=== PATIENT | female | born 1955 | race Caucasian/White ===

== ENCOUNTER → 2016-07-13 | Outpatient (CLI) | payer BC ==
[~2016-07-13] MED LIST: ACET-1256 PO; ACET1TAB84 PO; ASPI-232 PO; ATOR10TA82 PO; BUPR-83 PO; CLR10 PO; FLUO40CA8 PO; MELATAB2 PO; MELO7.5T5 PO; MULT-506 PO; PRLSR20 PO; TRAM-10 PO; TRIATAB3 PO
--- NOTE | 2016-07-13 17:13 | MAMMOGRAPHY REPORT ---
BILATERAL DIGITAL SCREENING MAMMOGRAM TOMOSYNTHESIS WITH CAD: 07/13/2016 CLINICAL HISTORY: Routine screening. Patient has no complaints. TECHNIQUE: Breast tomosynthesis in addition to standard 2D mammography was performed. Current study was also evaluated with a Computer Aided Detection (CAD) system. COMPARISON: Mammograms from [facility] dated 08/23/2007, 09/12/2008, 01/20/2010, 01/18/2012. BREAST COMPOSITION: The tissue of both breasts is almost entirely fatty. FINDINGS: There are minimal vascular calcifications in the breasts. Evidence of prior surgery in the right upper outer quadrant. Stable nodular asymmetry in the lateral right breast. No new suspiciou s mass, architectural distortion or cluster of microcalcifications is seen. IMPRESSION: ACR BI-RADS CATEGORY 1: NEGATIVE There is no mammographic evidence of malignancy. A 1 year screening mammogram is recommended. The pa tient will receive written notification of the results. Approximately 10% of breast cancers are not detected with mammography. A negative mammographic report should not delay biopsy if a clinically suggestive mass is present. Christel Marie M.D. ay/:07/13/2016 14:19:56 Stripe Matcher: Sil KAURR, M, [facility] letter sent: Normal 1/2 BI-RADS Code: ACR BI-RADS Category 1: Negative
== END | disposition home or self-care (01) ==
LOC: C.MAMM 13:29
PROVIDERS: ATTEND Nurse Practitioner Family
DX: Z12.31 Encounter for screening mammogram for malignant neoplasm of breast (principal)

== ENCOUNTER → 2016-08-12 | Outpatient (CLI) | payer BC ==
[~2016-08-12] VITALS: Ht 165.1 cm; Wt 88.6 kg
[~2016-08-12] MED LIST changes: -ATOR10TA82 PO; +ATOR10TA88 PO
[2016-08-12 12:08] VITALS: Ht 165.1 cm; Wt 88.6 kg
--- NOTE | 2016-08-12 12:43 | PAT Medication Instructions ---
Service Date Aug 12, 2016. Current Home Medication List Acetaminophen (Tylenol), 2 TAB PO Q6 PRN for Pain Acetaminophen (Tylenol Arthritis Ext Rel), 650 MG PO QPM Bupropion (Wellbutrin), 100 MG PO QAM Fluoxetine (Prozac), 20 MG PO HS Loratadine (Claritin), 10 MG PO QAM Melatonin (Melatonin Maximum Strengt), 2 TAB PO HS Meloxicam (Mobic), 15 MG PO HS Multivitamin (Multivitamin), 1 TAB PO HS Omeprazole (Prilosec), 20 MG PO BID Tramadol (Ultram), 50 MG PO Q8H PRN for Pain Triamterene/Hctz (Triamterene/Hctz 37.5-25MG), 1 TAB PO QAM Medication Instructions For Your Scheduled Surgery - Hold the following medications 7 days prior to surgery per surgeon's instructions: Meloxicam (Mobic), 15 MG PO HS - Hold the following medications the morning of surgery: Loratadine (Claritin), 10 MG PO QAM Triamterene/Hctz (Triamterene/Hctz 37.5-25MG), 1 TAB PO QAM - Take the following medications the morning of surgery with a sip of water: Acetaminophen (Tylenol), 2 TAB PO Q6 PRN for Pain (may take if needed up to 4 hours prior to surgery) Tramadol (Ultram), 50 MG PO Q8H PRN for Pain (may take if needed up to 4 hours prior to surgery) Bupropion (Wellbutrin), 100 MG PO QAM Fluoxetine (Prozac), 20 MG PO QAM Omeprazole (Prilosec), 20 MG PO BID - Take the following medications as scheduled the night before surgery: Acetaminophen (Tylenol), 2 TAB PO Q6 PRN for Pain Acetaminophen (Tylenol Arthritis Ext Rel), 650 MG PO QPM Melatonin (Melatonin Maximum Strengt), 2 TAB PO HS Multivitamin (Multivitamin), 1 TAB PO HS Tramadol (Ultram), 50 MG PO Q8H PRN for Pain Omeprazole (Prilosec), 20 MG PO BID If you have any questions please call us at [phone] or [phone] or [phone]
--- NOTE | 2016-08-12 13:34 | DIAGNOSTIC IMAGING REPORT ---
CHEST PREADMISSION(PA/LAT) CLINICAL HISTORY: 61 years-old Female presenting with PAT. TECHNIQUE: PA and lateral views of the chest were obtained. COMPARISON: 08/14/2016. FINDINGS: Mild tortuosity of the descending thoracic aorta secondary to scoliotic curvature of the lower thoracic spine.. Cardiac silhouette normal. Lungs and pleural spaces clear. Heterogeneous appearance of the right glenoid may suggest degenerative changes. Otherwise osseous structures and upper abdomen normal. IMPRESSION: 1. No acute cardiopulmonary disease. Electronically signed by: Alcides Solorzano 08/12/2016 1:33 PM Dictated Date/Time: 08/12/2016 1:31 PM
[2016-08-12 13:47] LABS: INR 1.1 (0.9-1.1); PROTHROMBIN TIME (PATIENT) 11.7 SECONDS (9.0-12.0)
[2016-08-12 13:49] LABS: HEMATOCRIT 45.8 % (37-47); MEAN CELL VOLUME 67.3 fL (80-100); MEAN CORPUSCULAR HEMOGLOBIN 18.5 pg (25-34); MEAN CORPUSCULAR HGB CONC 27.5 g/dl (32-36); MEAN PLATELET VOLUME 10.2 fL (7.4-10.4); PLATELET COUNT 689 K/uL (130-400); RED BLOOD COUNT 6.81 M/uL (4.2-5.4); WHITE BLOOD COUNT 12.49 K/uL (4.8-10.8)
[2016-08-12 13:55] LABS: URINE APPEARANCE CLOUDY (CLEAR); URINE BILIRUBIN NEG (NEG); URINE COLOR DK YELLOW; URINE EPITHELIAL CELL AUTO >30 /lpf (0-5); URINE NITRITE NEG (NEG); URINE SPECIFIC GRAVITY 1.022 (1.000-1.030); UROBILINOGEN NEG (NEG); ZZUR CULT IF INDIC CLEAN CATCH NO
[2016-08-12 13:59] LABS: BASO % 0.6 %; BASO ABS # 0.07 K/uL (0-0.2); COMPLETE YES; EOS % 3.7 %; ESTIMATED AVERAGE GLUCOSE 114 mg/dl; HA1C FLAG Normal (Normal); IG% 0.2 %; LYMPH % 15.7 %; LYMPH ABS # 1.96 K/uL (1.2-3.4); MICROCYTOSIS PRESENT; MONO % 5.5 %; NEUT % 74.3 %; OVALOCYTES 1+
[2016-08-12 14:00] LABS: MANUAL MICROSCOPIC REQUIRED? NO; REVIEW REQ? NO
[2016-08-12 14:19] LABS: BUN/CREATININE RATIO 16.4 (10-20); CALCIUM 9.2 mg/dl (8.5-10.1); CREATININE 0.99 mg/dl (0.60-1.20); POTASSIUM 4.1 mmol/L (3.5-5.1)
== END | disposition home or self-care (01) ==
LOC: C.LAB 08:00 → EDSTATUS 08-31 07:00
PROVIDERS: ATTEND Orthopaedic Surgery Sports Medicine
DX: Z01.810 Encounter for preprocedural cardiovascular examination (principal); Z01.811 Encounter for preprocedural respiratory examination; Z01.812 Encounter for preprocedural laboratory examination

== ENCOUNTER → 2017-01-31 | Outpatient (CLI) | payer BC ==
[~2017-01-31] MED LIST changes: -ASPI-232 PO; -ATOR10TA88 PO
[2017-01-31 17:50] LABS: ALT/SGPT 31 U/L (12-78); BLOOD UREA NITROGEN 28 mg/dl (7-18); BUN/CREATININE RATIO 30.4 (10-20); CALCIUM 8.3 mg/dl (8.5-10.1); CARBON DIOXIDE 26 mmol/L (21-32); CHLORIDE 107 mmol/L (98-107); CREATININE 0.92 mg/dl (0.60-1.20); GLUCOSE 93 mg/dl (70-99); POTASSIUM 3.4 mmol/L (3.5-5.1); SODIUM 140 mmol/L (136-145)
[2017-01-31 17:53] LABS: ALB/GLOB RATIO 1.1 (0.9-2); ALKALINE PHOSPHATASE 110 U/L (45-117); AST/SGOT 10 U/L (15-37)
[2017-01-31 19:37] LABS: ANISOCYTOSIS PRESENT; BASO % 0.5 %; BASO ABS # 0.06 K/uL (0-0.2); COMPLETE YES; EOS % 1.8 %; HYPERSEGMENTED POLYS 1+; IG% 0.4 %; LYMPH % 13.2 %; LYMPH ABS # 1.66 K/uL (1.2-3.4); MEAN CELL VOLUME 75.9 fL (80-100); MEAN CORPUSCULAR HEMOGLOBIN 22.3 pg (25-34); MEAN CORPUSCULAR HGB CONC 29.4 g/dl (32-36); MEAN PLATELET VOLUME 10.4 fL (7.4-10.4); MONO % 3.3 %; NEUT % 80.8 %; OVALOCYTES 1+; PLATELET COUNT 290 K/uL (130-400); POLYCHROMASIA 1+; RED BLOOD COUNT 6.72 M/uL (4.2-5.4); SPHEROCYTE OCCASIONAL; WHITE BLOOD COUNT 12.61 K/uL (4.8-10.8)
== END | disposition home or self-care (01) ==
LOC: C.LABMFLN 11:47
PROVIDERS: ATTEND Internal Medicine Hematology & Oncology
DX: D47.3 Essential (hemorrhagic) thrombocythemia (principal); D75.1 Secondary polycythemia

== ENCOUNTER → 2017-02-24 | Outpatient (CLI) | payer BC ==
[2017-02-24 16:36] LABS: BASO % 0.3 %; BASO ABS # 0.03 K/uL (0-0.2); EOS % 0.3 %; EOS ABS # 0.03 K/uL (0-0.5); HEMATOCRIT 56.4 % (37-47); HEMOGLOBIN 16.8 g/dL (12.0-16.0); IG# 0.07 K/uL (0.00-0.02); LYMPH % 5.5 %; LYMPH ABS # 0.66 K/uL (1.2-3.4); MEAN CELL VOLUME 81.2 fL (80-100); MEAN CORPUSCULAR HEMOGLOBIN 24.2 pg (25-34); MEAN CORPUSCULAR HGB CONC 29.8 g/dl (32-36); MEAN PLATELET VOLUME 10.3 fL (7.4-10.4); MONO % 1.8 %; MONO ABS # 0.22 K/uL (0.11-0.59); NEUT % 91.5 %; NEUT ABS # 10.95 K/uL (1.4-6.5); NUCLEATED RED BLOOD CELL ABS 0.02 K/uL (0-0); PLATELET COUNT 789 K/uL (130-400); RED CELL DISTRIBUTION WIDTH CV 26.3 % (11.5-14.5); RED CELL DISTRIBUTION WIDTH SD 74.8 fL (36.4-46.3); WHITE BLOOD COUNT 11.96 K/uL (4.8-10.8)
[2017-02-24 17:11] LABS: ALBUMIN 3.8 gm/dl (3.4-5.0); ALT/SGPT 33 U/L (12-78); AST/SGOT 12 U/L (15-37); CREATININE 0.91 mg/dl (0.60-1.20); URIC ACID 7.8 mg/dl (2.6-7.2)
[2017-02-24 17:13] LABS: ALKALINE PHOSPHATASE 114 U/L (45-117); TOTAL PROTEIN 7.8 gm/dl (6.4-8.2)
--- NOTE | 2017-02-24 18:45 | DIAGNOSTIC IMAGING REPORT ---
R FOOT MIN 3 VIEWS ROUTINE HISTORY: 61 years-old Female D45 Polycythemia veraM10.9 [id number] Pain in joint of right an COMPARISON: None available TECHNIQUE: 3 views of the right foot FINDINGS: The bones appear mildly demineralized. Mild to moderate general changes of the first MTP joint. Mild to moderate general changes also noted throughout multiple interphalangeal joints. Articular and periarticular erosions are seen throughout the midfoot, notably involving the metatarsal phalangeal joints. Marginal sclerosis also noted within these distributions. Ill-defined lucencies are noted within the first metatarsal head which may reflect additional erosions. No classic erosions with overhanging edges identified. Moderate sized enthesophyte about the calcaneus. Mild forefoot soft tissue swelling. IMPRESSION: 1. No acute fracture or subluxation. 2. Articular and periarticular erosions are seen throughout the midfoot, notably involving the metatarsal phalangeal joints and navicular cuneiform articulations with areas of marginal sclerosis. These findings suggest inflammatory arthropathy with crystalline arthropathy such as gout also within the differential. 3. Mild bone demineralization. The above report was generated using voice recognition software. It may contain grammatical, syntax or spelling errors. Electronically signed by: Duc Harris M.D. 02/24/2017 6:44 PM Dictated Date/Time: 02/24/2017 4:13 PM
== END | disposition home or self-care (01) ==
LOC: C.RAD1850 15:42
PROVIDERS: ATTEND Internal Medicine Rheumatology
DX: D45 Polycythemia vera (principal); M10.9 Gout, unspecified; M25.571 Pain in right ankle and joints of right foot

== ENCOUNTER → 2017-03-03 | Outpatient (CLI) | payer BC ==
[2017-03-03 18:37] LABS: BASO % 0.8 %; BASO ABS # 0.06 K/uL (0-0.2); EOS % 1.7 %; EOS ABS # 0.13 K/uL (0-0.5); HEMATOCRIT 55.6 % (37-47); HEMOGLOBIN 16.6 g/dL (12.0-16.0); IG# 0.02 K/uL (0.00-0.02); LYMPH ABS # 2.17 K/uL (1.2-3.4); MEAN CELL VOLUME 85.4 fL (80-100); MEAN CORPUSCULAR HEMOGLOBIN 25.5 pg (25-34); MEAN CORPUSCULAR HGB CONC 29.9 g/dl (32-36); MEAN PLATELET VOLUME 10.7 fL (7.4-10.4); MONO % 3.7 %; MONO ABS # 0.28 K/uL (0.11-0.59); NEUT % 64.5 %; NEUT ABS # 4.83 K/uL (1.4-6.5); PLATELET COUNT 300 K/uL (130-400); RED CELL DISTRIBUTION WIDTH CV 27.7 % (11.5-14.5); RED CELL DISTRIBUTION WIDTH SD 85.9 fL (36.4-46.3); WHITE BLOOD COUNT 7.49 K/uL (4.8-10.8)
== END | disposition home or self-care (01) ==
LOC: C.LABMFLN 11:34
PROVIDERS: ATTEND Internal Medicine Hematology & Oncology
DX: D47.3 Essential (hemorrhagic) thrombocythemia (principal); D75.1 Secondary polycythemia

== ENCOUNTER → 2017-03-16 | Outpatient (CLI) | payer BC | END | disposition home or self-care (01) | LOC: C.LABMFLN 13:49 | PROVIDERS: ATTEND Internal Medicine Rheumatology | DX: M10.9 Gout, unspecified (principal); M25.571 Pain in right ankle and joints of right foot; Z79.52 Long term (current) use of systemic steroids ==

== ENCOUNTER → 2017-09-25 | Outpatient (CLI) | payer BC ==
[2017-09-25 18:27] LABS: BASO % 0.5 %; BASO ABS # 0.03 K/uL (0-0.2); EOS % 1.9 %; EOS ABS # 0.11 K/uL (0-0.5); HEMATOCRIT 38.9 % (37-47); IG# 0.01 K/uL (0.00-0.02); LYMPH % 38.8 %; LYMPH ABS # 2.22 K/uL (1.2-3.4); MEAN CELL VOLUME 100.3 fL (80-100); MEAN CORPUSCULAR HEMOGLOBIN 33.5 pg (25-34); MEAN CORPUSCULAR HGB CONC 33.4 g/dl (32-36); MEAN PLATELET VOLUME 10.7 fL (7.4-10.4); MONO ABS # 0.57 K/uL (0.11-0.59); NEUT % 48.6 %; NEUT ABS # 2.78 K/uL (1.4-6.5); PLATELET COUNT 488 K/uL (130-400); RED CELL DISTRIBUTION WIDTH CV 14.1 % (11.5-14.5); RED CELL DISTRIBUTION WIDTH SD 51.5 fL (36.4-46.3); WHITE BLOOD COUNT 5.72 K/uL (4.8-10.8)
[2017-09-25 19:45] LABS: ALBUMIN 3.8 gm/dl (3.4-5.0); ALKALINE PHOSPHATASE 137 U/L (45-117); ALT/SGPT 42 U/L (12-78); AST/SGOT 22 U/L (15-37); BLOOD UREA NITROGEN 19 mg/dl (7-18); CALCIUM 8.6 mg/dl (8.5-10.1); CARBON DIOXIDE 26 mmol/L (21-32); CREATININE 1.03 mg/dl (0.60-1.20); GLUCOSE 93 mg/dl (70-99); SODIUM 138 mmol/L (136-145); TOTAL PROTEIN 7.5 gm/dl (6.4-8.2)
== END | disposition home or self-care (01) ==
LOC: C.LABMFLN 10:53
PROVIDERS: ATTEND Nurse Practitioner Family
DX: D45 Polycythemia vera (principal)

== ENCOUNTER 2018-04-19 06:53 | Inpatient (IN) ==
--- NOTE | 2018-03-08 16:06 | PAT Medication Instructions ---
Medication Instructions Date of Service March 08, 2018 Home Medications allopurinol 200 mg PO QAM aspirin [Aspirin Low Dose] 81 mg PO QPM bupropion HCl 100 mg PO QAM fluoxetine 20 mg PO QAM meloxicam 7.5 mg PO QPM omeprazole 20 mg PO BID ruxolitinib [Jakafi] 10 mg PO QPM triamterene-hydrochlorothiazid .5 tab PO QAM ASK your surgeon for instructions meloxicam 7.5 mg PO QPM ASK your prescriber and surgeon ruxolitinib [Jakafi] 10 mg PO QPM DO NOT take the morning of surgery triamterene-hydrochlorothiazid .5 tab PO QAM Take morning of surgery With a small sip of water, OTHERWISE NOTHING TO EAT OR DRINK AFTER MIDNIGHT: allopurinol 200 mg PO QAM bupropion HCl 100 mg PO QAM fluoxetine 20 mg PO QAM omeprazole 20 mg PO BID Take evening before surgery aspirin [Aspirin Low Dose] 81 mg PO QPM omeprazole 20 mg PO BID Other Notes If you have any questions please call us at [phone] or [phone] or [phone] or [phone]
--- NOTE | 2018-03-09 11:37 | Anesthesiology Consultation ---
Date of Service March 09, 2018 Assessment & Plan (1) Encounter for pre-operative examination: Chart Review Chart Review: Acceptable Risk for Surgery and Patient seen in Pre Admission Testing Teaching & Discussion Instructed NPO after midnight before surgery, except medications with 15 cc of water. Medication instructions provided according to the PAT guidelines. History Surgery Operation Date: 04/19/18 07:15 Proposed Procedures p Left Total Knee Arthroplasty - Fady Gómez MD Height/Weight Height: 5 ft 5 in Weight: 93.4 kg Allergies Allergy/AdvReac Type Severity Reaction Status Date / Time codeine AdvReac Mild NAUSEA/VOMI Verified 03/07/18 09:49 TING SEASONAL Allergy Unknown sneezing, Uncoded 03/07/18 09:49 eyes irritated, runny nose Medications Home Medications Medication Instructions Recorded Confirmed Last Taken allopurinol 200 mg PO QAM 03/07/18 03/07/18 Unknown aspirin [Aspirin Low Dose] 81 mg PO QPM 03/07/18 03/07/18 Unknown bupropion HCl 100 mg PO QAM 03/07/18 03/07/18 Unknown fluoxetine 20 mg PO QAM 03/07/18 03/07/18 Unknown meloxicam 7.5 mg PO QPM 03/07/18 03/07/18 Unknown omeprazole 20 mg PO BID 03/07/18 03/07/18 Unknown ruxolitinib [Jakafi] 10 mg PO QPM 03/07/18 03/07/18 Unknown triamterene-hydrochlorothiazid 0.5 tab PO QAM 03/07/18 03/07/18 Unknown Past Medical History Medical History Anxiety DJD (degenerative joint disease), lumbar GERD (gastroesophageal reflux disease) Gout Hx of polycythemia vera On Jakafi for this, follows with hematology Hypertension Nausea and vomiting after administration of anesthetic agent Numbness and tingling in both hands r/t polycythemia Osteoarthritis Seasonal allergies Past Surgical History Surgical History History of x3 Hx of arthroscopy of right knee Hx of bariatric surgery x2 - Lap bands insertion and removal Hx of hysterectomy Past Anesthesia History No Family Hx of Anesthesia Complications and Other (PONV with more remote morgan geries, has been OK with more recent surgeries) Motion Sickness Screening History of Motion Sickness: Yes Social History Smoking Status: Never smoker Do You Dip or Chew Tobacco: No Hx Alcohol Use: Yes Alcohol type: wine alcohol intake frequency: holidays/special occasions only Hx Substance Use: No Exercise / Class Metabolic Activity III < 4 Walking/Shop/Light housework (+SOB with stairs, per pt 2/2 polycythemia, denies CP) Review of Systems Pt denies any recent chest pain, shortness of breath, palpitations, cough, fever or URI. Physical Exam Vital Signs BP: 126/84 P: 69bpm SPO2: 94% RA T: 98.3 F R: 16 ENMT Mouth: no dental restorations, no chipped teeth and no loose teeth Thyromental Distance: > or= 3.5 Finger Breadths (3.5) Mallampati Class: III Soft tissue growth on hard palate. Pt reports this has been scraped/cut with previous intubations. Neck + thick neck; neck extension not limited Respiratory normal respiratory effort Auscultation: lungs clear to auscultation bilaterally Cardiovascular Rate/Rhythm: regular rate and regular rhythm Heart Sounds: no murmur Vessels: no carotid bruit Testing Electrocardiogram Date: 03/09/18 Findings: + NSR @ (64) Nonspecific ST and TWA. Chest X-Ray Date: 03/09/18 Findings: + NAD Stress Test Date: 08/14/13 Type: exercise Resting EF: 65% 1. Negative stress echo for ischemia at 91% MPHR. 2. Negative exercise ECG for ischemia at 91% MPHR. 3. No arrhythmia were noted with stress. 4. No chest pain. 5. Mildly hypertensive response to exercise. 6. Good exercise tolerance; 10 METS. Echo: 1. Normal LV size, wall motion, and systolic function. Mild concentric left ventricular hypertrophy. Grade I diastolic dysfunction, (abnormal relaxation pattern). 2. No significant valvular abnormalities. 3. No prior study available for comparison. Laboratory Results 03/09/18 11:22 03/09/18 11:22 Blood Type O Negative 03/09/18 11:22 Antibody Screen NEGATIVE 03/09/18 11:22 PT 11.5 Seconds (9.0-12.0) 03/09/18 11:22 INR 1.1 (0.9-1.1) 03/09/18 11:22 APTT 27.3 Seconds (21.0-31.0) 03/09/18 11:22 Hemoglobin A1c 5.7 % (4.5-5.6) H 03/09/18 11:22 Urine Color Yellow 03/09/18 11:22 Urine Appearance Clear (Clear) 03/09/18 11:22 Urine pH 5.0 (4.5-7.5) 03/09/18 11:22 Ur Specific [place] 1.016 (1.000-1.030) 03/09/18 11:22 Urine Protein Negative (Negative) 03/09/18 11:22 Urine Glucose (UA) Negative (Negative) 03/09/18 11:22 Urine Ketones Negative (Negative) 03/09/18 11:22 Urine Nitrite Negative (Negative) 03/09/18 11:22 Ur Leukocyte Esterase Negative (Negative) 03/09/18 11:22
[2018-03-09 11:51] LABS: Basophils # (auto) 0.03 K/uL (0-0.2); Basophils % (auto) 0.4 %; Hematocrit (blood only) 42.5 % (37-47); Hemoglobin 13.5 g/dL (12.0-16.0); Immature Granulocytes # (auto) 0.03 K/uL (0.00-0.02); Immature Granulocytes % (auto) 0.4 %; Lymphocytes # (auto) 1.65 K/uL (1.2-3.4); Lymphocytes % (auto) 24.7 %; Mean Corpuscular Hgb Conc 31.8 g/dL (32-36); Mean Corpuscular Volume 93.2 fL (80-100); Mean Platelet Volume 11.1 fL (7.4-10.4); Monocytes % (auto) 4.5 %; Neutrophils # (auto) 4.47 K/uL (1.4-6.5); Platelet Count 547 K/uL (130-400); RDW Coefficient of Variation 14.8 % (11.5-14.5); RDW Standard Deviation 49.7 fL (36.4-46.3); Red Blood Count 4.56 M/uL (4.2-5.4); White Blood Count 6.68 K/uL (4.8-10.8)
[2018-03-09 11:56] LABS: Estimated Average Glucose 117 mg/dl; Hemoglobin A1C 5.7 % (4.5-5.6)
[2018-03-09 11:57] LABS: Appearance Urine Clear (Clear); Bilirubin Urine Negative (Negative); Blood Urine Negative (Negative); Color Urine Yellow; Glucose Urine UA Negative (Negative); Ketones Urine Negative (Negative); Leukocyte Esterase Urine Negative (Negative); Nitrite Urine Negative (Negative); Protein Urine Negative (Negative); Specific Gravity Urine 1.016 (1.000-1.030); Urobilinogen Urine Negative (Negative)
[2018-03-09 12:01] LABS: INR 1.1 (0.9-1.1); Partial Thromboplastin Ratio 1.1; Partial Thromboplastin Time 27.3 Seconds (21.0-31.0); Prothrombin Time 11.5 Seconds (9.0-12.0)
--- NOTE | 2018-03-09 12:10 | XRay Report ---
XR chest Pre-admission PA/Lat HISTORY: 62 years-old Female pat preoperative exam. No acute chest complaints COMPARISON: Chest radiograph 08/12/2016 TECHNIQUE: PA and lateral views of the chest FINDINGS: Cardiomediastinal and hilar silhouettes appear unchanged. No pneumothorax, pleural effusion, focal ai rspace consolidation or overt pulmonary edema. Severe degenerative changes about the right shoulder. Convex left curvature about the mid to lower thoracic spine with multilevel spondylitic spurring and intervertebral disc space narrowing. IMPRESSION: No acute process. The above report was generated using voice recognition software. It may contain grammatical, syntax o r spelling errors. Electronically signed by: Duc Harris M.D. 03/09/2018 12:08 PM
[2018-03-09 12:29] LABS: Albumin Level 3.9 gm/dl (3.4-5.0); BUN Creatinine Ratio 20.4 (10-20); Calcium 8.7 mg/dl (8.5-10.1); Creatinine Clr Calc Pharmacy 64.9 ml/min; Est GFR (African American) 69.8; Est GFR (Non-African American) 60.2; Potassium 3.5 mmol/L (3.5-5.1)
--- NOTE | 2018-04-18 21:05 | History and Physical Report ---
DATE OF ADMISSION: 04/19/2018 CHIEF COMPLAINT: Chronic left knee pain. HISTORY OF PRESENT ILLNESS: This is a 63-year-old female patient of Dr. Gómez'la complaining of chronic left knee pain and instability, longstanding, now progressively getting worse. The patient has failed conservative treatment including intra-articular injections, tramadol and the use of a brace. She has increased pain with weightbearing activities and her pain does interfere with her activities of daily living. 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 SOCIAL HISTORY: Nonsmoker, nondrinker. PAST SURGICAL HISTORY: C-sections x3 and hysterectomy. FAMILY HISTORY: Noncontributory. REVIEW OF SYSTEMS: Chronic left knee pain and instability. Otherwise denies any shortness of breath, chest pain, nausea, vomiting or any joint complaints. MEDICATIONS: Triamterene/hydrochlorothiazide 37.5/25 daily, bupropion 100 mg daily, loratadine 10 mg daily, omeprazole 20 mg daily, fluoxetine 20 mg daily, Jakafi 10 mg twice daily, meloxicam 15 mg daily. ALLERGIES: INCLUDE CODEINE. PHYSICAL EXAMINATION: GENERAL: Well-developed, well-nourished 63-year-old female in no acute distress. She is alert and oriented x3 and pleasant. HEENT: Normocephalic, atraumatic. Extraocular motions are intact. Pupils are equal and reactive to light. HEART: Regular rate and rhythm. No murmurs appreciated. LUNGS: Clear. ABDOMEN: Soft, nontender, bowel sounds present. EXTREMITIES: Left knee reveals a varus deformity with mild effusion. She has medial joint line tenderness with crepitation with passive range of motion. Range of motion is 0-135. She has 5/5 strength with pain. NEUROLOGIC: Neurovascularly, she is intact in the left lower extremity. DIAGNOSES: Left knee end-stage osteoarthritis, polycythemia vera, osteoarthritis, acid reflux, obesity. PLAN: The patient was advised of her diagnosis. Indications, risks, benefits, postop course have all been reviewed. The patient wished to proceed with a left total knee arthroplasty. Necessary consent forms, preoperative testing and clearances will be obtained.
[~2018-04-19 06:53] MED LIST changes: -ACET-1256 PO; -ACET1TAB84 PO; +ACETAMINOPHEN 500 MG TAB PO SCH; +BUPIVACAINE 0.5 % 5 MG/1 ML PF 10ML VIAL ONE; +BUPIVACAINE/EPINEPHRINE 0.5% MPF 1:200,000 30 ML VIAL ONE; -BUPR-83 PO; +CEFAZOLIN 2000MG 2,000 MG/15 ML SYR IV SCH; -CLR10 PO; +CeleBREX 200 MG CAP PO SCH; +DEXAMETHASONE SOD INJ 4 MG/ML VIAL ONE; +FAMOTIDINE 20 MG TAB PO SCH; -FLUO40CA8 PO; +GABAPENTIN 300 MG x 2 PO SCH; +LR 500ML BOLUS, THEN 15ML/HR IV SCH; -MELATAB2 PO; -MELO7.5T5 PO; +METOCLOPRAMIDE HCL 10 MG TABLET PO SCH; -MULT-506 PO; -PRLSR20 PO; +ROPIVACAINE 0.5% HCL/PF 150 MG, BUPIVACAINE 0.5% MPF 30 ML, EPINEPHrine 30MG/30ML (OR U... INFIL SCH; -TRAM-10 PO; -TRIATAB3 PO; +dexAMETHasone 4 MG TAB PO SCH
[2018-04-19] MEDS ORDERED: PROPOFOL IV EMULSION 10 MG/ML 20 ML VIAL IV ONE ×3 (07:46→10:53)
[2018-04-19] MEDS ORDERED: LIDOCAINE HCL 2% 2 ML VIAL/AMP(20MG/ML) INFIL ONE (07:46)
[2018-04-19] MEDS ORDERED: fentaNYL citrate 100 MCG/2 ML VIAL ONE (07:46)
[2018-04-19] MEDS ORDERED: MIDAZOLAM HCL 1 MG/ML 2ML VIAL ONE (07:46)
[2018-04-19] MEDS ORDERED: POVIDONE-IODINE OP SOLN 30 ML BTL ONE (09:07)
[2018-04-19] MEDS ORDERED: ORTHO JOINT ANESTHETIC ONE (09:07)
[2018-04-19] MEDS ORDERED: BACITRACIN INJ 50,000 UNIT VIAL ONE (09:07)
--- NOTE | 2018-04-19 09:13 | History & Physical Bridge Note ---
Date of Service April 19, 2018 History & Physical Bridge Note I have examined the patient, reviewed the History & Physical and in the interval since the performance of the History & Physical I have noted the following changes of clinical significance: no changes noted
[2018-04-19] MEDS ORDERED: ONDANSETRON INJ 2 MG/ML 2 ML VIAL ONE (09:44)
[2018-04-19] MEDS ORDERED: fentaNYL citrate 100 MCG/2 ML VIAL IV PRN (09:59)
[2018-04-19] MEDS ORDERED: ePHEDrine sulfate 50 MG/ML AMP IV PRN (09:59)
[2018-04-19] MEDS ORDERED: ATROPINE SULFATE 0.1 MG/ML 10ML SYR IV PRN (09:59)
[2018-04-19] MEDS ORDERED: ONDANSETRON INJ 2 MG/ML 2 ML VIAL IV PRN ×2 (09:59→12:13)
--- NOTE | 2018-04-19 10:01 | Anesthesiology Progress Note ---
Date of Service April 19, 2018 Anesthesia Post Procedure Vital Signs Vital Signs: Temp Pulse Resp BP Pulse Ox 04/19/18 08:17 36.8 C 68 20 151/97 H 94 Pain Intensity Left Knee: Pain Intensity: 7 Notes Mental Status: alert / awake / arousable Patient Amnestic to Procedure: Yes Nausea / Vomiting: adequately controlled Pain: adequately controlled Airway Patency, RR, SpO2: stable & adequate BP & HR: stable & adequate Hydration State: stable & adequate Neuraxial Anesthesia: was administered and sensory block is resolving Anesthetic Complications: no major complications apparent
--- NOTE | 2018-04-19 11:24 | Post Operative Brief Note ---
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
--- NOTE | 2018-04-19 11:47 | XRay Report ---
XR knee LT 2V routine CLINICAL HISTORY: Surgical Post Op COMPARISON: None FINDINGS: Alignment of the total left knee arthroplasty is anatomic. There is no fracture or unexpec shauna radiopaque foreign body. There are drains and skin rui. IMPRESSION: Expected findings following total left knee arthroplasty. Electronically signed by: Jonatan Lofton M.D. 04/19/2018 11:46 AM
--- NOTE | 2018-04-19 11:54 | Anesthesiology Progress Note ---
Date of Service April 19, 2018 Anesthesia Post Procedure Vital Signs Vital Signs: Temp Pulse Pulse Resp BP Pulse Ox 04/19/18 11:45 36.6 C 80 14 109/73 96 04/19/18 11:35 84 14 124/70 98 04/19/18 11:25 37.2 C 87 14 125/73 98 04/19/18 08:17 36.8 C 68 20 151/97 H 94 Pain Intensity Left Knee: Pain Intensity: 7 Notes Mental Status: alert / awake / arousable Patient Amnestic to Procedure: Yes Nausea / Vomiting: adequately controlled Pain: adequately controlled Airway Patency, RR, SpO2: stable & adequate BP & HR: stable & adequate Hydration State: stable & adequate Neuraxial Anesthesia: was administered and sensory block is resolving Anesthetic Complications: no major complications apparent
[2018-04-19] MEDS ORDERED: MAGNESIUM HYDROXIDE SUSP 30 ML UDC PO PRN (12:13)
[2018-04-19] MEDS ORDERED: BISACODYL 10 MG SUPP PR PRN (12:13)
[2018-04-19] MEDS ORDERED: NALOXONE HCL 0.4 MG/1 ML VIAL/CARP IV PRN (12:13)
[2018-04-19] MEDS ORDERED: SODIUM CHLORIDE 0.9% 1000ML 1,000 ML IV SCH (12:13)
[2018-04-19] MEDS ORDERED: HYDROmorphone INJ 0.5 MG/0.5 ML SYR IV PRN (12:13)
[2018-04-19] MEDS: ACETAMINOPHEN 500 MG TAB PO SCH ×2 (13:22→20:58)
[2018-04-19] MEDS: RUXOLITINIB 10 MG PO SCH (14:48)
--- NOTE | 2018-04-19 15:29 | Consultation ---
Date of Consultation April 19, 2018 Assessment & Plan (1) History of total knee arthroplasty: This patient is a 63-year-old female with a history of polycythemia vera and thrombocytosis, GERD, HTN, anxiety disorder, gout, prediabetes, elevated alkaline phosphatase, and osteoarthritis, who is admitted after having a left TKA -Postoperative management as per orthopedic surgery -Pain control with scheduled acetaminophen, received dexamethasone and Celebrex preoperatively as well as gabapentin. Also pain control with IV Dilaudid as needed and tramadol as needed -Continue bowel regimen with bisacodyl MS as needed, and scheduled senna at nighttime -DVT prophylaxis with Xarelto 10 mg daily as recommended by her educational diagnostician given her propensity for clot with polycythemia vera and thrombocytosis -Drain in place-management as per orthopedics -Follow postoperative CBC in the morning (2) Hx of polycythemia vera: Follows with hematology, hemoglobin preoperatively was 13.5 and stable Was on hydroxyurea upon diagnosis in 01/2017, is Indra 2 mutation positive, now on Jakafi 10 mg daily and will continue on that here -Follow CBC in the morning (3) Hypertension: Blood pressures here have been normal -will hold Dyazide in the morning until renal function and blood pressure assessed and restart when needed -Follow BMP in the morning (4) Anxiety: Stable -Continue bupropion SR 100 mg once daily as prescribed at home -Continue Prozac 20 mg once daily (5) GERD (gastroesophageal reflux disease): -Stable -Continue PPI once daily (6) Gout: No acute flares at this time. Seen by rheumatology and thought to be secondary possibly to her polycythemia vera and previously possibly due to hydroxyurea use -Continue allopurinol 200 mg once daily -Takes prednisone as needed flareups (7) Osteoarthritis: Stable -Continue pain control as needed-was on meloxicam at home (8) Thrombocytosis: Platelets stable from previous in the 500s-followed by hematology who is aware of this and is following closely -Follow CBC in the morning -Is on her aspirin 81 mg daily to prevent stroke (9) Prediabetes: Hemoglobin A1c barely elevated into the prediabetic range at 5.7% on preoperative labs -Needs counseling on weight loss and low carbohydrate diet No need for sliding scale insulin here (10) DVT prophylaxis: Xarelto 10 mg daily to start in the morning, SCDs Disposition-remain on surgical postoperative floor Hospitalist service will follow along at this time History of Present Illness Reason for Consultation: Postop medical management Requesting Physician: Dr. Gómez Attending Physician: Fady Gómez MD History of Present Illness This patient is a 63-year-old female with a history of polycythemia vera and thrombocytosis, GERD, HTN, anxiety disorder, gout, prediabetes, elevated alkaline phosphatase, and osteoarthritis, who is admitted after having a left TKA. She is doing very well postoperatively. She denies headache or lightheadedness, denies nausea or vomiting and is tolerating p.o. She denies chest pain or shortness of breath. Denies abdominal pain, constipation, diarrhea, or urinary symptoms. Allergies Allergy/AdvReac Type Severity Reaction Status Date / Time codeine AdvReac Mild NAUSEA/VOMI Verified 04/19/18 08:06 TING SEASONAL Allergy Unknown sneezing, Uncoded 04/19/18 08:06 eyes irritated, runny nose Home Medications Home Medications Medication Instructions Recorded Confirmed Type allopurinol 200 mg PO QAM 03/07/18 04/19/18 History aspirin [Aspirin Low Dose] 81 mg PO QPM 03/07/18 04/19/18 History bupropion HCl 100 mg PO QAM 03/07/18 04/19/18 History fluoxetine 20 mg PO QAM 03/07/18 04/19/18 History meloxicam 7.5 mg PO QPM 03/07/18 04/19/18 History omeprazole 20 mg PO BID 03/07/18 04/19/18 History ruxolitinib [Jakafi] 10 mg PO QPM 03/07/18 04/19/18 History triamterene-hydrochlorothiazid 0.5 tab PO QAM 03/07/18 04/19/18 History Patient History Medical History Elevated alkaline phosphatase level Prediabetes Thrombocytosis Anxiety DJD (degenerative joint disease), lumbar GERD (gastroesophageal reflux disease) Gout Hx of polycythemia vera On Jakafi for this, follows with hematology Hypertension Numbness and tingling in both hands r/t polycythemia Osteoarthritis Seasonal allergies Surgical History History of tonsillectomy History of x3 Hx of arthroscopy of right knee Hx of bariatric surgery x2 - Lap bands insertion and removal Hx of hysterectomy Nausea and vomiting after administration of anesthetic agent Family History Other Family history non-contributory Social History Preferred Language: [place] Communication Ability: Effective Beliefs That Will Affect Care: None marital status: Current Living Situation: Family Other Information That Helps Us Care for You: No Feels Safe at Home: Yes Safety Concerns: Feels Safe At This Time Smoking Status: Never smoker Hx Alcohol Use: Yes Hx Substance Use: No Review of Systems 14 point review of systems otherwise reviewed and negative except as per HPI. Physical Exam Vital Signs (Past 24 Hours): Last Vital Signs Temp 37.1 C 04/19/18 11:50 Pulse 81 04/19/18 13:50 Resp 18 04/19/18 13:50 BP 129/76 04/19/18 13:50 Pulse Ox 93 04/19/18 13:50 Constitutional: WD/WN, vitals as above Eyes: PERRL, conjunctivae normal, anicteric sclerae ENMT: external ear and nose normal, oropharynx normal Neck: trachea midline, no thyromegaly Respiratory: normal respiratory effort, lungs clear to auscultation Cardiovascular: RRR, no murmur, no edema Gastrointestinal (Abdomen): normal bowel sounds, soft, nontender, no hepatosplenomegaly Musculoskeletal: Extremities: + extremities abnormal to inspection (Left lower extremity with large Oscar wrap in place not removed), no cyanosis and no clubbing Skin: no rashes, warm and dry Neurologic: moves all extremities and awake; no focal motor deficits Psychiatric: A+Ox3, euthymic affect Results & Data Laboratory Results Preoperative laboratory values reviewed and notable for: Hemoglobin 13.5, platelets 547 CMP within normal limits Hemoglobin A1c mildly elevated at 5.7% (1) Hypertension Hypertension type: essential hypertension Qualified Code(s): I10 - Essential (primary) hypertension (2) GERD (gastroesophageal reflux disease) Esophagitis presence: esophagitis presence not specified Qualified Code(s): K21.9 - Gastro-esophageal reflux disease without esophagitis (3) Gout Gout site: unspecified site Gout etiology: other secondary cause Chronicity: unspecified Qualified Code(s): M10.40 - Other secondary gout, unspecified site (4) History of total knee arthroplasty Laterality: left Qualified Code(s): Z96.652 - Presence of left artificial knee joint
[2018-04-19] MEDS: CEFAZOLIN 2000MG 2,000 MG/15 ML SYR IV SCH (18:36)
[2018-04-19] MEDS: TRAMADOL HCL 50 MG TABLET PO PRN ×2 (18:37→19:31)
[2018-04-19] MEDS: ASPIRIN 81 MG ECTAB PO SCH (20:59)
[2018-04-19] MEDS: SENNA 8.6 MG TAB PO SCH (20:59)
[2018-04-19] MEDS: DOCUSATE SODIUM 100 MG CAP PO SCH (21:30)
[2018-04-20] MEDS: CEFAZOLIN 2000MG 2,000 MG/15 ML SYR IV SCH (02:06)
[2018-04-20] MEDS: ACETAMINOPHEN 500 MG TAB PO SCH ×3 (05:30→21:42)
[2018-04-20 06:16] LABS: Hematocrit (blood only) 36.6 % (37-47); Hemoglobin 11.7 g/dL (12.0-16.0); Mean Platelet Volume 10.8 fL (7.4-10.4); Platelet Count 560 K/uL (130-400); RDW Coefficient of Variation 14.6 % (11.5-14.5); RDW Standard Deviation 49.5 fL (36.4-46.3); Red Blood Count 3.98 M/uL (4.2-5.4); White Blood Count 15.71 K/uL (4.8-10.8)
[2018-04-20 06:49] LABS: BUN Creatinine Ratio 25.9 (10-20); Calcium 8.5 mg/dl (8.5-10.1); Creatinine Clr Calc Pharmacy 56.6 ml/min; Est GFR (African American) 59.7; Est GFR (Non-African American) 51.5; Potassium 4.5 mmol/L (3.5-5.1)
--- NOTE | 2018-04-20 08:06 | Orthopedic Progress Note ---
Date of Service April 20, 2018 Assessment & Plan (1) History of total knee arthroplasty: POD #1, Left TKA DVT proph- Xarelto/ ASA PT/ OT D/C planning- Home w OPPT As per medicine. Subjective POD #1, Feeling well, denies sob, cp, n/v. Pain controlled well. Platelets at normal range for her at 560, h/o polycythemia vera. Physical Exam Vital Signs (Past 24 Hours): Last Vital Signs Temp 37.0 C 04/20/18 07:02 Pulse 64 04/20/18 07:02 Resp 18 04/20/18 07:02 BP 104/68 04/20/18 07:02 Pulse Ox 95 04/20/18 07:02 Physical Exam: Left knee dressings c/d/i, no drainage, toes and ankle mobile. A&Ox3, no calf tenderness. (1) History of total knee arthroplasty Laterality: left Qualified Code(s): Z96.652 - Presence of left artificial knee joint
[2018-04-20] MEDS: MULTIVITAMIN TAB PO SCH (08:34)
[2018-04-20] MEDS: BuPROPion SR 100 MG TABCR PO SCH (08:35)
[2018-04-20] MEDS: ALLOPURINOL 100 MG TAB PO SCH (08:35)
[2018-04-20] MEDS: RIVAROXABAN 10 MG TABLET PO SCH (08:35)
[2018-04-20] MEDS: FLUOXETINE HCL 20 MG CAP PO SCH (08:35)
[2018-04-20] MEDS: RUXOLITINIB 10 MG PO SCH (08:35)
[2018-04-20] MEDS: DOCUSATE SODIUM 100 MG CAP PO SCH ×2 (08:40→17:39)
[2018-04-20] MEDS: TRAMADOL HCL 50 MG TABLET PO PRN ×4 (08:40→21:43)
[2018-04-20] MEDS ORDERED: RUXOLITINIB SCH (09:00)
[2018-04-20] MEDS ORDERED: TRIAMTERENE/HCTZ 37.5/25MG TAB PO SCH (09:00)
[2018-04-20] MEDS ORDERED: PANTOprazole 40 MG TAB PO SCH (09:00)
[2018-04-20] MEDS: PANTOprazole 40 MG TAB PO SCH ×2 (09:05→21:42)
--- NOTE | 2018-04-20 15:01 | Hospitalist Progress Note ---
Date of Service April 20, 2018 Assessment & Plan (1) History of total knee arthroplasty: This patient is a 63-year-old female with a history of polycythemia vera and thrombocytosis, GERD, HTN, anxiety disorder, gout, prediabetes, elevated alkaline phosphatase, and osteoarthritis, who is admitted after having a left TKA -Postoperative management as per orthopedic surgery -Pain control with scheduled acetaminophen, received dexamethasone and Celebrex preoperatively as well as gabapentin. Also pain control with IV Dilaudid as needed and tramadol as needed -Continue bowel regimen with bisacodyl MT as needed, and scheduled senna at nighttime -DVT prophylaxis with Xarelto 10 mg daily as recommended by her director of digital platforms given her propensity for clot with polycythemia vera and thrombocytosis -Drain in place-management as per orthopedics -Postoperative CBC with mild acute blood loss anemia with hemoglobin down to 11.7 from 13.5 (2) Hx of polycythemia vera: Follows with hematology, hemoglobin preoperatively was 13.5 and stable preoperatively and now some mild blood loss as above Was on hydroxyurea upon diagnosis in 01/2017, is Indra 2 mutation positive, now on Jakafi 10 mg daily and will continue on that here (3) Hypertension: Blood pressures here have been normal to low normal this morning -will continue to hold Dyazide but advised patient she can restart it upon discharged home (4) Anxiety: Stable -Continue bupropion SR 100 mg once daily as prescribed at home -Continue Prozac 20 mg once daily (5) GERD (gastroesophageal reflux disease): -Stable -Continue PPI once daily (6) Gout: No acute flares at this time. Seen by rheumatology and thought to be secondary possibly to her polycythemia vera and previously possibly due to hydroxyurea use -Continue allopurinol 200 mg once daily -Takes prednisone as needed for flareups (7) Osteoarthritis: Stable -Continue pain control as needed-was on meloxicam at home (8) Thrombocytosis: Platelets stable from previous in the 500s-followed by hematology who is aware of this and is following closely -Is on her aspirin 81 mg daily to prevent stroke (9) Prediabetes: Hemoglobin A1c barely elevated into the prediabetic range at 5.7% on preoperative labs -Needs counseling on weight loss and low carbohydrate diet No need for sliding scale insulin here as a.m. fasting blood sugar only mildly elevated at 129 -Should follow-up with PCP (10) DVT prophylaxis: Xarelto 10 mg daily, SCDs Disposition-remain on surgical postoperative floor with likely discharged home tomorrow as per orthopedic service Hospitalist service will sign off at this time. Please feel free to reconsult or call with acute or new issues. Subjective Patient feeling well. Pain in the knee is controlled with pain medicine. She denies headache or lightheadedness, denies nausea or vomiting, denies abdominal pain. She moved her bowels last evening. She is eating well. She denies chest pain or shortness of breath. Denies weakness, numbness, or tingling. Review of Systems All systems reviewed & are unremarkable except as noted in HPI & below Physical Exam Vital Signs (Past 24 Hours): Last Vital Signs Temp 36.6 C 04/20/18 10:52 Pulse 65 04/20/18 10:52 Resp 14 04/20/18 10:52 BP 146/85 H 04/20/18 10:52 Pulse Ox 93 04/20/18 10:52 Constitutional: WD/WN, vitals as above Eyes: PERRL, conjunctivae normal, anicteric sclerae ENMT: external ear and nose normal, oropharynx normal Neck: trachea midline, no thyromegaly Respiratory: normal respiratory effort, lungs clear to auscultation Cardiovascular: RRR, no murmur, no edema Gastrointestinal (Abdomen): normal bowel sounds, soft, nontender, no hepatosplenomegaly Musculoskeletal: Extremities: + extremities abnormal to inspection (Left lower extremity with large Oscar wrap in place not removed), no cyanosis and no clubbing Skin: no rashes, warm and dry Neurologic: moves all extremities and awake; no focal motor deficits Psychiatric: A+Ox3, euthymic affect Results & Data Laboratory Results 04/20/18 04/20/18 04/20/18 Range/Units 05:51 05:51 05:51 WBC 15.71 H (4.8-10.8) K/uL RBC 3.98 L (4.2-5.4) M/uL Hgb 11.7 L (12.0-16.0) g/dL Hct 36.6 L (37-47) % MCV 92.0 (80-100) fL MCH 29.4 (25-34) pg MCHC 32.0 (32-36) g/dL RDW Std Deviation 49.5 H (36.4-46.3) fL RDW Coeff of Jeniffer 14.6 H (11.5-14.5) % Plt Count 560 H (130-400) K/uL MPV 10.8 H (7.4-10.4) fL Sodium 140 (136-145) mmol/L Potassium 4.5 (3.5-5.1) mmol/L Chloride 106 (98-107) mmol/L Carbon Dioxide 28 (21-32) mmol/L Anion Gap 6.0 (3-11) BUN 29 H (7-18) mg/dl Creatinine 1.12 (0.6-1.2) mg/dl Est Cr Clr Drug Dosing 56.6 ml/min Est GFR ( Amer) 59.7 Est GFR (Non-Af Amer) 51.5 BUN/Creatinine Ratio 25.9 H (10-20) Glucose 129 H (70-99) mg/dl Calcium 8.5 (8.5-10.1) mg/dl Hepatitis C Ab Screen Neg (Neg) (1) History of total knee arthroplasty Laterality: left Qualified Code(s): Z96.652 - Presence of left artificial knee joint (2) Hypertension Hypertension type: essential hypertension Qualified Code(s): I10 - Essential (primary) hypertension (3) GERD (gastroesophageal reflux disease) Esophagitis presence: esophagitis presence not specified Qualified Code(s): K21.9 - Gastro-esophageal reflux disease without esophagitis (4) Gout Gout site: unspecified site Gout etiology: other secondary cause Chronicity: unspecified Qualified Code(s): M10.40 - Other secondary gout, unspecified site
[2018-04-20] MEDS: SENNA 8.6 MG TAB PO SCH (17:37)
[2018-04-20] MEDS: ASPIRIN 81 MG ECTAB PO SCH (21:42)
[2018-04-20] MEDS: OXYCODONE HCL IR 5 MG TAB (IMMEDIATE RELEASE) PO PRN (23:43)
[2018-04-21] MEDS: TRAMADOL HCL 50 MG TABLET PO PRN ×3 (02:25→11:02)
[2018-04-21] MEDS: OXYCODONE HCL IR 5 MG TAB (IMMEDIATE RELEASE) PO PRN ×2 (04:21→09:44)
[2018-04-21] MEDS: ACETAMINOPHEN 500 MG TAB PO SCH (05:39)
[2018-04-21 06:21] LABS: Hematocrit (blood only) 36.2 % (37-47); Hemoglobin 11.4 g/dL (12.0-16.0); Mean Corpuscular Hgb Conc 31.5 g/dL (32-36); Mean Corpuscular Volume 93.3 fL (80-100); Mean Platelet Volume 10.9 fL (7.4-10.4); Platelet Count 516 K/uL (130-400); RDW Coefficient of Variation 14.9 % (11.5-14.5); RDW Standard Deviation 49.8 fL (36.4-46.3); Red Blood Count 3.88 M/uL (4.2-5.4); White Blood Count 10.62 K/uL (4.8-10.8)
[2018-04-21 06:57] LABS: BUN Creatinine Ratio 23.8 (10-20); Creatinine Clr Calc Pharmacy 57.6 ml/min; Est GFR (Non-African American) 52.6
[2018-04-21] MEDS: RIVAROXABAN 10 MG TABLET PO SCH (07:54)
[2018-04-21] MEDS: RUXOLITINIB 10 MG PO SCH (07:55)
[2018-04-21] MEDS: BuPROPion SR 100 MG TABCR PO SCH (07:55)
[2018-04-21] MEDS: PANTOprazole 40 MG TAB PO SCH (07:55)
[2018-04-21] MEDS: DOCUSATE SODIUM 100 MG CAP PO SCH (07:55)
[2018-04-21] MEDS: MULTIVITAMIN TAB PO SCH (07:55)
[2018-04-21] MEDS: ALLOPURINOL 100 MG TAB PO SCH (07:55)
[2018-04-21] MEDS: FLUOXETINE HCL 20 MG CAP PO SCH (07:55)
--- NOTE | 2018-04-21 09:26 | Orthopedic Progress Note ---
Date of Service April 21, 2018 Assessment & Plan (1) History of total knee arthroplasty: POD #2, Left TKA DVT proph- Xarelto/ ASA PT/ OT D/C planning- Home w OPPT today As per medicine. Subjective POD #2, Feeling well, denies sob, cp, n/v. Pain controlled well.resting comfortably in bed Physical Exam Vital Signs (Past 24 Hours): Last Vital Signs Temp 37.0 C 04/21/18 05:34 Pulse 65 04/21/18 05:34 Resp 16 04/21/18 05:34 BP 147/82 H 04/21/18 05:34 Pulse Ox 95 04/21/18 05:34 Toes mobile, NVI. Calves soft, non tender. Dressing in place. (1) History of total knee arthroplasty Laterality: left Qualified Code(s): Z96.652 - Presence of left artificial knee joint
--- NOTE | 2018-04-23 08:45 | Operative Report ---
Post Operative Report Pre & Post Diagnosis Operation Date: 04/19/18 09:25 Pre-Op Diagnosis: Right Knee Osteoarthritis Post-Op Diagnosis: Right Knee Osteoarthritis Procedure Operation Date: 04/19/18 09:25 Actual Procedures p Left Total Knee Arthroplasty(Left) - Fady Gómez MD Surgeon Fady Gómez MD Binder Caser Anand GOINS Estimated Blood Loss 5 I attest to the content of the Intraoperative Record and any orders documented therein. Any exceptions are noted below.
--- NOTE | 2018-04-23 08:45 | Discharge Summary ---
Date of Service May 08, 2018 Discharge Data Consultations 04/16/18 11:07 Consult Hospitalist Routine 04/19/18 12:13 Consult Case Management - Discharge Planning Routine Consult Hospitalist Routine Procedures Performed Operation Date: 04/19/18 09:25 Actual Procedures p Left Total Knee Arthroplasty(Left) - Fady Gómez MD
--- NOTE | 2018-04-29 09:06 | Operative Report ---
Post Operative Report Pre & Post Diagnosis Operation Date: 04/19/18 09:25 Pre-Op Diagnosis: Right Knee Osteoarthritis Post-Op Diagnosis: Right Knee Osteoarthritis Procedure Operation Date: 04/19/18 09:25 Actual Procedures p Left Total Knee Arthroplasty(Left) - Fady Gómez MD Surgeon Fady Gómez MD Machine Stacker Anand GOINS Estimated Blood Loss 5 Findings Consistent with Post-Op Diagnosis Specimens bone cuts Drains hemovac x2 Anesthesia Type Spinal MAC Complications none Disposition Accompanied Patient To Recovery: No Disposition: Recovery Room Indications 63 yo female with chronic oa of left knee ,bilateral oa grade 4 medial compartment ,varus knees and grade 4 patellofemoral djd oa on left. Description of Procedure see dictated addendum I attest to the content of the Intraoperative Record and any orders documented therein. Any exceptions are noted below.
--- NOTE | 2018-04-29 21:32 | Operative Report ---
DATE OF OPERATION: 04/19/2018 ADDENDUM DESCRIPTION OF PROCEDURE: The patient was taken to the operating room, anesthetized under spinal regional block anesthesia. A pneumatic tourniquet was placed on the left upper thigh and her left lower extremity was prepped and draped in sterile fashion using ChloraPrep. Knee exam demonstrated that she had a varus knee, she had patellofemoral crepitation and good range of motion. She had no particular instability. The left lower extremity was elevated and exsanguinated with an Esmarch bandage and the pneumatic tourniquet was raised. An anterior incision was made across the left knee. The skin was incised sharply. Subcutaneous flaps were elevated. An incision was made through the medial retinaculum, extended up into the mid third of the quadriceps tendon and extended down to the medial tibial tubercle. Intraarticular findings demonstrated grade 4 patellofemoral DJD, large patellofemoral osteophytes, grade 4 medial compartment osteoarthritis, bone on bone. She has tricompartmental DJD. I used the [employer] Persona total knee arthroplasty system using PSI preoperative templating. The exposure was performed by excising the meniscal remnants, cruciate ligament remnants. The infrapatellar fat pad was resected from the fat pad over the anterior femur for placement of the component that was resected. The lateral synovial bands were released. We did some medial releases to balance the ligaments. The femur was exposed. The custom femoral cutting block was placed in position. The guide pins were placed and then the distal femoral cutting guide was placed and our distal femoral cut was made. The 4-in-1 cutting block for the size 7 femoral component was placed. The anterior posterior and chamfer cuts were made. The knee was then extended, some large patellar osteophytes were resected. The patellar width was measured and the width was reproduced using a freehand cut technique and 35 x 9 symmetrical patella was the appropriate fit. Three drill holes were made for that and the excess lateral facet of patella was bevelled off to prevent any impingement. Then attention was taken back to the tibia. The tibia was subluxed and the custom tibial cutting block guide was placed. The guide pins were positioned and then the cutting guide was placed, alignment was verified, and the proximal tibial cut was made with the oscillating saw. Then we used lamina fountain worker to make sure all posterior osteophytes were resected. All meniscal remnants and cruciate ligament remnants were resected at this time, and we balanced the knee in extension and flexion using the sizing blocks and the 10 block fit well with balanced ligaments in extension and flexion. At this time then we re-exposed the tibia and the tibia was sized for an E tibial component. This component was externally rotated in line with the tibial tubercle, pinned in position and then the drill and punch were used for the stem. Then we went ahead and placed on the 7 trial CR left femur. The drill holes were made for the pegs and the femoral component and then we did a trial reduction with the medial congruent size 10 trial, which gave full range of motion, stability through full range of motion, and the patella tracked centrally. The trials were removed. The Orthomix was injected per protocol. Then the knee was copiously irrigated with pulsatile lavage antibiotic solution with bacitracin. Then the final components were cemented. Final components were the [employer] Persona standard size 7 CR left femur, the E tibia, the 10 mm medial congruent poly insert, and the 35 x 9 symmetrical patella. While the cement cured, the Betadine soak was used per protocol. When the cement cured, the knee was copiously irrigated again with pulsatile lavage antibiotic solution with bacitracin. The closure was performed with [id number] #1 Vicryl sutures in the medial retinaculum and the quadriceps tendon. The knee was taken through full range of motion and repair was secure. Subcutaneous tissues were closed with interrupted 2-0 Vicryl and skin was closed with rui and a Silverlon dressing applied. We did perform the closure over 2 Hemovac drains. The patient had minimal blood loss, less than 5 mL and had no complications and tolerated the procedure well. BUSTER Ramirez was my airplane first officer. He functioned as airplane first officer for the entire procedure. He assisted in patient positioning, prepping, draping, leg positioning, soft tissue retraction, instrument management, assisted in the closure and postoperative care of the patient. I attest to the content of the Intraoperative Record and any orders documented therein. Any exception s are noted below.
--- NOTE | 2018-05-06 21:42 | Discharge Summary ---
CHIEF COMPLAINT: Chronic left knee pain. HISTORY OF PRESENT ILLNESS: This is a 63-year-old female patient of Dr. Gómez's complaining of chronic left knee pain and instability. She was diagnosed with end-stage osteoarthritis per clinical and radiographic exams. She wished to proceed with a left total knee arthroplasty. PAST MEDICAL HISTORY: Polycythemia vera, osteoarthritis, acid reflux, obesity. POSTOPERATIVE COURSE: The patient underwent a left total knee arthroplasty on 04/19/2018. She was followed closely with medical consultation, physical therapy, pain control and DVT prophylaxis in the form of Xarelto. The patient did very well postoperatively and was discharged home on postoperative day #2. PHYSICAL EXAMINATION: Left knee Silverlon dressing was clean, dry and intact. There was no redness or drainage. She had no calf tenderness. Negative Homans sign. Neurologically and neurovascularly she is intact in her left lower extremity. DIAGNOSES: Status post left total knee arthroplasty with a history of polycythemia vera, osteoarthritis, osteoarthritis, acid reflux, obesity. PLAN: The patient was discharged home with outpatient physical therapy. She will continue her preadmission medications with the addition of DVT prophylaxis of Xarelto and the addition of pain medications. She will follow up with outpatient physical therapy and Dr. Gómez as scheduled as an outpatient.
== END 2018-04-21 11:47 | disposition home or self-care (01) | DRG 470 ==
LOC: ASU 06:53 → 3E 11:32

== ENCOUNTER 2019-02-27 11:08 | Inpatient (IN) ==
--- NOTE | 2019-01-24 13:59 | PAT Medication Instructions ---
Medication Instructions Date of Service January 24, 2019 Home Medications Medication Instructions Recorded prednisone 10 mg tablet 20 mg PO DAILY PRN #120 tab 10/10/18 ruxolitinib 10 mg tablet 10 mg PO QPM #90 tab 10/10/18 allopurinol 100 mg tablet 200 mg PO QAM #180 tab 10/19/18 fluoxetine 20 mg tablet 20 mg PO QAM #90 tab 12/19/18 aspirin [Aspirin Low Dose] 81 mg PO QPM acetaminophen 500 mg tablet 1,000 mg PO TID PRN prednisone 10 mg tablet 20 mg PO DAILY PRN ruxolitinib 10 mg tablet 10 mg PO QPM allopurinol 100 mg tablet 200 mg PO QAM fluoxetine 20 mg tablet 20 mg PO QAM amlodipine [Norvasc] 2.5 mg PO HS meloxicam 15 mg PO QPM omeprazole 20 mg PO QAM triamterene-hydrochlorothiazid 0.5 tab PO QAM ASK your surgeon for instructions meloxicam 15 mg PO QPM ASK your prescriber and surgeon ruxolitinib 10 mg tablet 10 mg PO QPM DO NOT take the morning of surgery triamterene-hydrochlorothiazid 0.5 tab PO QAM Take morning of surgery With a small sip of water, OTHERWISE NOTHING TO EAT OR DRINK AFTER MIDNIGHT: acetaminophen 500 mg tablet 1,000 mg PO TID PRN (if needed, may be taken up to four hours before surgery) prednisone 10 mg tablet 20 mg PO DAILY PRN (if needed) allopurinol 100 mg tablet 200 mg PO QAM fluoxetine 20 mg tablet 20 mg PO QAM omeprazole 20 mg PO QAM Take evening before surgery aspirin [Aspirin Low Dose] 81 mg PO QPM acetaminophen 500 mg tablet 1,000 mg PO TID PRN (if needed) prednisone 10 mg tablet 20 mg PO DAILY PRN (if needed) amlodipine [Norvasc] 2.5 mg PO HS Other Notes If you have any questions please call us at [phone] or [phone] or [phone] or [phone]
--- NOTE | 2019-01-25 11:33 | Anesthesiology Consultation ---
Date of Service January 25, 2019 Assessment & Plan (1) Encounter for pre-operative examination: FYI: Pt reports she has had the roof of her mouth scraped severely with previous intubations and is concerned about this happening again. H/O PONV. Scopolamine patch AM DOS. Chart Review Chart Review: Acceptable Risk for Surgery (pending surgeon ordered pcp clearance 02/11) and Patient seen in Pre Admission Testing Teaching & Discussion Instructed NPO after midnight before surgery, except medications with 15 cc of water. Medication instructions provided according to the PAT guidelines. History Surgery Operation Date: 02/27/19 07:00 Proposed Procedures p Right Shoulder Total Arthroplasty versus Reverse Shoulder Arthroplasty - Fady Gómez MD Height/Weight Height: 5 ft 5 in Weight: 92.9 kg Allergies Allergy/AdvReac Type Severity Reaction Status Date / Time codeine AdvReac Mild NAUSEA/VOMI Verified 01/21/19 09:10 TING SEASONAL Allergy Unknown sneezing, Uncoded 01/21/19 09:10 eyes irritated, runny nose Medications Home Medications Medication Instructions Recorded Confirmed Last Taken aspirin [Aspirin Low Dose] 81 mg PO QPM 03/07/18 01/21/19 04/18/18 21:00 acetaminophen 500 mg tablet 1,000 mg PO TID PRN tab 10/10/18 01/21/19 Unknown prednisone 10 mg tablet 20 mg PO DAILY PRN #120 tab 10/10/18 01/21/19 Unknown ruxolitinib 10 mg tablet 10 mg PO QPM #90 tab 10/10/18 01/21/19 Unknown allopurinol 100 mg tablet 200 mg PO QAM #180 tab 10/19/18 01/21/19 Unknown fluoxetine 20 mg tablet 20 mg PO QAM #90 tab 12/19/18 01/21/19 Unknown amlodipine [Norvasc] 2.5 mg PO HS 01/21/19 01/21/19 Unknown meloxicam 15 mg PO QPM 01/21/19 01/21/19 Unknown omeprazole 20 mg PO QAM 01/21/19 01/21/19 Unknown triamterene-hydrochlorothiazid 0.5 tab PO QAM 01/21/19 01/21/19 Unknown Past Medical History Medical History Anxiety Elevated alkaline phosphatase level Fibromyalgia GERD (gastroesophageal reflux disease) Gout Hypertension Numbness and tingling in both hands r/t polycythemia Osteoarthritis Polycythemia vera (Chronic) On Jakafi, follows with [facility] hematology (Dr Fox) Prediabetes pt denies Seasonal allergies Exercise / Class Metabolic Activity III < 4 Walking/Shop/Light housework (+mild SOB with 1 FOS 2/2 polycythemia, no CP) Past Family History Family History Father FHx: lung cancer exposure to asbestos and hx of a smoker Other Family history non-contributory Past Surgical History Surgical History History of x3 History of colonoscopy History of dilatation and curettage History of esophagogastroduodenoscopy (EGD) History of tonsillectomy History of total knee replacement Left Hx of arthroscopy of right knee Hx of bariatric surgery x2 - Lap bands insertion and removal Nausea and vomiting after administration of anesthetic agent S/P RADHA (total abdominal hysterectomy) Past Anesthesia History No Hx of Anesthesia Complications (except for PONV) and No Family Hx of Anesthesia Complications History of PONV History of PONV and Hx of Motion Sickness Social History Smoking Status: Never smoker Do You Dip or Chew Tobacco: No Hx Alcohol Use: Yes Alcohol type: wine alcohol intake frequency: a few times a month Hx Substance Use: No substance use type: does not use Review of Systems Pt denies any recent chest pain, shortness of breath above baseline, palpitations, cough, fever or URI. Physical Exam Vital Signs BP: 134/86 P: 66bpm SPO2: 96% RA T: 98.3 F R: 16 ENMT Mouth: no chipped teeth and no loose teeth Thyromental Distance: > or= 3.5 Finger Breadths (3.5) Mallampati Class: IV painful bottom L tooth, on ABX currently, may be removed prior to surgery. Pt advised to make surgeon aware. Small rounded smooth protruberance on roof of mouth. Neck + short neck; neck extension not limited Respiratory normal respiratory effort Auscultation: lungs clear to auscultation bilaterally Cardiovascular Rate/Rhythm: regular rate and regular rhythm Heart Sounds: no murmur Testing Laboratory Results 01/25/19 10:58 01/25/19 10:58 PT 11.6 Seconds (9.0-12.0) 01/25/19 10:58 INR 1.1 (0.9-1.1) 01/25/19 10:58 APTT 24.2 Seconds (21.0-31.0) 01/25/19 10:58 Hemoglobin A1c 5.9 % (4.5-5.6) H 01/25/19 10:58 Urine Color Dark Yellow 01/25/19 Unknown Urine Appearance Clear (Clear) 01/25/19 Unknown Urine pH 5.0 (4.5-7.5) 01/25/19 Unknown Ur Specific [place] 1.030 (1.000-1.030) 01/25/19 Unknown Urine Protein Negative (Negative) 01/25/19 Unknown Urine Glucose (UA) Negative (Negative) 01/25/19 Unknown Urine Ketones Negative (Negative) 01/25/19 Unknown Urine Nitrite Negative (Negative) 01/25/19 Unknown Ur Leukocyte Esterase Negative (Negative) 01/25/19 Unknown Blood Type O Negative 01/25/19 10:58 Antibody Screen NEGATIVE 01/25/19 10:58 *CBC consistent with known polycythemia vera Electrocardiogram Date: 03/09/18 Findings: + NSR @ (64) Nonspecific ST and T wave abnormality. Compared with EKG of 08/12/2016, T wave inversion is now evident in anterior leads. *see stress echo below Chest X-Ray Date: 03/09/18 Findings: + NAD Stress Test Date: 12/04/18 Negative stress echo for ischemia at 84% MPHR. Appropriate blood pressure response to exercise. No arrhythmia. Study terminated due to dyspnea. No chest pain reported. Below average exercise tolerance. Rest echo: Normal LV size and systolic function with EF 55 to 60%. No regional wall motion abnormalities. Mild concentric LVH. Mild left atrial dilation. No significant valvular abnormalities.
[2019-01-25 13:31] LABS: Basophils # (auto) 0.05 K/uL (0-0.2); Basophils % (auto) 0.4 %; Eosinophils # (auto) 0.34 K/uL (0-0.5); Eosinophils % (auto) 2.5 %; Hematocrit (blood only) 44.3 % (37-47); Hemoglobin 13.4 g/dL (12.0-16.0); Immature Granulocytes # (auto) 0.04 K/uL (0.00-0.02); Immature Granulocytes % (auto) 0.3 %; Lymphocytes # (auto) 2.65 K/uL (1.2-3.4); Lymphocytes % (auto) 19.5 %; Mean Corpuscular Hemoglobin 24.7 pg (25-34); Mean Corpuscular Hgb Conc 30.2 g/dL (32-36); Mean Corpuscular Volume 81.6 fL (80-100); Mean Platelet Volume 11.1 fL (7.4-10.4); Monocytes # (auto) 0.98 K/uL (0.11-0.59); Monocytes % (auto) 7.2 %; Neutrophils # (auto) 9.55 K/uL (1.4-6.5); Neutrophils % (auto) 70.1 %; Platelet Count 777 K/uL (130-400); RDW Coefficient of Variation 16.6 % (11.5-14.5); RDW Standard Deviation 49.1 fL (36.4-46.3); Red Blood Count 5.43 M/uL (4.2-5.4); White Blood Count 13.61 K/uL (4.8-10.8)
[2019-01-25 13:32] LABS: Appearance Urine Clear (Clear); Bilirubin Urine Negative (Negative); Blood Urine Negative (Negative); Color Urine Dark Yellow; Glucose Urine UA Negative (Negative); Ketones Urine Negative (Negative); Leukocyte Esterase Urine Negative (Negative); Nitrite Urine Negative (Negative); Protein Urine Negative (Negative); Urobilinogen Urine Negative (Negative)
[2019-01-25 13:45] LABS: INR 1.1 (0.9-1.1); Partial Thromboplastin Ratio 0.9; Partial Thromboplastin Time 24.2 Seconds (21.0-31.0); Prothrombin Time 11.6 Seconds (9.0-12.0)
[2019-01-25 13:53] LABS: Albumin Level 3.8 gm/dl (3.4-5.0); BUN Creatinine Ratio 26.5 (10-20); Calcium 8.6 mg/dl (8.5-10.1); Creatinine Clr Calc Pharmacy 57.4 ml/min; Est GFR (Non-African American) 52.6; Potassium 3.7 mmol/L (3.5-5.1)
[2019-01-25 14:01] LABS: Estimated Average Glucose 123 mg/dl; Hemoglobin A1C 5.9 % (4.5-5.6)
--- NOTE | 2019-02-26 18:56 | History and Physical Report ---
DATE OF ADMISSION: 02/27/2019 CHIEF COMPLAINT: Chronic right shoulder pain. HISTORY OF PRESENT ILLNESS: This is a 63-year-old female patient of Dr. Gómez'la complaining of chronic right shoulder pain, longstanding, now progressively getting worse. The patient has been diagnosed with end-stage osteoarthritis per clinical and radiographic exams. The patient has failed conservative treatment and has elected to proceed with a right total shoulder arthroplasty reversed. PAST MEDICAL HISTORY: Hypertension, irregular heartbeat, anxiety, polycythemia vera, osteoarthritis, acid reflux, obesity. SOCIAL HISTORY: Nonsmoker, nondrinker. She has a history of cancer, polycythemia vera. PAST SURGICAL HISTORY: 1. Multiple C-sections. 2. Hysterectomy. 3. Knee replacement. FAMILY HISTORY: Noncontributory. REVIEW OF SYSTEMS: Chronic right shoulder pain and weakness. Otherwise, denies any shortness of breath, chest pain, nausea, vomiting or any other joint complaints. MEDICATIONS: 1. Triamterene 37.5 mg 1/2 tablet daily. 2. Loratadine 10 mg daily. 3. Omeprazole 20 mg daily. 4. Fluoxetine 20 mg daily. 5. Jakafi 10 mg 1 tablet twice daily. 6. Amlodipine daily. 7. Allopurinol 2 tablets daily. ALLERGIES: CODEINE. PHYSICAL EXAMINATION: GENERAL: Well-developed, well-nourished 63-year-old female in no acute distress. She is alert and oriented x3 and pleasant. HEENT: Normocephalic, atraumatic. Extraocular motions are intact. Pupils equal, reactive to light. HEART: Regular irregular heartbeat consistent with A fib. LUNGS: Clear. ABDOMEN: Soft and nontender. Bowel sounds present. EXTREMITIES: Right shoulder reveals a limited range of motion of 0-90 actively, passively 0-140. Positive crepitation. Neurologically and neurovascularly she is intact in her right upper extremity. DIAGNOSES: Right shoulder end-stage osteoarthritis, hypertension, irregular heartbeat, anxiety, polycythemia vera, osteoarthritis, acid reflux, obesity. PLAN: The patient was advised of her diagnosis. Indications, risks, benefits, postop course have all been reviewed. The patient wished to proceed with a right total shoulder reversed arthroplasty. Necessary consent forms, preoperative testing and clearances will be obtained.
[~2019-02-27 11:08] MED LIST changes: -BUPIVACAINE 0.5 % 5 MG/1 ML PF 10ML VIAL ONE; -BUPIVACAINE/EPINEPHRINE 0.5% MPF 1:200,000 30 ML VIAL ONE; -DEXAMETHASONE SOD INJ 4 MG/ML VIAL ONE; +EPINEPHrine INJ 1 MG/ML AMP ONE; -GABAPENTIN 300 MG x 2 PO SCH; +LR 15ML/HR IV SCH; -LR 500ML BOLUS, THEN 15ML/HR IV SCH; +ROPIVACAINE 0.5% 5 MG/ML 30 ML VIAL ONE; -ROPIVACAINE 0.5% HCL/PF 150 MG, BUPIVACAINE 0.5% MPF 30 ML, EPINEPHrine 30MG/30ML (OR U... INFIL SCH; +SCOPOLAMINE 1.5 MG TDSY TD SCH; +cloNIDine HCL 100 MCG/ML SYR ONE
[2019-02-27] MEDS ORDERED: HYDROmorphone INJ 1 MG/ML SYRINGE IV PRN (13:25)
[2019-02-27] MEDS ORDERED: LABETALOL HCL IV 5 MG/ML 20ML IV PRN (13:25)
[2019-02-27] MEDS ORDERED: ATROPINE SULFATE 0.1 MG/ML 10ML SYR IV PRN (13:25)
[2019-02-27] MEDS ORDERED: PHENYLEPHRINE 100MCG/ML 5ML SYR IV PRN (13:25)
[2019-02-27] MEDS ORDERED: fentaNYL citrate 100 MCG/2 ML VIAL IV PRN (13:25)
[2019-02-27] MEDS ORDERED: ONDANSETRON INJ 2 MG/ML 2 ML VIAL IV PRN (13:25)
[2019-02-27] MEDS ORDERED: ePHEDrine sulfate 50 MG/ML AMP IV PRN (13:25)
[2019-02-27] MEDS ORDERED: MEPERIDINE HCL 25 MG/ML CARP IV PRN (13:25)
[2019-02-27] MEDS ORDERED: BACITRACIN INJ 50,000 UNIT VIAL ONE (15:04)
[2019-02-27] MEDS ORDERED: EpINEphrine HCL INJ 1 MG/ML 1ML SYRINGE ONE (15:06)
[2019-02-27] MEDS ORDERED: ONDANSETRON INJ 2 MG/ML 2 ML VIAL ONE ×2 (16:01→20:02)
[2019-02-27] MEDS ORDERED: MIDAZOLAM HCL 1 MG/ML 2ML VIAL ONE (16:01)
[2019-02-27] MEDS ORDERED: LIDOCAINE HCL 2% 2 ML VIAL/AMP(20MG/ML) INFIL ONE (16:01)
[2019-02-27] MEDS ORDERED: PROPOFOL IV EMULSION 10 MG/ML 20 ML VIAL IV ONE (16:01)
[2019-02-27] MEDS ORDERED: fentaNYL citrate 100 MCG/2 ML VIAL ONE ×2 (16:01→17:43)
[2019-02-27] MEDS ORDERED: ROCURONIUM BROMIDE 10 MG/ML 5 ML VIAL ONE ×3 (16:01→19:32)
--- NOTE | 2019-02-27 16:44 | History & Physical Bridge Note ---
Date of Service February 27, 2019 History & Physical Bridge Note I have examined the patient, reviewed the History & Physical and in the interval since the performance of the History & Physical I have noted the following changes of clinical significance: no changes noted
[2019-02-27] MEDS ORDERED: PHENYLEPHRINE 100MCG/ML 5ML SYR ONE (17:48)
[2019-02-27] MEDS ORDERED: DEXAMETHASONE SOD INJ 4 MG/ML VIAL ONE (19:24)
[2019-02-27] MEDS ORDERED: GLYCOPYRROLATE 0.2 MG/ML VIAL ONE (19:32)
[2019-02-27] MEDS ORDERED: NEOSTIGMINE METHYLSULFATE 5 MG/5 ML SYR ONE (19:32)
--- NOTE | 2019-02-27 20:13 | Post Operative Brief Note ---
Immediate Post Op Note v1 Date of Surgery February 27, 2019 Pre & Post Diagnosis Operation Date: 02/27/19 13:40 Pre-Op Diagnosis: Advanced Right Shoulder Glenohumeral Osteoarthritis with Bone Loss Glenoid Post-Op Diagnosis: Advanced Right Shoulder Glenohumeral Osteoarthritis with Bone Loss Glenoid, Biceps Tendonopathy I identified the patient and participated in the time-out.: Yes Procedure Operation Date: 02/27/19 13:40 Actual Procedures p Right Reverse Total Shoulder Arthroplasty Using Bio RSA Humeral Head Autograft of Glenoid, Biceps Tenodesis(Right) - Fady Gómez MD Surgeon Fady Gómez MD Global Manager BUSTER Ramirez Estimated Blood Loss 30 Findings Consistent with Post-Op Diagnosis Specimens Humeral head fragments Drains Hemovac Drain Anesthesia Type General Regional Complications none Disposition Accompanied Patient To Recovery: No Disposition: Recovery Room Overlapping Procedure I was immediately available: during the entire case.
--- NOTE | 2019-02-27 20:36 | Operative Report ---
Post Operative Report Pre & Post Diagnosis Operation Date: 02/27/19 13:40 Pre-Op Diagnosis: Advanced Right Shoulder Glenohumeral Osteoarthritis with Bone Loss Glenoid Post-Op Diagnosis: Advanced Right Shoulder Glenohumeral Osteoarthritis with Bone Loss Glenoid, Biceps Tendonopathy I identified the patient and participated in the time-out.: Yes Procedure Operation Date: 02/27/19 13:40 Actual Procedures p Right Reverse Total Shoulder Arthroplasty Using Bio RSA Humeral Head Autograft of Glenoid, Biceps Tenodesis(Right) - Fady Gómez MD Surgeon Fady Gómez MD Emt P BUSTER Ramirez Estimated Blood Loss 30 Findings Consistent with Post-Op Diagnosis Specimens Humeral head fragment Drains 2 Hemovac Anesthesia Type General Regional Complications none Disposition Accompanied Patient To Recovery: No Disposition: Recovery Room Indications 63-year-old female with severe osteoarthritis of the right shoulder. She has had progressive bone loss over the years and has a type C glenoid with marked retroversion and glenoid bone loss. Patient has very limited range of motion and function at this time with chronic pain. Description of Procedure The patient was taken to the operating room and anesthetized under regional block and general anesthetic. The patient was positioned on the operating table in a 30 beachchair position with a towel roll under the medial border of the right scapula. The arm was draped free to be able to manipulate the shoulder as needed. The right upper extremity was prepped and draped in usual sterile fashion. Exam demonstrated 0 degrees external rotation 70 degrees abduction 80 degrees forward elevation [id number] crepitation. An anterior deltopectoral approach was performed. A longitudinal incision was made in the deltopectoral interval. The skin was incised sharply. Subcutaneous flaps were elevated off the fascia. The cephalic vein was dissected out and retracted lateral with the deltoid. The clavipectoral fascia was divided at the lateral margin of the conjoined tendon and extended up to the CA ligament. The following findings were noted the rotator cuff was intact the patient did not have a well-defined circumflex vessel vascular bundle. There was chronic tenosynovitis of the biceps there was chronic bursitis of the rotator cuff.. The upper centimeter of the pectoralis was released for inferior exposure. The biceps tendon findings demonstrated intact fairly thin tendon with some chronic tenosynovitis about the tendon. the biceps tendon was tenodesed to the pectoralis tendon with #2 FiberWire. The proximal biceps was resected. The subscapularis tendon was taken down off the lesser tuberosity using a subperiosteal dissection. A #1 Vicryl traction suture was placed into the free end of the subscapularis tendon and capsule. The subscapular muscle fibers were split longitudinal at the usual level of the circumflex vessels leaving a cuff of muscle inferiorly to protect the axillary nerve. Some smaller circumflex vessels were tied off laterally and cauterized. A Kitner elevator was used to free up the inferior fibers of the subscapularis off of the capsule. The axillary nerve was identified with a tug test and protected with a blunt Souleymane retractor between the nerve and the capsule. The subscapularis tendon was then taken down off of the lesser tuberosity subperiosteally and subperiosteal dissection was performed along the neck of the humerus as the arm is gradually actually rotated exposing the humeral head. Retractors were readjusted and the large inferior osteophytes were all resected using an artist chisel. A Witt elevator was used to assist in releasing the capsule of the neck of the humerus. The capsule was divided with Finney scissors down to the glenoid released off the anterior glenoid and the rotator interval was released to meet the capsular release and a 360 release of the subscapularis was accomplished. A Fukuda retractor was placed into the joint retracting the humeral head posterior. Glenoid findings demonstrated a markedly posterior slope glenoid with a type C glenoid with significant bone loss and medialization of the joint. The labrum and biceps tendon was resected. an anterior-inferior and posterior inferior capsular release were performed with electrocautery and a Witt elevator on bone with the axillary nerve protected inferiorly by the retractor. Attention was then taken to the humeral preparation. The cutting guide was placed into the humeral head. It was positioned at 20 of retroversion. The guidepin for the bio RSA bone grafting device was pinned in position at 20 degrees of retroversion. The humeral head was first reamed flat with a 29 mm reamer followed by positioning the cutting guide in position and making a 15 degree wedge cut harvesting about a centimeter wide bone graft at the thickest part of the wedge. Oscillating saw was used. The resect resection of the the humeral head was such that the cut was above the level of the posterior rotator cuff insertion site. The humerus was then prepared for the stem. I used the ascend flex stem from [employer]. The sizing broaches were used followed by trial broaches up to a size 3B long which had appropriate fit and fill.. The angle of the cut had to be revised with the oscillating saw off the top of the broach due to the sloped cut for the bone graft. The appropriate sized cut protector was placed. The humerus was then retracted posterior to the glenoid. The glenoid was sized for a 25 baseplate. The custom guide which was made with [employer] preoperative PSI CT scanning was positioned and it fit well and the guidepin was placed. bicortical fixation was obtained. The reamer for the 25 baseplate was used. This was used to make a flat reaming in line with the guidepin to ream down some of the anterior glenoid to change the version to the appropriate version based on the CT-guided templating. After medializing the reaming it was noted that there was such a large posterior slope that a dilia-wedge would not work and that the best configuration would be a 15 degree full wedge with a secondary wedge of bone graft medial to that to accommodate the large bone deficit posteriorly. I fashioned a wedged shaped graft. I curetted the surface that was unreamed posteriorly to the 15 degree full wedge reaming. This was pinned in provisionally with threaded K wires and then the reamer was taken down on top of the graft to we had a flush surface at [address] the wedge onto. The bio RSA wedge with a central hole was then passed over the central pin held in position compressed against the graft that was medial to it and then the guidepin was removed and the central drill was used the depth gauge was used to measure for the central screw. The 39 mm standard baseplate was screwed into position with the 6.5 x 45 mm central screw with excellent purchase and compression. This locked in both bone grafts well.. The base plate was transfixed with superior and inferior locking screws and anterior and posterior compression screws with stable fixation. A 46 mm 38 mm and 34 mm peripheral screw were used all getting excellent purchase. The fan reamer was not necessary due to the lateralization. Some osteophytes were resected around the remaining glenoid superiorly. After irrigation the 39 standard glenoid sphere was impacted onto the baseplate and the screw was tightened. Attention was taken back to the humerus. The cut protector was removed and the plus or high offset humeral tray trial was assembled to the trial stem rotated appropriately to get bony coverage and then screwed in position. A trial reduction was performed. 39+6 trial insert demonstrated good stability and no shuck. The trials were removed. 3 drill holes are made into the harder bone in the bicipital groove area and 3 #5 FiberWire sutures were placed transosseously. The canal was irrigated with antibiotic solution with bacitracin. The final component was assembled. The final component was 3B long ascend flex stem assembled to +0 high offset reversed tray with eccentric offset set at superior position with 39 mm +6 reversed insert polyethylene. This was then impacted into the humerus with a tight press-fit. It was reduced to the glenoid sphere. Stability was verified. Subscapularis was repaired with the #5 FiberWire sutures using Jimi-Eugene suture technique. Due to the contracture we just brought the tendon to the edge of the neck of the humeral bone. No lateral row fixation was performed. The pectoralis was repaired with #2 FiberWire [id number] sutures reinforcing the biceps tendon tenodesis. The arm was taken through a range of motion which demonstrated 15 degrees of external rotation with the arm at 45 degrees abduction abduction to 110 degrees and forward elevation to 150 degrees with stable range of motion and no shuck. The implant was stable through the range of motion tested. The wound was copiously irrigated. 2 Hemovac drains were placed. The deltopectoral interval was closed with [id number] #1 Vicryl sutures. The subcutaneous tissues were closed with 2-0 Vicryl sutures. The skin was closed with rui. Sterile dressings were applied and a shoulder immobilizer. BUSTER Ramirez my physician personal care assistant assisted in the procedure to the entire procedure including patient positioning arm positioning prepping and draping soft tissue retraction instrument management suture management and performed the subcutaneous and skin closure and will participate in the postoperative care of the patient. I attest to the content of the Intraoperative Record and any orders documented therein. Any exceptions are noted below.
[2019-02-27] MEDS ORDERED: NALOXONE HCL 0.4 MG/1 ML VIAL/CARP IV PRN (21:16)
[2019-02-27] MEDS ORDERED: SODIUM CHLORIDE 0.9% 1000ML 1,000 ML IV SCH (21:16)
[2019-02-27] MEDS ORDERED: bisacodyL 10 MG SUPP PR PRN (21:16)
[2019-02-27] MEDS ORDERED: predniSONE 20 MG TAB PO PRN (21:16)
[2019-02-27] MEDS ORDERED: MAGNESIUM HYDROXIDE SUSP 30 ML UDC PO PRN (21:16)
[2019-02-27] MEDS: CHECK SCOPOLAMINE PATCH PLACEMENT SCH (21:18)
[2019-02-27] MEDS ORDERED: PHARMACY GLYCEMIC MGMT CONSULT PRN (21:51)
[2019-02-27] MEDS: INSULIN ASPART 100 UNITS/ML 3 ML PEN SC SCH (21:57)
[2019-02-27] MEDS ORDERED: CARBOHYDRATES FOR HYPOGLYCEMIA PO PRN (22:00)
[2019-02-27] MEDS ORDERED: GLUCOSE 10 TABS/TUBE PO PRN (22:00)
[2019-02-27] MEDS ORDERED: GLUCOSE 40% GEL 15 GM TUBE PO PRN (22:00)
[2019-02-27] MEDS ORDERED: DEXTROSE 50% 50 ML SYRINGE IV PRN (22:00)
[2019-02-27] MEDS: SENNA 8.6 MG TAB PO SCH (22:00)
[2019-02-27] MEDS ORDERED: GLUCAGON FOR INJ 1 MG VIAL SQ PRN (22:00)
[2019-02-27] MEDS: AMLODIPINE BESYLATE 5 MG TAB PO SCH (22:01)
[2019-02-27] MEDS: DOCUSATE SODIUM 100 MG CAP PO SCH (22:01)
[2019-02-27] MEDS: ASPIRIN 81 MG ECTAB PO SCH (22:01)
--- NOTE | 2019-02-27 22:25 | XRay Report ---
XR shoulder RT min 2V routine CLINICAL HISTORY: 63 years-old Female presenting with Post shoulder surgery. TECHNIQUE: Internal rotation and transscapular Y views of the right shoulder were obtained. COMPARISON: None. FINDINGS: Postsurgical changes of reverse total right shoulder arthroplasty. No periprosthetic fracture or luce ncy. No malalignment. Acromioclavicular joint congruent. Soft tissue emphysema noted. Surgical drain in place. Overlying skin rui. Bandlike opacities at the right lung base in the setting of low stephanie g volume. IMPRESSION: 1. Expected postsurgical appearance status post reversed total right shoulder arthroplasty. 2. Right basilar atelectasis. ACT 112: Negative or not required by law. Electronically signed by: Alcides Solorzano M.D. 02/27/2019 10:24 PM
--- NOTE | 2019-02-27 22:44 | Anesthesiology Progress Note ---
Date of Service February 27, 2019 Anesthesia Post Procedure Vital Signs Vital Signs: Temp Pulse Pulse Pulse Resp BP BP 02/27/19 22:06 36.5 C 83 14 131/86 02/27/19 21:41 36.4 C L 71 15 137/86 02/27/19 21:16 36.8 C 78 16 146/88 H 02/27/19 20:55 36.6 C 71 14 143/79 H 02/27/19 20:45 82 15 124/85 02/27/19 20:35 73 16 128/78 02/27/19 20:25 85 16 154/88 H 02/27/19 20:18 36.7 C 89 18 150/81 H 02/27/19 11:42 36.9 C 72 20 139/86 Pulse Ox 02/27/19 22:06 93 02/27/19 21:41 93 02/27/19 21:16 94 02/27/19 20:55 93 02/27/19 20:45 93 02/27/19 20:35 94 02/27/19 20:25 96 02/27/19 20:18 95 02/27/19 11:42 93 Transfer of Care Handoff Completed per policy Notes Mental Status: alert / awake / arousable Patient Amnestic to Procedure: Yes Nausea / Vomiting: adequately controlled Pain: adequately controlled Airway Patency, RR, SpO2: stable & adequate BP & HR: stable & adequate Hydration State: stable & adequate Anesthetic Complications: no major complications apparent and Pt Satisfied with anesthetic care
[2019-02-27] MEDS: CEFAZOLIN 2000MG 2,000 MG/15 ML SYR IV SCH (23:59)
[2019-02-28] MEDS: CHECK SCOPOLAMINE PATCH PLACEMENT SCH
[2019-02-28] MEDS ORDERED: INSULIN ASPART 100 UNITS/ML 3 ML PEN SC SCH (04:00)
[2019-02-28] MEDS: OXYCODONE HCL IR 5 MG TAB (IMMEDIATE RELEASE) PO PRN ×6 (04:02→23:47)
[2019-02-28 05:55] LABS: Basophils # (auto) 0.01 K/uL (0-0.2); Hematocrit (blood only) 40.2 % (37-47); Hemoglobin 12.2 g/dL (12.0-16.0); Immature Granulocytes # (auto) 0.06 K/uL (0.00-0.02); Immature Granulocytes % (auto) 0.3 %; Lymphocytes % (auto) 3.4 %; Mean Corpuscular Hemoglobin 25.5 pg (25-34); Mean Corpuscular Hgb Conc 30.3 g/dL (32-36); Mean Corpuscular Volume 84.1 fL (80-100); Mean Platelet Volume 11.3 fL (7.4-10.4); Monocytes # (auto) 0.72 K/uL (0.11-0.59); Monocytes % (auto) 3.5 %; Neutrophils # (auto) 18.99 K/uL (1.4-6.5); Neutrophils % (auto) 92.8 %; Platelet Count 604 K/uL (130-400); RDW Coefficient of Variation 18.3 % (11.5-14.5); RDW Standard Deviation 55.4 fL (36.4-46.3); Red Blood Count 4.78 M/uL (4.2-5.4); White Blood Count 20.48 K/uL (4.8-10.8)
[2019-02-28 06:30] LABS: BUN Creatinine Ratio 23.6 (10-20); Calcium 8.3 mg/dl (8.5-10.1); Creatinine Clr Calc Pharmacy 64.2 ml/min; Est GFR (African American) 71.9; Est GFR (Non-African American) 62.1; Potassium 3.9 mmol/L (3.5-5.1)
--- NOTE | 2019-02-28 08:26 | Orthopedic Progress Note ---
Date of Service February 28, 2019 Assessment & Plan (1) Rotator cuff arthropathy: POD #1, Right Reversed TSA with humeral head bone graft Limited PT/ OT, No formal PT needed at D/C. DVT proph- ASA, will start Eliquis tonight due to polycythemia vera D/C plans- Home w HEP As per medicine. Subjective POD #1 Feeling well. Denies SOB, CP, N/V. Pain controlled well. Physical Exam Physical Exam: Right shoulder dressings c/d/i, drainin tact. Fingers mobile. Sling in tact. A&Ox3. Results & Data Vital Signs (Past 12 Hours) Vital Signs Temp Pulse Pulse Resp BP Pulse Ox 02/28/19 07:00 36.8 C 88 16 115/77 91 02/28/19 03:48 36.6 C 94 H 15 114/75 92 02/27/19 23:52 36.6 C 90 20 139/87 95 02/27/19 23:09 36.5 C 91 H 15 133/84 95 02/27/19 22:06 36.5 C 83 14 131/86 93 02/27/19 21:41 36.4 C L 71 15 137/86 93 02/27/19 21:16 36.8 C 78 16 146/88 H 94 02/27/19 20:55 36.6 C 71 14 143/79 H 93 02/27/19 20:45 82 15 124/85 93 02/27/19 20:35 73 16 128/78 94
--- NOTE | 2019-02-28 08:26 | Anesthesiology Progress Note ---
Date of Service February 28, 2019 Anesthesia Post Procedure Vital Signs Vital Signs: Temp Pulse Pulse Pulse Resp BP BP 02/28/19 07:00 36.8 C 88 16 115/77 02/28/19 03:48 36.6 C 94 H 15 114/75 02/27/19 23:52 36.6 C 90 20 139/87 02/27/19 23:09 36.5 C 91 H 15 133/84 02/27/19 22:06 36.5 C 83 14 131/86 02/27/19 21:41 36.4 C L 71 15 137/86 02/27/19 21:16 36.8 C 78 16 146/88 H 02/27/19 20:55 36.6 C 71 14 143/79 H 02/27/19 20:45 82 15 124/85 02/27/19 20:35 73 16 128/78 02/27/19 20:25 85 16 154/88 H 02/27/19 20:18 36.7 C 89 18 150/81 H 02/27/19 11:42 36.9 C 72 20 139/86 Pulse Ox 02/28/19 07:00 91 02/28/19 03:48 92 02/27/19 23:52 95 02/27/19 23:09 95 02/27/19 22:06 93 02/27/19 21:41 93 02/27/19 21:16 94 02/27/19 20:55 93 02/27/19 20:45 93 02/27/19 20:35 94 02/27/19 20:25 96 02/27/19 20:18 95 02/27/19 11:42 93 Pain Intensity Right Hand: Pain Intensity: 4 Notes Mental Status: alert / awake / arousable Patient Amnestic to Procedure: Yes Nausea / Vomiting: adequately controlled Pain: adequately controlled Airway Patency, RR, SpO2: stable & adequate BP & HR: stable & adequate Hydration State: stable & adequate Neuraxial Anesthesia: sensory block resolved Anesthetic Complications: no major complications apparent
[2019-02-28] MEDS: ACETAMINOPHEN 500 MG TAB PO SCH ×4 (09:08→23:48)
[2019-02-28] MEDS: CEFAZOLIN 2000MG 2,000 MG/15 ML SYR IV SCH (09:08)
[2019-02-28] MEDS: MULTIVITAMIN TAB PO SCH (09:09)
[2019-02-28] MEDS: TRIAMTERENE/HCTZ 37.5/25MG TAB PO SCH (09:09)
[2019-02-28] MEDS: DOCUSATE SODIUM 100 MG CAP PO SCH ×2 (09:09→20:42)
[2019-02-28] MEDS: PANTOprazole 40 MG TAB PO SCH (09:10)
[2019-02-28] MEDS: allopurinoL 100 MG TAB PO SCH (09:10)
[2019-02-28] MEDS: FLUOXETINE HCL 20 MG CAP PO SCH (09:10)
[2019-02-28] MEDS: INSULIN ASPART 100 UNITS/ML 3 ML PEN SC SCH ×4 (09:11→22:17)
[2019-02-28] MEDS: HYDROmorphone INJ 0.5 MG/0.5 ML SYR IV PRN ×3 (11:41→20:40)
--- NOTE | 2019-02-28 16:06 | Pharmacy Report ---
Glycemic Control Consultation - Date of Service February 28, 2019 - Scope Scope: Glycemic Pharmacist consulted by Anand Katz PA-C on 02/27 for glycemic control and to write orders per [facility] inpatient glycemic control protocol - Objective Weight: 91.898 kg Accuchecks BSG (last 24hrs): 02/27/19 02/28/19 02/28/19 21:55 03:49 05:29 Glucose 132 H POC Glucose 173 H 144 H 02/28/19 02/28/19 08:22 12:28 Glucose POC Glucose 121 H 102 H Laboratory Data (last 24hrs): 02/28/19 05:29 Potassium 3.9 Carbon Dioxide 25 Anion Gap 8.0 Creatinine 0.96 Est Cr Clr Drug Dosing 64.2 HbA1c: Hemoglobin A1c 5.9 % (4.5-5.6) H 01/25/19 10:58 - Recent Pertinent Medications Outpatient Anti-diabetic Regimen: * N/A * A1c = 5.9 % 01/25/19 Risk Factors for Insulin Resistance: * Steroids: Dex 8 mg PO preop on 02/27, prednisone 20 mg ordered prn * Infection: * Pressors: * IVF: * Recent Surgery: POD#1 * Diet: T2DM * Mechanical Ventilation: - Assessment & Plan Assessment & Plan: ASSESSMENT: * Ms. Pablo is admitted following right shoulder arthroplasty, this is post op day #1, she received 8 mg of dexamethasone po preoperatively * Currently ordered novolog correction and carb coverage, BSGs 102-144 today, will continue with sliding scale + prandial for now, will consider adding basal if BSGs trend upward PLAN FOR INPATIENT GLYCEMIC CONTROL: * Basal insulin * held * Bolus insulin * NovoLog per scale ACHS or Q6hrs while NPO * Goal Range: Low 110 mg/dL - High 140 mg/dL * Correction Factor: 25 mg/dL/unit * Nutritional / Prandial insulin per carb ratio of 1 unit per 10 grams CHO consumed * Please note that the plan above was derived based on current level of insulin resistance and hospital stress. These recommendations are appropriate for inpatient admission only. Plan of care upon discharge will need to be reassessed to avoid potential outpatient hypo/hyperglycemia. Thank you.
--- NOTE | 2019-02-28 18:09 | Consultation ---
Date of Consultation February 28, 2019 Assessment & Plan (1) Rotator cuff arthropathy: s/p Right Reversed TSA with humeral head bone graft 02/27 Pain medication, dvt proph per primary monitor for acute blood loss leukocytosis secondary to surgery (2) Polycythemia vera: Continue home ruxolitinib (3) Hypertension: Continue home triamteren - hctz, asa, amlodipine (4) Gout: continue allopurinol (5) Prediabetes: A1c 5.9 Bsgs ac & hs - sugars slightly elevated but stable Supervising Physician Co-Signing Physician Notes I supervised Antonia Ramsay NP on this patient's care. I examined the patient today independently of her. I discussed the plan of care with her with the plan being as written in her note except for any following changes/exceptions: None. Having some right shoulder discomfort this afternoon. Otherwise in good health and in good spirits. History of Present Illness Ms. Pablo is status post right reversed TSA with humeral head bone graft yesterday. Pain in shoulder is tolerable. Denies sob, cough, cp, nausea, vomiting, diarrhea, dysuria. 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, never smoker, drinks one glass of wine per month, Family: mother is still living, father of COPD Attending Physician: Fady Gómez MD Allergies Allergy/AdvReac Type Severity Reaction Status Date / Time codeine AdvReac Mild NAUSEA/VOMI Verified 02/27/19 11:51 TING SEASONAL Allergy Unknown sneezing, Uncoded 01/21/19 09:10 eyes irritated, runny nose Home Medications Home Medications Medication Instructions Recorded Confirmed Type aspirin [Aspirin Low Dose] 81 mg PO QPM 03/07/18 02/27/19 History acetaminophen 500 mg tablet 1,000 mg PO TID PRN tab 10/10/18 02/27/19 History prednisone 10 mg tablet 20 mg PO DAILY PRN #120 tab 10/10/18 02/27/19 Rx ruxolitinib 10 mg tablet 10 mg PO QPM #90 tab 10/10/18 02/27/19 Rx allopurinol 100 mg tablet 200 mg PO QAM #180 tab 09/13/19 01/22/20 Rx fluoxetine 20 mg tablet 20 mg PO QAM #90 tab 12/19/18 02/27/19 Rx amlodipine [Norvasc] 2.5 mg PO HS 01/21/19 02/27/19 History meloxicam 15 mg PO QPM 01/21/19 02/27/19 History omeprazole 20 mg PO QAM 01/21/19 02/27/19 History triamterene-hydrochlorothiazid 0.5 tab PO QAM 01/21/19 02/27/19 History Patient History Family History Father FHx: lung cancer exposure to asbestos and hx of a smoker Other Family history non-contributory Social History Preferred Language: Gabonese Communication Ability: Effective Wood Hacker Required: No Beliefs That Will Affect Care: None marital status: Current Living Situation: Family Other Information That Helps Us Care for You: No Feels Safe at Home: Yes Safety Concerns: Feels Safe At This Time Smoking Status: Never smoker Do You Dip or Chew Tobacco: No ; Second Hand Exposure: No ; Tobacco Cessation Education Requested by Patient: No Hx Alcohol Use: Yes Alcohol type: wine Hx Substance Use: No Review of Systems Review of Systems: All systems reviewed & are unremarkable except as noted in HPI & below Physical Exam Physical Exam: General: no distress Eyes: normal inspection, PERLL Respiratory: chest non tender, crackles right base otherwise clear to auscultation, no respiratory distress, no accessory muscle use Cardiac: regular rate and rhythm, no rub or gallop, no murmur, no edema, no jvd GI/: active bowel sounds, no abd pain or tenderness, soft, non distended Extremities: normal range of motion, normal strength, non tender Neuro/Psych: alert and oriented x 3, normal mood and affect Skin: normal color, dry Results & Data Vital Signs (Past 12 Hours) Vital Signs Temp Pulse Resp BP Pulse Ox 02/28/19 15:02 36.7 C 83 16 147/80 H 92 02/28/19 11:43 36.8 C 66 16 136/81 92 02/28/19 07:00 36.8 C 88 16 115/77 91 PG Care Time/CCT Total # of Minutes Spent Total Time Spent with Patient: Total time spent is greater than 50% in coordination of care (as documented) at patient's floor/unit and/or counseling patient: Coding Level of Care Code 60565 Inpt Consult Level 4 Diagnoses Rotator cuff arthropathy M12.819 Polycythemia vera D45 Hypertension I10 Gout M10.9 Prediabetes R73.03
[2019-02-28] MEDS: AMLODIPINE BESYLATE 5 MG TAB PO SCH (20:39)
[2019-02-28] MEDS: SENNA 8.6 MG TAB PO SCH (20:40)
[2019-02-28] MEDS: RIVAROXABAN 10 MG TABLET PO SCH (20:42)
[2019-02-28] MEDS: ASPIRIN 81 MG ECTAB PO SCH (20:42)
[2019-02-28] MEDS: JAKAFI PO SCH (20:43)
[2019-03-01] MEDS: HYDROmorphone INJ 0.5 MG/0.5 ML SYR IV PRN ×2 (03:14→20:47)
[2019-03-01] MEDS: OXYCODONE HCL IR 5 MG TAB (IMMEDIATE RELEASE) PO PRN ×3 (05:20→19:33)
[2019-03-01 05:27] LABS: Basophils # (auto) 0.04 K/uL (0-0.2); Basophils % (auto) 0.3 %; Eosinophils # (auto) 0.43 K/uL (0-0.5); Eosinophils % (auto) 2.7 %; Hematocrit (blood only) 40.5 % (37-47); Hemoglobin 12.5 g/dL (12.0-16.0); Immature Granulocytes # (auto) 0.06 K/uL (0.00-0.02); Immature Granulocytes % (auto) 0.4 %; Lymphocytes # (auto) 2.47 K/uL (1.2-3.4); Lymphocytes % (auto) 15.5 %; Mean Corpuscular Hgb Conc 30.9 g/dL (32-36); Mean Corpuscular Volume 84.4 fL (80-100); Mean Platelet Volume 11.5 fL (7.4-10.4); Monocytes # (auto) 1.21 K/uL (0.11-0.59); Monocytes % (auto) 7.6 %; Neutrophils # (auto) 11.68 K/uL (1.4-6.5); Neutrophils % (auto) 73.5 %; Platelet Count 734 K/uL (130-400); RDW Standard Deviation 57.9 fL (36.4-46.3); White Blood Count 15.89 K/uL (4.8-10.8)
[2019-03-01 05:50] LABS: BUN Creatinine Ratio 23.5 (10-20); Calcium 8.3 mg/dl (8.5-10.1); Creatinine Clr Calc Pharmacy 63.5 ml/min; Est GFR (Non-African American) 61.3; Potassium 3.6 mmol/L (3.5-5.1)
[2019-03-01] MEDS: INSULIN ASPART 100 UNITS/ML 3 ML PEN SC SCH ×4 (08:06→21:50)
[2019-03-01] MEDS: TRIAMTERENE/HCTZ 37.5/25MG TAB PO SCH (08:10)
[2019-03-01] MEDS: DOCUSATE SODIUM 100 MG CAP PO SCH ×2 (08:10→21:57)
[2019-03-01] MEDS: PANTOprazole 40 MG TAB PO SCH (08:10)
[2019-03-01] MEDS: MULTIVITAMIN TAB PO SCH (08:10)
[2019-03-01] MEDS: FLUOXETINE HCL 20 MG CAP PO SCH (08:11)
[2019-03-01] MEDS: allopurinoL 100 MG TAB PO SCH (08:11)
--- NOTE | 2019-03-01 08:43 | Orthopedic Progress Note ---
Date of Service March 01, 2019 Assessment & Plan (1) Rotator cuff arthropathy: POD #2, Right Reversed TSA with humeral head bone graft Hypoxia during the night which required 2 L of O2 per nc. Medicine service following and will defer to their recommendations. Limited PT/ OT, No formal PT needed at D/C. DVT proph- ASA, will start Eliquis tonight due to polycythemia vera D/C plans- Home w HEP As per medicine. Subjective POD 2 s/p R TSA Patient currently sitting up in bed. She is awake and alert. She is currently on 2 L of O2 per nasal cannula which she states she does not use at home. Nursing relates O2 sats dropping in the mid 80s during the night. Latest attempted to be off oxygen showed her O2 saturation to be at 88%. Patient currently denies shortness of breath or chest pain. Denies fever or chills. Pain is controlled and she states she feels well. Physical Exam Physical Exam: Dressing is clean, dry, intact. Drain has been removed. Sling is in place. CMS is intact. She has good motor function of her wrist, and fingers. Capillary refill is less than 2 seconds. Results & Data Vital Signs (Past 12 Hours) Vital Signs Temp Pulse Pulse Resp BP Pulse Ox 03/01/19 08:04 96 03/01/19 07:10 93 03/01/19 07:08 82 L 03/01/19 06:57 36.6 C 76 16 127/74 90 02/28/19 23:00 91 02/28/19 22:59 36.8 C 74 14 131/82 81 L Laboratory Results Laboratory Results WBC 15.89 K/uL (4.8-10.8) H 03/01/19 04:33 RBC 4.80 M/uL (4.2-5.4) 03/01/19 04:33 Hgb 12.5 g/dL (12.0-16.0) 03/01/19 04:33 Hct 40.5 % (37-47) 03/01/19 04:33 MCV 84.4 fL (80-100) 03/01/19 04:33 MCH 26.0 pg (25-34) 03/01/19 04:33 MCHC 30.9 g/dL (32-36) L 03/01/19 04:33 RDW Std Deviation 57.9 fL (36.4-46.3) H 03/01/19 04:33 RDW Coeff of Jeniffer 19.0 % (11.5-14.5) H 03/01/19 04:33 Plt Count 734 K/uL (130-400) H 03/01/19 04:33 MPV 11.5 fL (7.4-10.4) H 03/01/19 04:33 Immature Gran % (Auto) 0.4 % 03/01/19 04:33 Neut % (Auto) 73.5 % 03/01/19 04:33 Lymph % (Auto) 15.5 % 03/01/19 04:33 Hooker % (Auto) 7.6 % 03/01/19 04:33 Eos % (Auto) 2.7 % 03/01/19 04:33 Baso % (Auto) 0.3 % 03/01/19 04:33 Immature Gran # (Auto) 0.06 K/uL (0.00-0.02) H 03/01/19 04:33 Neut # (Auto) 11.68 K/uL (1.4-6.5) H 03/01/19 04:33 Lymph # (Auto) 2.47 K/uL (1.2-3.4) 03/01/19 04:33 Hooker # (Auto) 1.21 K/uL (0.11-0.59) H 03/01/19 04:33 Eos # (Auto) 0.43 K/uL (0-0.5) 03/01/19 04:33 Baso # (Auto) 0.04 K/uL (0-0.2) 03/01/19 04:33 PT 11.6 Seconds (9.0-12.0) 01/25/19 10:58 INR 1.1 (0.9-1.1) 01/25/19 10:58 APTT 24.2 Seconds (21.0-31.0) 01/25/19 10:58 PTT Ratio 0.9 01/25/19 10:58 Sodium 135 mmol/L (136-145) L 03/01/19 04:33 Potassium 3.6 mmol/L (3.5-5.1) 03/01/19 04:33 Chloride 102 mmol/L (98-107) 03/01/19 04:33 Carbon Dioxide 28 mmol/L (21-32) 03/01/19 04:33 Anion Gap 5.0 (3-11) 03/01/19 04:33 BUN 23 mg/dl (7-18) H 03/01/19 04:33 Creatinine 0.97 mg/dl (0.6-1.2) 03/01/19 04:33 Est Cr Clr Drug Dosing 63.5 ml/min 03/01/19 04:33 Est GFR ( Amer) 71.0 03/01/19 04:33 Est GFR (Non-Af Amer) 61.3 03/01/19 04:33 BUN/Creatinine Ratio 23.5 (10-20) H 03/01/19 04:33 Glucose 124 mg/dl (70-99) H 03/01/19 04:33 POC Glucose 153 mg/dl (70-99) H 03/01/19 08:23 Estimat Average Glucose 123 mg/dl 01/25/19 10:58 Hemoglobin A1c 5.9 % (4.5-5.6) H 01/25/19 10:58 Calcium 8.3 mg/dl (8.5-10.1) L 03/01/19 04:33 Albumin 3.8 gm/dl (3.4-5.0) 01/25/19 10:58 Urine Color Dark Yellow 01/25/19 Unknown Urine Appearance Clear (Clear) 01/25/19 Unknown Urine pH 5.0 (4.5-7.5) 01/25/19 Unknown Ur Specific [place] 1.030 (1.000-1.030) 01/25/19 Unknown Urine Protein Negative (Negative) 01/25/19 Unknown Urine Glucose (UA) Negative (Negative) 01/25/19 Unknown Urine Ketones Negative (Negative) 01/25/19 Unknown Urine Blood Negative (Negative) 01/25/19 Unknown Urine Nitrite Negative (Negative) 01/25/19 Unknown Urine Bilirubin Negative (Negative) 01/25/19 Unknown Urine Urobilinogen Negative (Negative) 01/25/19 Unknown Ur Leukocyte Esterase Negative (Negative) 01/25/19 Unknown Hepatitis C Ab Screen Neg (Neg) 02/28/19 05:29 Blood Type O Negative 01/25/19 10:58 Antibody Screen NEGATIVE 01/25/19 10:58
[2019-03-01] MEDS: ACETAMINOPHEN 500 MG TAB PO SCH ×2 (09:11→16:23)
--- NOTE | 2019-03-01 09:46 | XRay Report ---
XR chest 2V PA/lateral CLINICAL HISTORY: 63 years-old Female presenting with hypoxia, shortness of breath. TECHNIQUE: PA and lateral views of the chest were obtained. COMPARISON: 03/09/2018. FINDINGS: Lateral radiograph of the chest is limited by overlapping right upper extremity. Atherosclerosis of the aortic arch. Cardiac silhouette enlarged. Lower lung volumes with of the right hemidiaphragm. Minimal bibasilar opacities, right greater than left. Mild interstitial prominence. S mall right pleural effusion. No pneumothorax. Degenerative changes of the thoracic spine. Reverse tot al right shoulder arthroplasty. Upper abdomen normal. IMPRESSION: 1. Low lung volumes with hypoventilatory changes, namely bibasilar atelectasis greatest on the right . 2. Megaly with mild congestive change. No bryant pulmonary edema. 3. Small right pleural effusion. ACT 112: Negative or not required by law. Electronically signed by: Alcides Solorzano M.D. 03/01/2019 9:45 AM
[2019-03-01] MEDS ORDERED: FUROSEMIDE 20 MG in SYRINGE 0 ML IV ONE (11:40)
[2019-03-01] MEDS: ONDANSETRON INJ 2 MG/ML 2 ML VIAL IV PRN (13:24)
--- NOTE | 2019-03-01 16:26 | Hospitalist Progress Note ---
Date of Service March 01, 2019 Assessment & Plan (1) Rotator cuff arthropathy: s/p Right Reversed TSA with humeral head bone graft 02/27 Pain medication, dvt proph per primary monitor for acute blood loss leukocytosis secondary to surgery - trending down (2) Polycythemia vera: Continue home ruxolitinib, Eliquis resumed per primary (3) Hypertension: Continue home triamteren - hctz, asa, amlodipine (4) Gout: continue allopurinol (5) Prediabetes: A1c 5.9 Bsgs ac & hs - sugars slightly elevated but stable (6) Hypoxia: CXR showing atelectasis and hypoxia. Will give 20mg IV lasix. Encourage IS use. Patient does not have any heart failure history that she is aware of. She does not thing she has ever had an echocardiogram. She should follow up on this with her pcp. Subjective Ms. Pablo is hypoxic today, requiring 2L NC. She has no cough or fever, leukocytosis is improving. ROS Constitutional: no chills, aches, sweats or fever Respiratory: no sob,cough, sputum, or wheezing Cardiac: no chest pain, palpitations, edema, orthopnea or lightheadedness GI: no abdominal pain, nausea, vomiting, diarrhea or constipation : no dysuria or hesitancy Extremities: no joint pain or weakness Skin: no rash All other systems reviewed and negative Physical Exam Physical Exam: General: no distress Eyes: normal inspection, PERLL Respiratory: chest non tender, crackles right base, no respiratory distress, no accessory muscle use Cardiac: regular rate and rhythm, no rub or gallop, no murmur, no edema, no jvd GI/: active bowel sounds, no abd pain or tenderness, soft, non distended Extremities: normal range of motion, normal strength, non tender Neuro/Psych: alert and oriented x 3, normal mood and affect Skin: normal color, dry Results & Data Vital Signs (Past 12 Hours) Vital Signs Temp Pulse Pulse Resp BP Pulse Ox 03/01/19 15:14 36.8 C 67 18 146/80 H 95 03/01/19 08:04 96 03/01/19 07:10 93 03/01/19 07:08 82 L 03/01/19 06:57 36.6 C 76 16 127/74 90 PG Care Time/CCT Total # of Minutes Spent Total Time Spent with Patient: Total time spent is greater than 50% in coordination of care (as documented) at patient's floor/unit and/or counseling patient: Coding Level of Care Code 89417 Subseq Hosp Care Lvl 2 Diagnoses Rotator cuff arthropathy M12.819 Polycythemia vera D45 Hypertension I10 Gout M10.9 Prediabetes R73.03 Hypoxia R09.02
[2019-03-01] MEDS: RIVAROXABAN 10 MG TABLET PO SCH (20:53)
[2019-03-01] MEDS: ASPIRIN 81 MG ECTAB PO SCH (21:57)
[2019-03-01] MEDS: JAKAFI PO SCH (21:57)
[2019-03-01] MEDS: SENNA 8.6 MG TAB PO SCH (21:57)
[2019-03-01] MEDS: AMLODIPINE BESYLATE 5 MG TAB PO SCH (21:58)
[2019-03-02] MEDS: ACETAMINOPHEN 500 MG TAB PO SCH ×2 (00:28→09:11)
[2019-03-02] MEDS: OXYCODONE HCL IR 5 MG TAB (IMMEDIATE RELEASE) PO PRN (03:12)
--- NOTE | 2019-03-02 07:48 | Orthopedic Progress Note ---
Date of Service March 02, 2019 Assessment & Plan (1) Rotator cuff arthropathy: POD #3, Right Reversed TSA with humeral head bone graft Hypoxia during the night which required 2 L of O2 per nc yesterday. Has been 94 this mornign on RA. Limited PT/ OT, No formal PT needed at D/C. DVT proph- ASA, will start Eliquis tonight due to polycythemia vera D/C plans- Home w HEP, possibly today if cleared by medicine for discharge As per medicine. Subjective POD#3 reverse TSA. She is improved this morning. States oxygen levels have been better, does have nasal canula on now. No chest pain, sob, dizziness. Pain controlled. Review of Systems Review of Systems: All systems reviewed & are unremarkable except as noted in HPI & below Physical Exam Physical Exam: Right shoulder-sling in place. Dressing c/d/i. 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 Distally n/v status and sensation intact. Results & Data Vital Signs (Past 12 Hours) Vital Signs Temp Pulse Pulse Resp BP Pulse Ox 03/02/19 07:40 36.6 C 72 16 150/69 H 94 03/02/19 04:08 62 108/59 L 94 03/02/19 00:28 93 03/02/19 00:27 37.1 C 95 H 14 144/85 H 84 L 03/01/19 21:49 74 131/82
[2019-03-02] MEDS: MULTIVITAMIN TAB PO SCH (09:12)
[2019-03-02] MEDS: TRIAMTERENE/HCTZ 37.5/25MG TAB PO SCH (09:12)
[2019-03-02] MEDS: PANTOprazole 40 MG TAB PO SCH (09:12)
[2019-03-02] MEDS: FLUOXETINE HCL 20 MG CAP PO SCH (09:12)
[2019-03-02] MEDS: allopurinoL 100 MG TAB PO SCH (09:12)
[2019-03-02] MEDS: DOCUSATE SODIUM 100 MG CAP PO SCH (09:12)
[2019-03-02] MEDS: INSULIN ASPART 100 UNITS/ML 3 ML PEN SC SCH (09:13)
[2019-03-02] MEDS: ONDANSETRON INJ 2 MG/ML 2 ML VIAL IV PRN (09:15)
[2019-03-02 09:17] LABS: Basophils # (auto) 0.03 K/uL (0-0.2); Basophils % (auto) 0.3 %; Eosinophils # (auto) 0.37 K/uL (0-0.5); Eosinophils % (auto) 3.2 %; Hemoglobin 12.3 g/dL (12.0-16.0); Immature Granulocytes # (auto) 0.04 K/uL (0.00-0.02); Immature Granulocytes % (auto) 0.4 %; Lymphocytes % (auto) 11.4 %; Mean Corpuscular Hemoglobin 26.7 pg (25-34); Mean Corpuscular Hgb Conc 31.5 g/dL (32-36); Mean Corpuscular Volume 84.8 fL (80-100); Mean Platelet Volume 10.9 fL (7.4-10.4); Monocytes # (auto) 0.86 K/uL (0.11-0.59); Monocytes % (auto) 7.6 %; Neutrophils # (auto) 8.79 K/uL (1.4-6.5); Neutrophils % (auto) 77.1 %; Platelet Count 534 K/uL (130-400); RDW Coefficient of Variation 18.6 % (11.5-14.5); RDW Standard Deviation 56.5 fL (36.4-46.3); White Blood Count 11.39 K/uL (4.8-10.8)
[2019-03-02 09:53] LABS: BUN Creatinine Ratio 19.9 (10-20); Calcium 8.6 mg/dl (8.5-10.1); Creatinine Clr Calc Pharmacy 84.4 ml/min; Est GFR (African American) 100.2; Est GFR (Non-African American) 86.4; Potassium 3.2 mmol/L (3.5-5.1)
[2019-03-02] MEDS ORDERED: POTASSIUM CHLORIDE 20 MEQ TABCR PO STA (10:14)
[2019-03-02] MEDS ORDERED: FUROSEMIDE 20 MG in SYRINGE 0 ML IV ONE (10:45)
--- NOTE | 2019-03-02 10:48 | Hospitalist Progress Note ---
Date of Service March 02, 2019 Assessment & Plan (1) Rotator cuff arthropathy: s/p Right Reversed TSA with humeral head bone graft 02/27 Pain medication, dvt proph per primary monitor for acute blood loss leukocytosis secondary to surgery - trending down (2) Polycythemia vera: Continue home ruxolitinib (3) Hypertension: Continue home triamteren - hctz, asa, amlodipine (4) Gout: continue allopurinol (5) Prediabetes: A1c 5.9 Bsgs ac & hs - sugars slightly elevated but stable (6) Hypoxia: CXR showing atelectasis and some congestion. Will give another 20mg IV lasix. Encourage IS use. No cough, sob, or fevers Patient does not have any heart failure history that she is aware of. She does not thing she has ever had an echocardiogram. Consider outpatient echocardiogram in follow up 2 step showed showed need for 2L with ambulation which patient will go home with. We discussed s/s of developing pneumonia and that this would require that she call her doctor right away. She will follow up with her doctor within about a week. (7) Hypokalemia: Potassium 3.2 today. Will give 80 mEq po in two doses today and then another 20 mEq tomorrow to cover second administration of lasix Patient is medically stable for discharge. Subjective Ms. Pablo is feeling well. She is not sob, at baseline she gets short of breath with stairs and exertion which she attributes to her polycythemia vera. She has had a stress test within the past year. She denies cough, aches or chills or feeling unwell. ROS Constitutional: no chills, aches, sweats or fever Respiratory: no sob,cough, sputum, or wheezing Cardiac: no chest pain, palpitations, edema, orthopnea or lightheadedness GI: no abdominal pain, nausea, vomiting, diarrhea or constipation : no dysuria or hesitancy Extremities: no joint pain or weakness Skin: no rash All other systems reviewed and negative Physical Exam Physical Exam: General: no distress Eyes: normal inspection, PERLL Respiratory: chest non tender, clear to auscultation, normal breath sounds, no respiratory distress, no accessory muscle use Cardiac: regular rate and rhythm, no rub or gallop, no murmur, no edema, no jvd GI/: active bowel sounds, no abd pain or tenderness, soft, non distended Extremities: normal range of motion, normal strength, non tender Neuro/Psych: alert and oriented x 3, normal mood and affect Skin: normal color, dry Results & Data Vital Signs (Past 12 Hours) Vital Signs Temp Pulse Pulse Pulse Pulse Pulse Pulse 03/02/19 09:21 102 H 107 H 88 87 03/02/19 07:40 36.6 C 72 03/02/19 04:08 62 03/02/19 00:28 03/02/19 00:27 37.1 C 95 H Resp Resp Resp Resp Resp BP Pulse Ox 03/02/19 09:21 20 20 16 16 03/02/19 07:40 16 150/69 H 94 03/02/19 04:08 108/59 L 94 03/02/19 00:28 93 03/02/19 00:27 14 144/85 H 84 L Pulse Ox Pulse Ox Pulse Ox Pulse Ox 03/02/19 09:21 95 85 L 95 95 03/02/19 07:40 03/02/19 04:08 03/02/19 00:28 03/02/19 00:27 PG Care Time/CCT Total # of Minutes Spent Total Time Spent with Patient: Total time spent is greater than 50% in coordination of care (as documented) at patient's floor/unit and/or counseling patient: Coding Level of Care Code 25165 Subseq Hosp Care Lvl 3 Diagnoses Rotator cuff arthropathy M12.819 Polycythemia vera D45 Hypertension I10 Gout M10.9 Prediabetes R73.03 Hypoxia R09.02 Hypokalemia E87.6
[2019-03-02] MEDS ORDERED: POTASSIUM CHLORIDE 20 MEQ TABCR PO ONE (13:00)
--- NOTE | 2019-03-11 00:14 | Discharge Summary ---
HISTORY OF PRESENT ILLNESS: This is a 63-year-old female patient of Dr. Gómez'la complaining of chronic right shoulder pain, longstanding, now progressively getting worse. The patient was diagnosed with end-stage osteoarthritis and rotator cuff arthropathy. She failed conservative treatment and wished to proceed with a right shoulder reversed total shoulder arthroplasty. PAST MEDICAL HISTORY: Hypertension, irregular heartbeat, anxiety, polycythemia vera, osteoarthritis, acid reflux, obesity. POSTOPERATIVE COURSE: The patient underwent a right reverse total shoulder arthroplasty with BIO-RSA humeral head autograft and biceps tenodesis on 02/27/2019. She was followed closely with medical consultation, DVT prophylaxis, physical therapy, and pain control. Postoperative day #1, overnight, she developed hypoxia. She was given 2 liters of nasal cannula. Chest x-ray ordered by medicine showed atelectasis and congestion. She was subsequently given 20 mg of Lasix and continued her oxygen. On postoperative day #3, she was still using 2 liters of oxygen. Again she was given another 20 mg of Lasix too. She was also having some hypokalemia. She was given 80 mEq of potassium on postoperative day #3. The patient did perform a step down program which required her to go home with 2 liters of oxygen. She will continue incentive spirometry and follow up with her PCP within 1 week. PHYSICAL EXAMINATION: Right shoulder incision was clean, dry and intact. There was no redness or drainage. Skin edges were approximated well. Anabell are intact. Good elbow, wrist and hand motion. Neurologically and neurovascularly intact in her right upper extremity. Alert and oriented x3. DIAGNOSES: Status post right reversed total shoulder arthroplasty with BIO-RSA humeral head autograft and biceps tenodesis. She had postoperative hypoxia which required home oxygen being at 2 liters. She will continue Eliquis as a DVT prophylaxis secondary to her polycythemia vera. She will continue her preadmission medications with the addition of pain medications. The patient will follow up as scheduled as an outpatient.
== END 2019-03-02 13:20 | disposition home or self-care (01) | DRG 483 ==
LOC: ASU 11:08 → 3E 20:24
DX: I49.9 Cardiac arrhythmia, unspecified; Z68.34 Body mass index [BMI] 34.0-34.9, adult; R09.02 Hypoxemia; Z79.82 Long term (current) use of aspirin; Z88.5 Allergy status to narcotic agent; M10.9 Gout, unspecified; D45 Polycythemia vera; Z79.899 Other long term (current) drug therapy; E66.9 Obesity, unspecified; M19.011 Primary osteoarthritis, right shoulder; E87.6 Hypokalemia; Z79.1 Long term (current) use of non-steroidal anti-inflammatories (NSAID); R73.03 Prediabetes; K21.9 Gastro-esophageal reflux disease without esophagitis; M75.21 Bicipital tendinitis, right shoulder; F41.9 Anxiety disorder, unspecified; I10 Essential (primary) hypertension

== ENCOUNTER 2020-10-07 10:34 | Inpatient (IN) ==
--- NOTE | 2020-09-07 15:53 | PAT Medication Instructions ---
Medication Instructions Date of Service September 07, 2020 Home Medications Medication Instructions Recorded ruxolitinib 10 mg tablet (Jakafi) 10 mg PO QPM #90 tab 10/10/18 tramadol 50 mg tablet 50 mg PO Q8H PRN #30 tab 10/21/19 allopurinol 100 mg tablet 200 mg PO QAM #180 tab 12/20/19 amoxicillin 500 mg capsule 500 mg PO ONCE #4 cap 12/31/19 fluoxetine 20 mg tablet 20 mg PO QAM #90 tab 01/09/20 triamterene 37.5 1 tab PO QAM #90 tab 03/13/20 mg-hydrochlorothiazide 25 mg tablet omeprazole 20 mg capsule,delayed 20 mg PO QAM #90 cap 05/25/20 release aspirin 81 mg tablet,delayed release (Aspirin Low Dose) 81 mg PO QPM ruxolitinib 10 mg tablet (Jakafi) 10 mg PO QPM tramadol 50 mg tablet 50 mg PO Q8H PRN allopurinol 100 mg tablet 200 mg PO QAM amoxicillin 500 mg capsule 500 mg PO ONCE fluoxetine 20 mg tablet 20 mg PO QAM triamterene 37.5 mg-hydrochlorothiazide 25 mg tablet 1 tab PO QAM omeprazole 20 mg capsule,delayed release 20 mg PO QAM hydroxyurea 500 mg capsule 500 mg PO HS acetaminophen 500 mg tablet 1,000 mg PO Q8H PRN amlodipine 10 mg tablet (Norvasc) 10 mg PO QAM famotidine 20 mg tablet (Pepcid AC) 20 mg PO HS meloxicam 15 mg tablet 15 mg PO QAM pravastatin 10 mg tablet 10 mg PO HS Continue as directed amoxicillin 500 mg capsule 500 mg PO ONCE (if needed) ASK your surgeon for instructions meloxicam 15 mg tablet 15 mg PO QAM ASK your prescriber and surgeon ruxolitinib 10 mg tablet (Jakafi) 10 mg PO QPM hydroxyurea 500 mg capsule 500 mg PO HS DO NOT take the morning of surgery triamterene 37.5 mg-hydrochlorothiazide 25 mg tablet 1 tab PO QAM Take morning of surgery With a small sip of water, OTHERWISE NOTHING TO EAT OR DRINK AFTER MIDNIGHT: tramadol 50 mg tablet 50 mg PO Q8H PRN (okay to take up to 4 hours prior to surgery if needed) allopurinol 100 mg tablet 200 mg PO QAM fluoxetine 20 mg tablet 20 mg PO QAM omeprazole 20 mg capsule,delayed release 20 mg PO QAM acetaminophen 500 mg tablet 1,000 mg PO Q8H PRN (okay to take up to 4 hours prior to surgery if needed) amlodipine 10 mg tablet (Norvasc) 10 mg PO QAM Take evening before surgery aspirin 81 mg tablet,delayed release (Aspirin Low Dose) 81 mg PO QPM tramadol 50 mg tablet 50 mg PO Q8H PRN (if needed) acetaminophen 500 mg tablet 1,000 mg PO Q8H PRN (if needed) famotidine 20 mg tablet (Pepcid AC) 20 mg PO HS pravastatin 10 mg tablet 10 mg PO HS Other Notes If you have any questions please call us at [phone] or [phone] or [phone] or [phone]
--- NOTE | 2020-09-10 13:02 | Anesthesiology Consultation ---
Date of Service September 10, 2020 Assessment & Plan (1) Encounter for pre-operative examination: Chart Review Chart Review: Acceptable Risk for Surgery (pending surgeon ordered PCP clearance and preop Covid testing results ) and Patient seen in Pre Admission Testing Does have bump on roof of mouth- chronic- uses caution if intubation were needed Awaiting surgeon ordered PCP clearance 09/30/20; will attempt to get information from [facility] regarding med instructions/recommendations prior to surgery (for Jakafi)- patient calling [facility] Per PAT appointment 09/10/2020, patient plans to travel to [facility] 09/28/2020. Patient will be staying in cabin with 6 other family members. Patient is vaccinated for Covid. No known Covid infection in the past 90 days. No known Covid positive contacts or Covid related symptoms. Preop Covid testing scheduled 10/05/20= will await results. Educated on importance of self quarantining, social distancing and wearing mask in public both for the patient after Covid testing done. Due to high travel risk and patient being admitted (possibility of roommate)- will order Cepheid test for DOS pending preop Covid testing negative Teaching & Discussion Pre-Anesthesia Teaching/Discussion Notes: Instructed NPO after midnight before surgery,except medications with 15 cc of water. Medication instructions provided according to the PAT guidelines. History Surgery Operation Date: 10/07/20 07:15 Proposed Procedures p Right Total Knee Arthroplasty - Fady Gómez MD Height/Weight Height: 5 ft 5 in Weight: 94 kg Allergies Allergy/AdvReac Type Severity Reaction Status Date / Time codeine AdvReac Mild NAUSEA/VOMI Verified 09/04/20 10:38 TING SEASONAL Allergy Unknown sneezing, Uncoded 09/04/20 10:38 eyes irritated, runny nose Medications Home Medications Medication Instructions Recorded Confirmed Last Taken aspirin 81 mg tablet,delayed 81 mg PO QPM 03/07/18 09/04/20 02/26/19 20:30 release (Aspirin Low Dose) ruxolitinib 10 mg tablet (Jakafi) 10 mg PO QPM #90 tab 10/10/18 09/04/20 02/26/19 22:00 tramadol 50 mg tablet 50 mg PO Q8H PRN #30 tab 10/21/19 09/04/20 Unknown allopurinol 100 mg tablet 200 mg PO QAM #180 tab 12/20/19 09/04/20 Unknown amoxicillin 500 mg capsule 500 mg PO ONCE #4 cap 12/31/19 09/04/20 Unknown triamterene 37.5 1 tab PO QAM #90 tab 03/13/20 09/04/20 Unknown mg-hydrochlorothiazide 25 mg tablet omeprazole 20 mg capsule,delayed 20 mg PO QAM #90 cap 05/25/20 09/04/20 Unknown release hydroxyurea 500 mg capsule 500 mg PO HS 07/07/20 09/04/20 Unknown acetaminophen 500 mg tablet 1,000 mg PO Q8H PRN 09/04/20 09/04/20 Unknown amlodipine 10 mg tablet (Norvasc) 10 mg PO QAM 09/04/20 09/04/20 Unknown famotidine 20 mg tablet (Pepcid AC) 20 mg PO HS 09/04/20 09/04/20 Unknown meloxicam 15 mg tablet 15 mg PO QAM 09/04/20 09/04/20 Unknown fluoxetine 20 mg tablet 20 mg PO QAM #90 tab 09/11/20 Unknown pravastatin 10 mg tablet 10 mg PO HS #90 tab 09/11/20 Unknown Past Medical History Medical History (Updated 09/10/20 @ 13:27 by Merle Mayes PA-C) Anxiety Fibromyalgia GERD (gastroesophageal reflux disease) Well controlled and stable Gout No recent issues Hyperlipidemia Hypertension Numbness and tingling in both hands r/t polycythemia SANDRA (obstructive sleep apnea) Hx of sleep study prior to gastric sleeve surgery- mild SANDRA- no device- has lost weight since that time Osteoarthritis Polycythemia vera On Jakafi, follows with [facility] hematology (Dr Fox) Prediabetes Seasonal allergies Sensorineural hearing loss of both ears Tinnitus, bilateral Exercise / Class Metabolic Activity III < 4 Walking/Shop/Light housework (one flight of stairs - no chest pain, mild SOB secondary to polycythemia vera ) Past Family History Family History Father FHx: lung cancer exposure to asbestos and hx of a smoker Other Family history non-contributory Past Surgical History Surgical History History of x3 History of colonoscopy History of dilatation and curettage History of esophagogastroduodenoscopy (EGD) History of tonsillectomy History of total knee replacement Left Hx of arthroscopy of right knee Hx of bariatric surgery x2 - Lap bands insertion and removal Nausea and vomiting after administration of anesthetic agent S/P shoulder replacement 02/27/19 right S/P RADHA (total abdominal hysterectomy) Past Anesthesia History No Hx of Anesthesia Complications and No Family Hx of Anesthesia Complications History of PONV History of PONV and Hx of Motion Sickness Social History Smoking Status: Never smoker Do You Dip or Chew Tobacco: No Hx Alcohol Use: Yes Alcohol type: wine alcohol intake frequency: holidays/special occasions only Hx Substance Use: No substance use type: does not use Review of Systems Hx of snoring- did have sleep apnea- sleep study done prior to gastric sleeve- did have weight loss- has since has sleeved removed Patient denies chest pain, shortness of breath at rest, cough, wheezing, palpitations. No hx of seizures, stroke, MT. No hx of blood clots or blood transfusions Physical Exam Vital Signs VITALS BP 140/75 P 78 TEMP 98.4 SP02 95% RESP 16 Constitutional no acute distress ENMT Mouth: no TMJ clicking Thyromental Distance: > or= 3.5 Finger Breadths (3.5) Mallampati Class: III Missing molars Neck + short neck and + thick neck; neck extension not limited Respiratory normal respiratory effort; no respiratory distress Auscultation: lungs clear to auscultation bilaterally; no wheezes Cardiovascular Rate/Rhythm: regular rate and regular rhythm Heart Sounds: no murmur Vessels: no carotid bruit Musculoskeletal Spine: no pain with cervical ROM Extremities: extremities normal to inspection Psychiatric Orientation: alert Lab Results Anesthesia Preop Results Results Anesthesia Widget: WBC 6.35 K/uL (4.8-10.8) 09/10/20 Hgb 12.8 g/dL (12.0-16.0) 09/10/20 Hct 41.8 % (37-47) 09/10/20 Plt 501 K/uL (130-400) H 09/10/20 Na 139 mmol/L (136-145) 09/10/20 K 3.9 mmol/L (3.5-5.1) 09/10/20 Cl 105 mmol/L (98-107) 09/10/20 CO2 27 mmol/L (21-32) 09/10/20 BUN 16 mg/dl (7-18) 09/10/20 Creat 1.01 mg/dl (0.6-1.2) 09/10/20 Glucose Level 115 mg/dl (70-99) H 09/10/20 PT 11.0 Seconds (9.0-12.0) 09/10/20 PTT 25.8 Seconds (21.0-31.0) 09/10/20 INR 1.1 (0.9-1.1) 09/10/20 HA1c 5.4 % (4.5-5.6) 09/10/20 Urine Color Yellow 09/10/20 Urine Appearance Clear (Clear) 09/10/20 Urine pH 6.5 (4.5-7.5) 09/10/20 Urine Specific Banks 1.012 (1.000-1.030) 09/10/20 Urine Protein Negative (Negative) 09/10/20 Urine Glucose (UA) Negative (Negative) 09/10/20 Urine Ketones Negative (Negative) 09/10/20 Urine Blood Negative (Negative) 09/10/20 Urine Nitrite Negative (Negative) 09/10/20 Urine Bilirubin Negative (Negative) 09/10/20 Urine Urobilinogen Negative (Negative) 09/10/20 Urine Leukocyte Esterase Negative (Negative) 09/10/20 Blood Type O Negative 09/10/20 Antibody Screen NEGATIVE 09/10/20 Lab Comments: Chronic thrombocytosis (stable) Testing Electrocardiogram Date: 09/10/20 Sinus rhythm with occasional PVCs at [address] and T wave abnormality, consider anterior lateral ischemia When compared to EKG from Mar 09, 2018- PVCs are now present per cardio Chest X-Ray Date: 09/10/20 Findings: + NAD and + cardiomegaly (Mild) Stress Test Date: 12/04/18 Negative stress echo for ischemia at 84% MPHR. Appropriate blood pressure response to exercise. No arrhythmia. Study terminated due to dyspnea. No chest pain reported. Below average exercise tolerance. Rest echo: Normal LV size and systolic function with EF 55 to 60%. No regional wall motion abnormalities. Mild concentric LVH. Mild left atrial dilation. No significant valvular abnormalities.
--- NOTE | 2020-10-06 15:55 | History & Physical Report ---
Date of Service October 06, 2020 Assessment & Plan (1) Primary osteoarthritis of right knee: Plan: Treatment options discussed with patient. She has failed conservative measures and would like to proceed with knee replacement. Risks, benefits and alternatives to surgery including but not limited to infection, DVT, pain, stiffness, need for revision surgery, damage to blood vessels, damage to nerves, PE, , were discussed with the patient and they wish to proceed. Plan on right total knee arthroplasty at [facility] on 10/06/20. Will plan on outpatient PT post discharge. Will plan on Xarelto 10mg daily post op for DVT prophylaxis. All questions answered. She will follow up post operatively. History of Present Illness Chief Complaint: Right knee pain Primary Care Provider: [place] DO 65 year old female with PMHx significant for HTN, Polycythemia vera, high cholesterol, SANDRA, anxiety presents with ongoing right knee pain. Pain interferes with her ability to carry out normal daily activities. She has failed conservative measures including injections. She has previous left knee replacement and has done well. She would like to proceed with right knee replacement. Patient denies headaches, sweats, fevers, chills, double vision, blurred vision, cough, sore throat, dysphagia, chest pain, sob, wheezing, n/v/d /c, numbness, tingling, fatigue, urinary symptoms, mood disorders. ROS positive for right knee pain and stiffness. Allergies Allergy/AdvReac Type Severity Reaction Status Date / Time codeine AdvReac Mild NAUSEA/VOMI Verified 09/04/20 10:38 TING SEASONAL Allergy Unknown sneezing, Uncoded 09/04/20 10:38 eyes irritated, runny nose Home Medications Medication Instructions Recorded Confirmed Type aspirin 81 mg tablet,delayed 81 mg PO QPM 03/07/18 09/30/20 History release (Aspirin Low Dose) ruxolitinib 10 mg tablet (Jakafi) 10 mg PO QPM #90 tab 10/10/18 09/30/20 Rx tramadol 50 mg tablet 50 mg PO Q8H PRN #30 tab 10/21/19 09/30/20 Rx allopurinol 100 mg tablet 200 mg PO QAM #180 tab 12/20/19 09/30/20 Rx amoxicillin 500 mg capsule 500 mg PO ONCE #4 cap 12/31/19 09/30/20 Rx triamterene 37.5 1 tab PO QAM #90 tab 03/13/20 09/30/20 Rx mg-hydrochlorothiazide 25 mg tablet omeprazole 20 mg capsule,delayed 20 mg PO QAM #90 cap 05/25/20 09/30/20 Rx release hydroxyurea 500 mg capsule 500 mg PO HS 07/07/20 09/30/20 History acetaminophen 500 mg tablet 1,000 mg PO Q8H PRN 09/04/20 09/30/20 History famotidine 20 mg tablet (Pepcid AC) 20 mg PO HS 09/04/20 09/30/20 History meloxicam 15 mg tablet 15 mg PO QAM 09/04/20 09/30/20 History fluoxetine 20 mg tablet 20 mg PO QAM #90 tab 09/11/20 09/30/20 Rx pravastatin 10 mg tablet 10 mg PO HS #90 tab 09/11/20 09/30/20 Rx amlodipine 10 mg tablet (Norvasc) 10 mg PO QAM #90 tab 09/24/20 09/30/20 Rx Past Med/Surg History Medical History (Updated 10/06/20 @ 15:53 by Blair Berman) Anxiety Fibromyalgia GERD (gastroesophageal reflux disease) Well controlled and stable Gout No recent issues Hyperlipidemia Hypertension Numbness and tingling in both hands r/t polycythemia SANDRA (obstructive sleep apnea) Hx of sleep study prior to gastric sleeve surgery- mild SANDRA- no device- has lost weight since that time Osteoarthritis Polycythemia vera On Jakafi, follows with [facility] hematology (Dr Fox) Prediabetes Seasonal allergies Sensorineural hearing loss of both ears Tinnitus, bilateral Surgical History History of x3 History of colonoscopy History of dilatation and curettage History of esophagogastroduodenoscopy (EGD) History of tonsillectomy History of total knee replacement Left Hx of arthroscopy of right knee Hx of bariatric surgery x2 - Lap bands insertion and removal Nausea and vomiting after administration of anesthetic agent S/P shoulder replacement 02/27/19 right S/P RADHA (total abdominal hysterectomy) Family History Father FHx: lung cancer exposure to asbestos and hx of a smoker Other Family history non-contributory Social History Smoking Status: Never smoker Second Hand Exposure: No; Hx Alcohol Use: Yes Alcohol type: wine Hx Substance Use: No Preferred Language: Syrian Communication Ability: Effective 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 Beliefs That Will Affect Care: None marital status: Current Living Situation: Spouse Feels Safe at Home: Yes Assistive Devices: Glasses Review of Systems All systems reviewed & are unremarkable except as noted in HPI & below Physical Exam Constitutional: well developed and well nourished; no acute distress Eyes: PERRL, conjunctivae normal, anicteric sclerae ENMT: external ear and nose normal, oropharynx normal Neck: trachea midline, no thyromegaly Respiratory: normal respiratory effort, lungs clear to auscultation Cardiovascular: RRR, no murmur, no edema Musculoskeletal: Right knee : Tenderness medial joint line. Stable to valgus and varus stress, positive Marga's. Mild effusion. ROM 0-130 degrees. Varus alignment Skin: no rashes, warm and dry Neurologic: patellar DTR's 2+ bilat, sensation intact Psychiatric: A+Ox3, euthymic affect Results & Data ([facility]) Diagnostic Findings Right knee: X-rays of her right knee demonstrate that she has a varus knee. She is bone on bone in the medial compartment with some mild bone loss. She is also bone on bone in the patellofemoral joint. She has a varus knee. Opposite knee she has a well-aligned [employer] Persona total knee replacement. No lucencies or loosening.
[~2020-10-07 10:34] MED LIST changes: +BUPIVACAINE 0.5 % 5 MG/1 ML MPF 30ML VIAL ONE; +BUPIVACAINE 0.5 % 5 MG/1 ML PF 10ML VIAL ONE; -CEFAZOLIN 2000MG 2,000 MG/15 ML SYR IV SCH; -EPINEPHrine INJ 1 MG/ML AMP ONE; +GABAPENTIN 300 MG CAP PO SCH; +LACTATED RINGER'S 1,000 ML IV SCH; -LR 15ML/HR IV SCH; +LR 500ML BOLUS IV SCH; -ROPIVACAINE 0.5% 5 MG/ML 30 ML VIAL ONE; +ROPIVACAINE 0.5% HCL/PF 150 MG, BUPIVACAINE 0.75% MPF 20 ML, EPINEPHrine 30MG/30ML (OR ... INFIL SCH; -SCOPOLAMINE 1.5 MG TDSY TD SCH; +TRANEXAMIC ACID 1,000 MG **IV Intra-op IV SCH; +TRANEXAMIC ACID 1,000 MG **IV Pre-op IV SCH; +ceFAZolin 2000MG 2,000 MG/15 ML SYR IV SCH; -cloNIDine HCL 100 MCG/ML SYR ONE
[2020-10-07] MEDS ORDERED: MIDAZOLAM HCL 1 MG/ML 2ML VIAL ONE (12:32)
[2020-10-07] MEDS ORDERED: fentaNYL citrate 100 MCG/2 ML VIAL ONE (12:32)
[2020-10-07] MEDS ORDERED: ORTHO JOINT ANESTHETIC ONE (12:53)
--- NOTE | 2020-10-07 12:57 | History & Physical Bridge Note ---
Date of Service October 07, 2020 History & Physical Bridge Note I have examined the patient, reviewed the History & Physical and in the interval since the performance of the History & Physical I have noted the following changes of clinical significance: no changes noted
[2020-10-07] MEDS ORDERED: PROPOFOL IV EMULSION 10 MG/ML 20 ML VIAL IV ONE ×3 (13:24→14:18)
[2020-10-07] MEDS ORDERED: DEXAMETHASONE SOD INJ 4 MG/ML VIAL ONE (13:24)
[2020-10-07] MEDS ORDERED: LIDOCAINE 2% 2 ML VIAL/AMP(20MG/ML) INFIL ONE (13:24)
[2020-10-07] MEDS ORDERED: ONDANSETRON INJ 2 MG/ML 2 ML VIAL ONE (13:24)
--- NOTE | 2020-10-07 15:08 | Operative Report ---
Post Operative Report Pre & Post Diagnosis Operation Date: 10/07/20 12:55 Pre-Op Diagnosis: Osteoarthritis Right Knee Post-Op Diagnosis: Osteoarthritis Right Knee I identified the patient and participated in the time-out.: Yes Procedure Operation Date: 10/07/20 12:55 Actual Procedures p Right Total Knee Arthroplasty - Fady Gómez MD Surgeon Fady Gómez MD Ground Control Approach Technician Mark GOINS Estimated Blood Loss 5 Findings Consistent with Post-Op Diagnosis Specimens Bone cuts Drains 2 Hemovac Anesthesia Type MAC Spinal Regional Complications none Disposition Disposition: Recovery Room Indications 65-year-old female with end-stage osteoarthritis right knee. History of arthroscopic surgery knee in the past. Patient has progressive osteoarthritis [id number] medial compartment advanced patellofemoral osteoarthritis as well. Patient has successful left knee replacement and wants proceed with right knee replacement. Description of Procedure Patient was taken to the operating room placed supine on the operating table and anesthetized under spinal MAC regional anesthesia. Exam under anesthesia demonstrated 0 through 120 degrees range of motion no instability varus knee moderate effusion. A pneumatic tourniquet was placed about the thigh of the right lower extremity. The right lower extremity was prepped and draped in usual fashion. The leg was elevated exsanguinated with an Esmarch bandage and the pneumatic was raised to 325 mm mercury. An anterior incision was made across the right knee. The skin was incised longitudinally subcutaneous flaps were elevated and an incision was made through the medial retinaculum extending up into the mid third of the quadriceps tendon and extended down to the medial tibial tubercle. Intra-articular findings demonstrated tricompartmental osteoarthritis mainly in the medial compartment and patellofemoral joint with [id number] medial compartment and large patellar osteophytes. There is moderate synovitis.. The knee was exposed by excising the infrapatellar fat pad, excising the meniscal remnants and anterior cruciate ligament. Any inflamed synovial tissue was resected. The fat pad over the anterior femur was resected for placement of the component in that area. The lateral synovial bands were release. The femur was exposed. The custom femoral cutting block was pinned in position. The distal femoral cutting block was applied. The distal femoral cut was made with the oscillating saw. The size 6, 4-in-1 cutting block was placed. The anterior and posterior chamfer cuts were made. The knee was extended and a subperiosteal peel lateral release was performed around the patella. The patella width was measured and width was reproduced using freehand cut technique. The 35 millimeter symmetrical patella was used. 3 drill holes are made for the pegs. The tibia was exposed. A custom tibial cutting block was positioned and drill holes were made for the cutting guide. Cutting guide was placed and the proximal cut was made with the oscillating saw. All osteophytes were resected. The lamina stone spreader operator was used to assess ligamentous balance and the ligaments were balanced in extension and flexion. The tibia was reexposed and measured for a size D tibial component. This was externally rotated in line with the tibial tubercle and the fixation pins were drilled. The proximal tibia was fashioned with the drill and punch. The size 6 CR femoral trial was inserted. The trial MC inserts were used. The 10 mm insert gave balanced ligaments through full range of motion. The patella tracked centrally. the trials were removed. The orthomix anesthetic cocktail was injected per protocol. The knee was then copiously irrigated with pulsatile lavage saline solution. The final components were cemented with Refobocin cement. The final components were [employer] persona size right 6 standard CR femoral component, D right tibial component, 10 mm MC polyethylene, 35 symmetrical patella. After the cement cured with the knee in full extension the Betadine soak was used per protocol. The knee joint was copiously irrigated with pulsatile lavage saline solution. 2 drains were brought out laterally and connected to a Hemovac. The quadriceps tendon and medial retinaculum were closed with interrupted [id number] #1 Vicryl sutures. The knee was taken through a full range of motion and repair was secure. The subcutaneous tissues were closed with 2-0 Vicryl sutures and skin was closed with rui. Silverlon sterile dressing was applied and the patient tolerated the procedure well. Mark GOINS my physician or assistant, assisted in soft tissue retraction instrument management leg positioning the closure and will participate in the postoperative care of the patient. I attest to the content of the Intraoperative Record and any orders documented therein. Any exceptions are noted below.
--- NOTE | 2020-10-07 16:05 | XRay Report ---
XR knee RT 1 or 2V routine CLINICAL HISTORY: Postoperative evaluation. COMPARISON: None FINDINGS: Alignment of the total right knee arthroplasty is anatomic. There is no periprosthetic fra cture or unexpected radiopaque foreign body. There are drains and skin rui. IMPRESSION: Expected findings following total right knee arthroplasty. ACT 112: Negative or not required by law. Electronically signed by: Jonatan Lofton M.D. 10/07/2020 4:04 PM
[2020-10-07] MEDS ORDERED: ATROPINE SULFATE 0.1 MG/ML 10ML SYR IV PRN (16:09)
[2020-10-07] MEDS ORDERED: ePHEDrine sulfate 50 MG/ML AMP IV PRN (16:09)
--- NOTE | 2020-10-07 16:09 | Anesthesiology Progress Note ---
Date of Service October 07, 2020 Anesthesia Post Procedure Vital Signs Vital Signs: Temp Pulse Pulse Resp BP Pulse Ox 10/07/20 16:00 73 14 125/72 94 10/07/20 15:50 68 12 102/68 99 10/07/20 15:40 69 12 119/68 99 10/07/20 15:32 37.2 C 74 18 106/63 99 10/07/20 11:45 36.5 C 70 18 130/75 95 10/07/20 10:58 37 C 80 18 148/81 H 95 Transfer of Care Handoff Completed per policy Notes Mental Status: alert / awake / arousable and participated in evaluation Patient Amnestic to Procedure: Yes Nausea / Vomiting: adequately controlled Pain: adequately controlled Airway Patency, RR, SpO2: stable & adequate BP & HR: stable & adequate Hydration State: stable & adequate Anesthetic Complications: no major complications apparent and Pt Satisfied with anesthetic care
--- NOTE | 2020-10-07 16:53 | Anesthesiology Progress Note ---
Date of Service October 07, 2020 Anesthesia Post Procedure Vital Signs Vital Signs: Temp Pulse Pulse Resp BP Pulse Ox 10/07/20 16:40 67 12 112/66 97 10/07/20 16:30 66 12 118/67 96 10/07/20 16:20 36.5 C 67 14 114/65 96 10/07/20 16:10 72 14 126/67 93 10/07/20 16:00 73 14 125/72 94 10/07/20 15:50 68 12 102/68 99 10/07/20 15:40 69 12 119/68 99 10/07/20 15:32 37.2 C 74 18 106/63 99 10/07/20 11:45 36.5 C 70 18 130/75 95 10/07/20 10:58 37 C 80 18 148/81 H 95 Transfer of Care Handoff Completed per policy Notes Mental Status: alert / awake / arousable and participated in evaluation Patient Amnestic to Procedure: Yes Nausea / Vomiting: adequately controlled Pain: adequately controlled Airway Patency, RR, SpO2: stable & adequate BP & HR: stable & adequate Hydration State: stable & adequate Anesthetic Complications: no major complications apparent and Pt Satisfied with anesthetic care
[2020-10-07] MEDS ORDERED: MAGNESIUM HYDROXIDE SUSP 30 ML UDC PO PRN (16:54)
[2020-10-07] MEDS ORDERED: HYDROmorphone INJ 0.5 MG/0.5 ML SYR IV PRN (16:54)
[2020-10-07] MEDS ORDERED: traMADol HCL 50 MG TABLET PO PRN (16:54)
[2020-10-07] MEDS ORDERED: ONDANSETRON INJ 2 MG/ML 2 ML VIAL IV PRN (16:54)
[2020-10-07] MEDS ORDERED: bisacodyL 10 MG SUPP PR PRN (16:54)
[2020-10-07] MEDS ORDERED: METOCLOPRAMIDE HCL INJ 5 MG/ML 2 ML VIAL IV PRN (16:54)
[2020-10-07] MEDS ORDERED: NALOXONE HCL 0.4 MG/1 ML VIAL/CARP IV PRN (16:54)
[2020-10-07] MEDS: SODIUM CHLORIDE 0.9% 1000ML 1,000 ML IV SCH (17:04)
[2020-10-07] MEDS: DOCUSATE SODIUM 100 MG CAP PO SCH (19:35)
[2020-10-07] MEDS: HYDROXYUREA 500 MG CAP PO SCH (19:35)
[2020-10-07] MEDS: SENNA 8.6 MG TAB PO SCH (19:36)
[2020-10-07] MEDS: FAMOTIDINE 20 MG TAB PO SCH (19:36)
[2020-10-07] MEDS: PRAVASTATIN SOD 10 MG TAB PO SCH (19:36)
[2020-10-07] MEDS: ACETAMINOPHEN 500 MG TAB PO SCH (22:18)
[2020-10-07] MEDS: ceFAZolin 2000MG 2,000 MG/15 ML SYR IV SCH (22:18)
[2020-10-08] MEDS: ACETAMINOPHEN 500 MG TAB PO SCH ×3 (05:57→19:36)
[2020-10-08] MEDS: ceFAZolin 2000MG 2,000 MG/15 ML SYR IV SCH (05:57)
[2020-10-08] MEDS: SODIUM CHLORIDE 0.9% 1000ML 1,000 ML IV SCH (06:06)
[2020-10-08 06:09] LABS: Hematocrit (blood only) 36.4 % (37-47); Hemoglobin 11.3 g/dL (12.0-16.0); Mean Corpuscular Volume 96.6 fL (80-100); Mean Platelet Volume 10.9 fL (7.4-10.4); Platelet Count 444 K/uL (130-400); RDW Standard Deviation 52.7 fL (36.4-46.3); Red Blood Count 3.77 M/uL (4.2-5.4)
[2020-10-08 06:33] LABS: BUN Creatinine Ratio 23.2 (10-20); Calcium 8.2 mg/dl (8.5-10.1); Est GFR (African American) 62.2 ml/min; Est GFR (Non-African American) 53.7 ml/min
--- NOTE | 2020-10-08 07:17 | Orthopedic Progress Note ---
Date of Service October 08, 2020 Assessment & Plan (1) S/P total knee arthroplasty: Plan: POD#1 Right TKA -Pain management as written -DVT prophylaxis-SCDs, TEDs, ASA, Xarelto -PT/OT -AM labs-mild leukocytosis likely reactive due to surgical stress/perioperative steroids. Hgb 11.3 this am from 12.5 preop due to surgical loss vs dilutional. -D/C planning-plan on outpatient PT post discharge. Plan on discharge likely tomorrow. Admission and Anticipated Discharge Date Admission Date: October 07, 2020 Supervising Physician Co-Signing Physician Notes Patient seen and examined. Agree with BUSTER Berman's note as above. She is doing extremely well. Pain is well controlled. She is ambulating and even doing steps with therapy. Plan for discharge home tomorrow. Subjective Patient is POD#1 right TKA. Doing well this morning. Not having much pain currently. No other complaints. Denies chest pain, sob, dizziness, headache, fever/chills. Review of Systems Review of Systems: All systems reviewed & are unremarkable except as noted in Subjective Physical Exam Constitutional: well developed and well nourished; no acute distress Musculoskeletal: Right knee dressing is c/d/i. Hemovac on suction. Toes mobile with good dorsiflexion. Able to do a SLR. No calf tenderness. Distally n/v status and sensation intact. Results & Data ([facility]) Vital Signs (Past 12 Hours) Vital Signs Temp Pulse Resp BP Pulse Ox 10/08/20 04:16 36.6 C 72 16 115/68 96 10/07/20 22:04 37.3 C 89 16 126/72 95 10/07/20 20:13 37.1 C 87 17 120/70 95 Laboratory Results H & H 10/08/20 Range/Units 05:29 Hgb 11.3 L (12.0-16.0) g/dL Hct 36.4 L (37-47) % (1) S/P total knee arthroplasty Laterality: right Qualified Code(s): Z96.651 - Presence of right artificial knee joint
[2020-10-08] MEDS: DOCUSATE SODIUM 100 MG CAP PO SCH ×2 (08:05→19:37)
[2020-10-08] MEDS: TRIAMTERENE/HCTZ 37.5/25MG TAB PO SCH (08:05)
[2020-10-08] MEDS: PANTOprazole 40 MG TAB PO SCH (08:05)
[2020-10-08] MEDS: allopurinoL 100 MG TAB PO SCH (08:05)
[2020-10-08] MEDS: amLODIPine BESYLATE 5 MG TAB PO SCH (08:05)
[2020-10-08] MEDS: FLUoxetine HCL 20 MG CAP PO SCH (08:05)
[2020-10-08] MEDS: RIVAROXABAN 10 MG TABLET PO SCH (08:06)
[2020-10-08] MEDS: MULTIVITAMIN TAB PO SCH (08:06)
--- NOTE | 2020-10-08 10:45 | Hospitalist Consultation ---
Date of Consultation October 08, 2020 Assessment & Plan (1) S/P total knee arthroplasty: - Doing well post-operatively; hemodynamically stable - Surgical management per primary team (2) Polycythemia vera: - Appears baseline Plts 400-600 - Was given instructions by her treating provider in regards to her Hydroxyurea and Ruxolitinib - She will be on Xarelto for DVT prophylaxis per her treating providers recommendations and can continue her PV medications (3) Hypertension: - STABLE - Continue Amlodipine 10 mg daily and Triamterene/HCTZ daily (4) Hyperlipidemia: - Continue Pravastatin 10 mg HS - Pt is stable in her chronic medical conditions; Pt was given instructions in regards to polycythemia vera and her chronic medications/anti- coagulation; No medical contraindication for discharge per primary service - Hospitalists will monitor peripherally Supervising Physician Co-Signing Physician Notes Patient seen and examined with Susana Ruvalcaba PA-C. I agree with her exam findings, review of systems, assessment and plan. I personally reviewed the lab work and imaging as well. patient doing well, right knee pain is about a 5/10 eating/drinking well, no dyspnea, no fever, no chest pain - Polycythemia vera: Xarelto for prophylaxis, continue home regimen, follows with test engineering intern - s/p R TKA: labs in AM, encourage activity, d/c planning per ortho History of Present Illness Reason for Consultation: Medical Management Attending Physician: Fady Gómez MD History of Present Illness Ms. Pablo is a 65 y/o female with PMHx of Polycythemia Vera, HTN, HLD, SANDRA, and Anxiety who is S/P R TKA on 07 October. She is doing well post-operatively. Having some pain in the knee but reports improvement with pain regimen. She has not had any cardiac history of NH, CAD, or CHF. She has never had a blood clot or any issues with bleeding. She was given directions by her test engineering intern in regards to her Hydroxyurea and Ruxolitinib. Her platelets are 444 today. Recommendations given for Xarelto post-operatively. Allergies Allergy/AdvReac Type Severity Reaction Status Date / Time codeine AdvReac Mild NAUSEA/VOMI Verified 09/04/20 10:38 TING SEASONAL Allergy Unknown sneezing, Uncoded 09/04/20 10:38 eyes irritated, runny nose Home Medications Medication Instructions Recorded Confirmed Type aspirin 81 mg tablet,delayed 81 mg PO QPM 03/07/18 10/07/20 History release (Aspirin Low Dose) ruxolitinib 10 mg tablet (Jakafi) 10 mg PO QPM #90 tab 10/10/18 10/07/20 Rx tramadol 50 mg tablet 50 mg PO Q8H PRN #30 tab 10/21/19 10/07/20 Rx allopurinol 100 mg tablet 200 mg PO QAM #180 tab 12/20/19 10/07/20 Rx triamterene 37.5 1 tab PO QAM #90 tab 03/13/20 10/07/20 Rx mg-hydrochlorothiazide 25 mg tablet omeprazole 20 mg capsule,delayed 20 mg PO QAM #90 cap 05/25/20 10/07/20 Rx release hydroxyurea 500 mg capsule 500 mg PO HS 07/07/20 10/07/20 History acetaminophen 500 mg tablet 1,000 mg PO Q8H PRN 09/04/20 10/07/20 History famotidine 20 mg tablet (Pepcid AC) 20 mg PO HS 09/04/20 10/07/20 History fluoxetine 20 mg tablet 20 mg PO QAM #90 tab 09/11/20 10/07/20 Rx pravastatin 10 mg tablet 10 mg PO HS #90 tab 09/11/20 10/07/20 Rx amlodipine 10 mg tablet (Norvasc) 10 mg PO QAM #90 tab 09/24/20 10/07/20 Rx Patient History Medical History Anxiety Fibromyalgia GERD (gastroesophageal reflux disease) Well controlled and stable Gout No recent issues Hyperlipidemia Hypertension Numbness and tingling in both hands r/t polycythemia SANDRA (obstructive sleep apnea) Hx of sleep study prior to gastric sleeve surgery- mild SANDRA- no device- has lost weight since that time Osteoarthritis Polycythemia vera On Jakafi, follows with [facility] hematology (Dr Fox) Prediabetes Seasonal allergies Sensorineural hearing loss of both ears Tinnitus, bilateral Surgical History History of x3 History of colonoscopy History of dilatation and curettage History of esophagogastroduodenoscopy (EGD) History of tonsillectomy History of total knee replacement Left Hx of arthroscopy of right knee Hx of bariatric surgery x2 - Lap bands insertion and removal Nausea and vomiting after administration of anesthetic agent S/P shoulder replacement 02/27/19 right S/P RADHA (total abdominal hysterectomy) Family History Father FHx: lung cancer exposure to asbestos and hx of a smoker Other Family history non-contributory Social History Smoking Status: Never smoker Second Hand Exposure: No; Do You Dip or Chew Tobacco: No; Tobacco Cessation Education Requested by Patient: No Hx Alcohol Use: Yes Alcohol type: wine Hx Substance Use: No Preferred Language: Cook Islander Communication Ability: Effective Demographic Analyst Required: No Beliefs That Will Affect Care: None marital status: Current Living Situation: Spouse Other Information That Helps Us Care for You: No Feels Safe at Home: Yes Safety Concerns: Feels Safe At This Time Assistive Devices: Glasses and Walker Review of Systems Review of Systems: REVIEW OF SYSTEMS General/Constitutional: Denies fever/chills ENT: Denies visual changes, nasal drainage, hearing loss, sore throat, trouble swallowing Cardiovascular: Denies chest pain, palpitations, edema Respiratory: Denies cough, sputum, SOB, wheezing, orthopnea GI: Denies nausea, vomiting, abdominal pain, constipation, diarrhea, melena/hematochezia : Denies dysuria Musculoskeletal: + R Knee (improves with pain regimen); Denies other joint/muscle aches, weakness, swelling Neurologic: Denies dizziness/lightheadedness, numbness/tingling Hematologic/Lymphatic: Denies bleeding/clotting abnormalities Skin: Denies rash, itch, new skin changes, easy bruising Physical Exam Physical Exam: PHYSICAL EXAM General Appearance: WDWN in NAD who is A&O x 3 HEENT: Head is normocephalic/atraumatic; Hearing grossly intact; Mucous membranes moist; Pharynx negative for exudate/lesions Neck: Supple; Trachea midline; Neg JVD Heart: RRR with no M/G/R Lungs: CTA in all lung wasserman bilaterally; Respirations unlabored; Neg accessory muscle use Abdomen: Soft, non-tender, non-distended; Positive BS x 4 quadrants; Neg organomegaly Extremities: Capillary refill < 2 seconds; Neg cyanosis or edema; R knee with ANA and drain present Neurological: Speech clear; Gross motor/sensory function intact; Neg focal neurologic deficits Psychiatric: Appropriate mood/affect Skin: Normal Color; Warm/Dry; Neg rashes, ecchymosis, lacerations/ulcerations Results & Data Results & Data ([facility]) Vital Signs (Past 12 Hours) Vital Signs Temp Pulse Resp BP Pulse Ox 10/08/20 07:00 36.9 C 76 20 120/64 94 10/08/20 04:16 36.6 C 72 16 115/68 96 PG Care Time/CCT Total # of Minutes Spent Total Time Spent with Patient: Total time spent is greater than 50% in coordination of care (as documented) at patient's floor/unit and/or counseling patient: Coding Level of Care Code 15002 Inpt Consult Level 2 Diagnoses S/P total knee arthroplasty Z96.651 Laterality: right Hyperlipidemia E78.5 Hypertension I10 Polycythemia vera D45 (1) S/P total knee arthroplasty Laterality: right Qualified Code(s): Z96.651 - Presence of right artificial knee joint
[2020-10-08] MEDS: oxyCODONE HCL IR 5 MG TAB (IMMEDIATE RELEASE) PO PRN ×2 (13:32→19:36)
[2020-10-08] MEDS: HYDROXYUREA 500 MG CAP PO SCH (19:35)
[2020-10-08] MEDS: SENNA 8.6 MG TAB PO SCH (19:37)
[2020-10-08] MEDS: PRAVASTATIN SOD 10 MG TAB PO SCH (19:37)
[2020-10-08] MEDS: FAMOTIDINE 20 MG TAB PO SCH (19:38)
[2020-10-08] MEDS ORDERED: ASPIRIN 81 MG ECTAB PO SCH (21:00)
[2020-10-09] MEDS: oxyCODONE HCL IR 5 MG TAB (IMMEDIATE RELEASE) PO PRN ×3 (00:33→09:24)
[2020-10-09] MEDS: ACETAMINOPHEN 500 MG TAB PO SCH (04:42)
--- NOTE | 2020-10-09 07:06 | Orthopedic Progress Note ---
Date of Service October 09, 2020 Assessment & Plan (1) S/P total knee arthroplasty: Plan: POD#2 Right TKA -Pain management as written -DVT prophylaxis-SCDs, TEDs, ASA, Xarelto -PT/OT -D/C planning-plan on outpatient PT post discharge. Plan on discharge home today Admission and Anticipated Discharge Date Admission Date: October 08, 2020 Subjective Patient is POD#2 right TKA. Doing well this morning. Pain controlled on oral medications. No other complaints. Denies chest pain, sob, dizziness, headache, fever, chills. Review of Systems Review of Systems: All systems reviewed & are unremarkable except as noted in Subjective Physical Exam Physical Exam: Right knee Silverlon dressing c/d/i, some mild drainage in window. Dressing to hemovac site intact. No calf tenderness. Toes mobile with good dorsiflexion. Able to do a SLR. Distally n/v status and sensation intact. Constitutional: well developed and well nourished; no acute distress Results & Data ([facility]) Vital Signs (Past 12 Hours) Vital Signs Temp Pulse Resp BP Pulse Ox 10/09/20 06:13 36.7 C 63 17 120/74 94 10/08/20 23:18 37.0 C 63 17 116/73 95 (1) S/P total knee arthroplasty Laterality: right Qualified Code(s): Z96.651 - Presence of right artificial knee joint
[2020-10-09] MEDS: MULTIVITAMIN TAB PO SCH (09:25)
[2020-10-09] MEDS: amLODIPine BESYLATE 5 MG TAB PO SCH (09:25)
[2020-10-09] MEDS: FLUoxetine HCL 20 MG CAP PO SCH (09:25)
[2020-10-09] MEDS: allopurinoL 100 MG TAB PO SCH (09:26)
[2020-10-09] MEDS: DOCUSATE SODIUM 100 MG CAP PO SCH (09:26)
[2020-10-09] MEDS: TRIAMTERENE/HCTZ 37.5/25MG TAB PO SCH (09:26)
[2020-10-09] MEDS: RIVAROXABAN 10 MG TABLET PO SCH (09:27)
[2020-10-09] MEDS: PANTOprazole 40 MG TAB PO SCH (09:27)
--- NOTE | 2020-10-12 18:35 | Discharge Summary ---
Date of Service October 12, 2020 Admission HPI Per Admitting Provider 65 year old female with PMHx significant for HTN, Polycythemia vera, high cholesterol, SANDRA, anxiety presents with ongoing right knee pain. Pain interferes with her ability to carry out normal daily activities. She has failed conservative measures including injections. She has previous left knee replacement and has done well. She would like to proceed with right knee replacement. Patient denies headaches, sweats, fevers, chills, double vision, blurred vision, cough, sore throat, dysphagia, chest pain, sob, wheezing, n/v/d/c, numbness, tingling, fatigue, urinary symptoms, mood disorders. ROS positive for right knee pain and stiffness. Admission Exam Per Admitting Provider Constitutional: well developed and well nourished; no acute distress Eyes: PERRL, conjunctivae normal, anicteric sclerae ENMT: external ear and nose normal, oropharynx normal Neck: trachea midline, no thyromegaly Respiratory: normal respiratory effort, lungs clear to auscultation Cardiovascular: RRR, no murmur, no edema Musculoskeletal: Right knee : Tenderness medial joint line. Stable to valgus and varus stress, positive Marga's. Mild effusion. ROM 0-130 degrees. Varus alignment Skin: no rashes, warm and dry Neurologic: patellar DTR's 2+ bilat, sensation intact Psychiatric: A+Ox3, euthymic affect Principal Diagnosis Right knee osteoarthritis Discharge Exam Constitutional well developed and well nourished; no acute distress Eyes PERRL, conjunctivae normal, anicteric sclerae ENMT external ear and nose normal, oropharynx normal Neck trachea midline, no thyromegaly Respiratory normal respiratory effort, lungs clear to auscultation Cardiovascular RRR, no murmur, no edema Skin no rashes, warm and dry Neurologic patellar DTR's 2+ bilat, sensation intact Psychiatric A+Ox3, euthymic affect Discharge Data Allergies Allergy/AdvReac Type Severity Reaction Status Date / Time codeine AdvReac Mild NAUSEA/VOMI Verified 09/04/20 10:38 TING SEASONAL Allergy Unknown sneezing, Uncoded 09/04/20 10:38 eyes irritated, runny nose Consultations 10/02/20 13:49 Consult Hospitalist Routine Procedures Performed Operation Date: 10/07/20 12:55 Actual Procedures p Right Total Knee Arthroplasty - Fady Gómez MD Ordered Studies 10/07/20 05:00 US - OR guided needle placemen Routine Hospital Course (1) S/P total knee arthroplasty: Patient presented for same day admission following right total knee arthroplasty on 10/07/20. She tolerated procedure well. The Patient had an uneventful hospital course. Post-operatively, her activity was progressed and well tolerated. They participated in PT with ambulation distance of 330 and 3300 feet on POD2. ROM of operative knee reached 87 degrees. Labs remained stable- lowest hemoglobin recorded: 11.3. Dr. Gary Apodaca of medical service was consulted for medical management during admission. Pain controlled on oral medications. Please refer to daily progress notes and PT notes for complete details. After exam on 10/09/20, patient was felt to be stable for discharge home with plans on attending outpatient PT. Patient will f/u in the office in about 2 weeks for further evaluation including x-rays and incision check, sooner if having any issues or concerns. POD#2 Right TKA -Pain management as written -DVT prophylaxis-SCDs, TEDs, ASA, Xarelto -PT/OT -D/C planning-plan on outpatient PT post discharge. Plan on discharge home today Total Time Total Time Spent Total Time Spent (In Minutes): 20 Discharge Plan Discharge Items Patient Disposition: Home - Self-Care Reason For Visit: Osteoarthritis Right Knee Discharge Diagnosis: Right knee osteoarthritis Activity: Per Instructions section Non-emergency contact: Surgeon Call non-emergency contact if: you have any medication questions, your pain is worsening, your pain is concerning for you, you have a fever, your temperature is above 101, your wound has increased redness and your wound has increased drainage Follow-up/Referrals: New Hilton DO [Primary Care Provider] - 10/15/20 3:00 pm Diet: Regular Addtl Attending Provider Instructions: ACTIVITY RECOMMENDATIONS: SELF CARE INSTRUCTIONS AFTER TOTAL KNEE REPLACEMENT A. You may need to continue a physical therapy program after discharge from the hospital. There are several options available to you. Your doctor will assist you in selecting the best one for you. 1. An out-patient facility 2 to 3 times a week for therapy or home therapy. 2. Continue working on all exercises taught to you in the hospital. Your goals should be to increase bending of your knee to 90 degrees and beyond and to fully straighten your knee. B. You may progress at your own pace from walking with a walker or crutches to a cane; then to no assistive devices. C. Make walking a part of your daily routine. Be up as much as comfortable with rest periods throughout the day. Rest with leg elevation is very important. Use the ice wrap frequently for the first 3-4 weeks. D. There are no restrictions on activities. You may ride in a car, shop, participate in foundry worker and all social activities. E. Wear the long elastic stockings (WILIAN hose) 20 hours a day for 2 weeks after surgery. They can be removed several times a day for laundering and for a bath. F. You may shower, no tub baths until cleared by your doctor. SPECIAL CARE INSTRUCTIONS: VERY IMPORTANT TO READ AND REVIEW A. There are a few signs you need to watch for after you are home. Call [facility] if you notice any of the followin. Increased severe knee pain. Some pain is expected especially when you exercise. 2. Increased swelling in your leg or knee; pain or swelling of the calf muscle in either lower leg. 3. Any fluid drainage from the incision. 4. Shortness of breath or chest pain. B. Please call [facility] at if you have any concerns or questions about your operation or recovery. The doctor or his nurse will return your call promptly. C. You must take antibiotics before dental work, bladder, bowel or other surgery. Your doctor will provide you with a permanent care to carry describing this precaution. IMPORTANT: * REMEMBER TO TAKE ASPIRIN, 81 MG, TWICE DAILY FOR 4 WEEKS UNLESS OTHERWISE DIRECTED. THIS IS YOUR BLOOD THINNER. * HIGH RISK PATIENTS MAY BE PRESCRIBED A STRONGER BLOOD THINNER. THIS WILL BE PROVIDED AT DISCHARGE. * CALL IF INCREASED PAIN, REDNESS, DRAINAGE OR FEVER GREATER THAT 101. * WEAR WILIAN HOSE 20 HOURS PER DAY FOR 2 WEEKS. This is a large adhesive bandage that contains silver ions. This helps your incision heal by fighting off bacteria and protecting it from the outside environment. You are permitted to shower with this dressing. This will remain on your incision for 7 days and then should be removed. Some visible blood or drainage through the dressing window is normal. If there is significant drainage or leaking noted before the 7 days notify your doctor's office imm ediately. Once removed, keep incision clean and dry. If there is any drainage or redness noted, please call your surgeon. IF INCISION IS LEAKING THROUGH DRESSING, CALL THE OFFICE . FOLLOW UP VISIT: If appointment is not already scheduled: Please call [facility] to make a follow-up appointment for 2 weeks after your surgery at . Stand-Alone Forms: [facility], Opioid Pain Management, Smoking Cessation Medications and DC Order Prescriptions: New Xarelto 10 mg Tablet 10 mg PO DAILY Qty: 30 RF: 0 acetaminophen [Tylenol Extra Strength] 500 mg Tablet 1,000 mg PO Q8 Qty: 60 RF: 0 oxycodone 5 mg Tablet 5 - 10 mg PO .Q4h-6h MDD 6 PRN (Reason: pain) Qty: 30 RF: 0 Continued allopurinol 100 mg tablet 200 mg PO QAM Qty: 180 RF: 3 triamterene-hydrochlorothiazid 37.5-25 mg tablet 1 tab PO QAM Qty: 90 RF: 3 omeprazole 20 mg capsule,delayed release(DR/EC) 20 mg PO QAM Qty: 90 RF: 2 fluoxetine 20 mg tablet 20 mg PO QAM Qty: 90 RF: 0 amlodipine [Norvasc] 10 mg tablet 10 mg PO QAM Qty: 90 RF: 0 pravastatin 10 mg tablet 10 mg PO HS Qty: 90 RF: 3 hydroxyurea 500 mg capsule 500 mg PO HS RF: 0 Jakafi 10 mg tablet 10 mg PO QPM Qty: 90 RF: 3 aspirin [Aspirin Low Dose] 81 mg Tablet,Delayed Release (Dr/Ec) 81 mg PO QPM RF: 0 famotidine [Pepcid AC] 20 mg tablet 20 mg PO HS RF: 0 Discontinued tramadol 50 mg tablet 50 mg PO Q8H PRN (Reason: pain) Qty: 30 RF: 0 acetaminophen 500 mg tablet 1,000 mg PO Q8H PRN (Reason: Pain) RF: 0 Discharge Orders: Discharge Order (Routine); Ordered 10/09/20 Ordered By: Blair Muñoz/Other Patient Handouts: Preventing Deep Vein Thrombosis Admission Data Admit Date/Time: 10/08/20 09:40 Attending Provider: Fady Gómez Admit Provider: Fady Gómez Primary Care Provider: [place] Hilton Other Providers: Gary Apodaca Other Interventions: Discharge Summary Assessment (RN) Last Done: 10/09/20 11:09
== END 2020-10-09 12:31 | disposition home or self-care (01) | DRG 470 ==
LOC: 3N 10:34 → ASU 10:34
DX: F41.9 Anxiety disorder, unspecified; G47.33 Obstructive sleep apnea (adult) (pediatric); Z79.82 Long term (current) use of aspirin; M17.11 Unilateral primary osteoarthritis, right knee; D45 Polycythemia vera; E78.5 Hyperlipidemia, unspecified; I10 Essential (primary) hypertension

== ENCOUNTER 2024-03-06 08:16 | Observation (INO) ==
--- NOTE | 2024-02-16 13:46 | PAT Medication Instructions ---
Medication Instructions Date of Service February 16, 2024 Home Medications Medication Instructions Recorded hydroxyzine HCl 10 mg tablet 10 mg PO TID PRN itching #180 tabs 12/14/22 amlodipine 10 mg tablet (Norvasc) 10 mg PO QAM #90 tabs 08/08/23 pravastatin 10 mg tablet 10 mg PO HS #90 tabs 10/16/23 allopurinol 300 mg tablet 300 mg PO QAM #90 tabs 01/14/24 fluoxetine 20 mg tablet 20 mg PO QAM #90 tabs 01/14/24 triamterene 37.5 1 tab PO QAM #90 tabs 01/14/24 mg-hydrochlorothiazide 25 mg tablet aspirin 81 mg tablet,delayed release (Edwin Low Dose Aspirin) 81 mg PO HS calcium 600 mg (as carbonate)-vitamin D3 12.5 mcg (500 unit) capsule (Calcium with Vit D3) 2 cap PO QAM hydroxyurea 500 mg capsule 500 mg PO HS hydroxyzine HCl 10 mg tablet 10 mg PO TID PRN itching cetirizine 10 mg tablet (Zyrtec) 10 mg PO QAM meloxicam 7.5 mg tablet 7.5 mg PO HS pantoprazole 40 mg tablet,delayed release 40 mg PO BID amlodipine 10 mg tablet (Norvasc) 10 mg PO QAM pravastatin 10 mg tablet 10 mg PO HS allopurinol 300 mg tablet 300 mg PO QAM fluoxetine 20 mg tablet 20 mg PO QAM triamterene 37.5 mg-hydrochlorothiazide 25 mg tablet 1 tab PO QAM acetaminophen 500 mg tablet (Tylenol Extra Strength) 500 mg PO Q8 PRN Pain ruxolitinib 5 mg tablet (Jakafi) 5 mg PO BID ASK your surgeon for instructions meloxicam 7.5 mg tablet 7.5 mg PO HS ASK your prescriber and surgeon aspirin 81 mg tablet,delayed release (Edwin Low Dose Aspirin) 81 mg PO HS hydroxyurea 500 mg capsule 500 mg PO HS ruxolitinib 5 mg tablet (Jakafi) 5 mg PO BID DO NOT take the morning of surgery calcium 600 mg (as carbonate)-vitamin D3 12.5 mcg (500 unit) capsule (Calcium with Vit D3) 2 cap PO QAM hydroxyzine HCl 10 mg tablet 10 mg PO TID PRN itching cetirizine 10 mg tablet (Zyrtec) 10 mg PO QAM triamterene 37.5 mg-hydrochlorothiazide 25 mg tablet 1 tab PO QAM Take morning of surgery With a small sip of water, OTHERWISE NOTHING TO EAT OR DRINK AFTER MIDNIGHT: pantoprazole 40 mg tablet,delayed release 40 mg PO BID amlodipine 10 mg tablet (Norvasc) 10 mg PO QAM allopurinol 300 mg tablet 300 mg PO QAM fluoxetine 20 mg tablet 20 mg PO QAM acetaminophen 500 mg tablet (Tylenol Extra Strength) 500 mg PO Q8 PRN Pain (if n eeded) Take evening before surgery hydroxyzine HCl 10 mg tablet 10 mg PO TID PRN itching (if needed) pantoprazole 40 mg tablet,delayed release 40 mg PO BID pravastatin 10 mg tablet 10 mg PO HS acetaminophen 500 mg tablet (Tylenol Extra Strength) 500 mg PO Q8 PRN Pain (if needed) Other Notes If you have any questions please call us at [phone] or [phone] or [phone] or [phone]
--- NOTE | 2024-02-21 11:31 | Anesthesiology Consultation ---
Date of Service February 21, 2024 Assessment & Plan (1) Encounter for pre-operative examination: - awaiting surgeon ordered [place] medical clearance as CXR is now read, as also noted as pending in 02/22/24 PCP note. Workload note sent. - heme/onc 01/29/24: "...will send prescription for Eliquis 2.5 mg po twice daily which I have recommended she continue for at least 2 weeks postsurgery to reduce risk of venous thrombosis. If her platelet count is not well-controlled, may have to extend that to 6 weeks postsurgery..." Patient confirmed that heme/onc advised only starting Eliquis after surgery. Chart Review Chart Review: Pending: Refer to Additional Notes / Consult section and Patient seen in Pre Admission Testing Teaching & Discussion Pre-Anesthesia Teaching/Discussion Notes: Instructed NPO after midnight before surgery, except medications with 15 cc of water. Medication instructions provided according to the PAT guidelines. History Surgery Operation Date: 03/06/24 13:05 Proposed Procedures p Left Total Shoulder Arthroplasty Reverse - Fady Gómez MD Height/Weight Height: 5 ft 5 in Weight: 89.3 kg Allergies Allergy/AdvReac Type Severity Reaction Status Date / Time codeine AdvReac Mild Nausea Verified 02/22/24 08:38 SEASONAL Allergy Unknown Sneezing, Uncoded 02/22/24 08:38 eyes irritation, runny nose Medications Home Medications Medication Instructions Recorded Confirmed Last Taken aspirin 81 mg tablet,delayed 81 mg PO HS 03/07/18 02/22/24 10/06/20 22:00 release (Edwin Low Dose Aspirin) calcium 600 mg (as 2 cap PO QAM 12/06/21 02/22/24 Unknown carbonate)-vitamin D3 12.5 mcg (500 unit) capsule (Calcium with Vit D3) hydroxyurea 500 mg capsule 500 mg PO HS 10/26/22 02/22/24 Unknown cetirizine 10 mg tablet (Zyrtec) 10 mg PO QAM 04/28/23 02/22/24 Unknown meloxicam 7.5 mg tablet 7.5 mg PO HS 04/28/23 02/22/24 Unknown pantoprazole 40 mg tablet,delayed 40 mg PO BID 04/28/23 02/22/24 Unknown release amlodipine 10 mg tablet (Norvasc) 10 mg PO QAM #90 tabs 08/08/23 02/22/24 Unknown pravastatin 10 mg tablet 10 mg PO HS #90 tabs 10/16/23 02/22/24 Unknown allopurinol 300 mg tablet 300 mg PO QAM #90 tabs 01/14/24 02/22/24 Unknown fluoxetine 20 mg tablet 20 mg PO QAM #90 tabs 01/14/24 02/22/24 Unknown triamterene 37.5 1 tab PO QAM #90 tabs 01/14/24 02/22/24 Unknown mg-hydrochlorothiazide 25 mg tablet acetaminophen 500 mg tablet 500 mg PO Q8 PRN Pain 02/15/24 02/22/24 Unknown (Tylenol Extra Strength) ruxolitinib 5 mg tablet (Jakafi) 5 mg PO BID 02/15/24 02/22/24 Unknown hydroxyzine HCl 10 mg tablet 10 mg PO TID PRN itching #180 tabs 02/22/24 Unknown Past Medical History Medical History Splenomegaly Renal cyst, left Sensorineural hearing loss of both ears Elevated liver enzymes History of COVID-19 (~2022) On anticoagulant therapy Hyperlipidemia Polycythemia vera Hx of gout Depression SANDRA (obstructive sleep apnea) Fibromyalgia Prediabetes Osteoarthritis GERD (gastroesophageal reflux disease) Anxiety Numbness and tingling in both hands Hypertension Seasonal allergies Patient denies h/o stroke, seizures, heart attack, heart failure, blood clots/DVTs or blood transfusions. Exercise / Class Metabolic Activity II 4-5 Yardwork/Stairs/Walk up hill (shortness of breath with one flight of stairs ongoing for several years-denies change or worsening-denies chest discomfort ) Past Family History Family History Father FHx: lung cancer Mother Colorectal cancer Other Family history non-contributory Denies family history of Ovarian cancer Prostate cancer Myocardial infarction Breast cancer Past Surgical History Surgical History S/P trigger finger release History of right shoulder replacement History of dilatation and curettage History of colonoscopy History of esophagogastroduodenoscopy (EGD) S/P RADHA (total abdominal hysterectomy) History of total knee replacement History of tonsillectomy Nausea and vomiting after administration of anesthetic agent Hx of arthroscopy of right knee Hx of bariatric surgery History of Past Anesthesia History No Hx of Anesthesia Complications and No Family Hx of Anesthesia Complications History of PONV History of PONV (denies needing scop patch) and Hx of Motion Sickness Social History Smoking Status: Never smoker Do You Dip or Chew Tobacco: No Hx Alcohol Use: Yes Alcohol type: wine alcohol intake frequency: holidays/special occasions only Hx Substance Use: No substance use type: does not use Review of Systems Patient denies chest pain, fever, chills, cough, wheezing, or palpitations. Physical Exam Vital Signs Vitals BP 124/82 P 73 TEMP 98.2 SP02 95% on RA RESP 19 Physical Patient resting comfortably in chair in no acute distress, alert and oriented, responding appropriately throughout visit Full cervical extension range of motion without pain TMD 3.5 finger breadths Mallampati Score 2 Dentition: intact, denies chipped or loose teeth, caps/crowns, implants or bridges Lungs: normal respiratory effort. Good air movement, clear throughout to auscultation, no adventitious breath sounds Cardiac: regular rate and rhythm, no murmurs noted Carotid arteries: negative bruit bilat Lab Results Anesthesia Preop Results Results Anesthesia Widget: WBC 8.27 K/ul (4.8-10.8) 02/21/24 Hgb 12.4 g/dl (12.0-16.0) 02/21/24 Hct 39.3 % (37.0-47.0) 02/21/24 Plt 570 K/uL (130-400) H 02/21/24 Na 140 mmol/L (136-145) 01/25/24 K 3.9 mmol/L (3.5-5.1) 01/25/24 Cl 106 mmol/L (98-107) 01/25/24 CO2 26 mmol/L (21-32) 01/25/24 BUN 22 mg/dl (6-23) 01/25/24 Creat 0.89 mg/dl (0.6-1.2) 01/25/24 Glucose Level 86 mg/dl (70-99(Fasting)) 01/25/24 PT 11.9 Seconds (9.0-12.0) 02/21/24 PTT 27 Seconds (21-31) 02/21/24 INR 1.1 (0.9-1.1) 02/21/24 Urine Color Yellow 02/21/24 Urine Appearance Clear (Clear) 02/21/24 Urine pH 6.0 (4.5-7.5) 02/21/24 Urine Specific [place] 1.009 (1.000-1.030) 02/21/24 Urine Protein Negative (Negative) 02/21/24 Urine Glucose (UA) Negative (Negative) 02/21/24 Urine Ketones Negative (Negative) 02/21/24 Urine Blood Negative (Negative) 02/21/24 Urine Nitrite Negative (Negative) 02/21/24 Urine Bilirubin Negative (Negative) 02/21/24 Urine Urobilinogen Negative (Negative) 02/21/24 Urine Leukocyte Esterase Negative (Negative) 02/21/24 Blood Type O Negative 02/21/24 Antibody Screen NEGATIVE 02/21/24 Testing Electrocardiogram Date: 02/21/24 NSR, rate 71 bpm T wave abnormality, consider anterolateral ischemia When compared with 09/10/20 EKG, PVCs are no longer present Chest X-Ray Date: 02/21/24 1. Prominent hilar shadows and bronchovascular markings at both lung wasserman. 2. No definite evidence of consolidation, cavitation, or pleural effusion. Stress Test Date: 12/05/18 MPHR 84% METS 7 Negative stress echo, nondiagnostic ECG due to not reaching target HR EF 55-60% No LV regional wall motion abnormalities Mild cLVH Mild LA dilation No significant valvular abnormalities
--- NOTE | 2024-03-04 21:41 | History & Physical Report ---
Date of Service March 04, 2024 Assessment & Plan (1) Osteoarthritis of left shoulder region: Plan: Severe glenohumeral osteoarthritis with bone loss glenoid. Patient had successful right shoulder replacement which required bio RSA technique with bone grafting glenoid. Left shoulder is amenable to wedge augmented component. Patient had CT blueprint preoperative templating with custom guide. Proceed with left reverse total shoulder replacement. Osteoarthritis type: primary Qualified Code(s): M19.012 - Primary osteoarthritis, left shoulder History of Present Illness Chief Complaint: Chronic left shoulder pain Primary Care Provider: New Hilton DO 68-year-old female with chronic left shoulder pain failed conservative management. Patient denies headaches, sweats, fevers, chills, double vision, blurred vision, cough, sore throat, dysphagia, chest pain, sob, wheezing, n/v/d/c, numbness, tingling, fatigue, urinary symptoms. ROS positive for depression, shortness of breath with activity, low back pain, acid reflux, nausea with anesthesia. Allergies Allergy/AdvReac Type Severity Reaction Status Date / Time codeine AdvReac Mild Nausea Verified 02/22/24 08:38 SEASONAL Allergy Unknown Sneezing, Uncoded 02/22/24 08:38 eyes irritation, runny nose Home Medications Medication Instructions Recorded Confirmed Type aspirin 81 mg tablet,delayed 81 mg PO HS 03/07/18 02/22/24 History release (Edwin Low Dose Aspirin) calcium 600 mg (as 2 cap PO QAM 12/06/21 02/22/24 History carbonate)-vitamin D3 12.5 mcg (500 unit) capsule (Calcium with Vit D3) hydroxyurea 500 mg capsule 500 mg PO HS 10/26/22 02/22/24 History cetirizine 10 mg tablet (Zyrtec) 10 mg PO QAM 04/28/23 02/22/24 History meloxicam 7.5 mg tablet 7.5 mg PO HS 04/28/23 02/22/24 History pantoprazole 40 mg tablet,delayed 40 mg PO BID 04/28/23 02/22/24 History release amlodipine 10 mg tablet (Norvasc) 10 mg PO QAM #90 tabs 08/08/23 02/22/24 Rx pravastatin 10 mg tablet 10 mg PO HS #90 tabs 10/16/23 02/22/24 Rx allopurinol 300 mg tablet 300 mg PO QAM #90 tabs 01/14/24 02/22/24 Rx fluoxetine 20 mg tablet 20 mg PO QAM #90 tabs 01/14/24 02/22/24 Rx triamterene 37.5 1 tab PO QAM #90 tabs 01/14/24 02/22/24 Rx mg-hydrochlorothiazide 25 mg tablet acetaminophen 500 mg tablet 500 mg PO Q8 PRN Pain 02/15/24 02/22/24 History (Tylenol Extra Strength) ruxolitinib 5 mg tablet (Jakafi) 5 mg PO BID 02/15/24 02/22/24 History hydroxyzine HCl 10 mg tablet 10 mg PO TID PRN itching #180 tabs 02/22/24 Rx Past Med/Surg History Problem List (Updated 03/04/24 @ 21:39 by Fady Gómez MD) Osteoarthritis of left shoulder region Vitamin D deficiency Post menopausal syndrome Anxiety Depression Tinnitus, bilateral Hearing loss Rotator cuff arthropathy Prediabetes (Chronic) Encounter for pre-operative examination (Chronic) Hypertension (Chronic) Hyperlipidemia (Chronic) Medical History Splenomegaly Renal cyst, left Per records Sensorineural hearing loss of both ears Per records Elevated liver enzymes Hx 2021 - resolved No current issues History of COVID-19 (~2022) 05/2022: flu symptoms, no hospitalization. resolved. On anticoagulant therapy ASA daily d/t polycythemia vera - oncologist gave patient Rx Eliquis for post-op Hyperlipidemia Polycythemia vera on chemotherapy pills Hx of gout controlled Depression SANDRA (obstructive sleep apnea) Hx of sleep study prior to gastric sleeve surgery- mild SANDRA- no device- has lost weight since that time - no retest has been since. Fibromyalgia Prediabetes diet controlled Osteoarthritis GERD (gastroesophageal reflux disease) Well controlled and stable Anxiety Numbness and tingling in both hands r/t polycythemia Hypertension controlled, stable per pt Seasonal allergies Surgical History S/P trigger finger release right hand-two fingers History of right shoulder replacement History of dilatation and curettage History of colonoscopy History of esophagogastroduodenoscopy (EGD) S/P RADHA (total abdominal hysterectomy) History of total knee replacement R/L Right TKA (10/07/20): SAB at L3-4 + regional at [facility] History of tonsillectomy Nausea and vomiting after administration of anesthetic agent denies needing scop patch Hx of arthroscopy of right knee Hx of bariatric surgery x2 - Lap bands insertion and removal History of x3 Family History Father FHx: lung cancer exposure to asbestos and hx of a smoker Mother Colorectal cancer Other Family history non-contributory Denies family history of Ovarian cancer Prostate cancer Myocardial infarction Breast cancer Social History Smoking Status: Never smoker Second Hand Exposure: No; Do You Dip or Chew Tobacco: No; Tobacco Cessation Education Requested by Patient: No Hx Alcohol Use: Yes Alcohol type: wine Alcohol Intake Frequency: 2-4 x/Month Hx Substance Use: No Preferred Language: Turkish Communication Ability: Effective Visual Impairment: Partially Limited Hearing Ability: Use of Hearing Aid [employer] Shothole Driller Required: No Beliefs That Will Affect Care: None marital status: Current Living Situation: Spouse current occupational status: retired 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 How many Children do You have: 4 Other Information That Helps Us Care for You: No Feels Safe at Home: Yes Safety Concerns: Feels Safe At This Time Dental Care, Regularly: Yes Seatbelt Use: always Assistive Devices: Glasses and Hearing Aid - Bilateral Review of Systems All systems reviewed & are unremarkable except as noted in HPI & below Physical Exam Constitutional: WD/WN, vitals as above Respiratory: normal respiratory effort; no respiratory distress Cardiovascular: Rate/Rhythm: regular rate and regular rhythm Musculoskeletal: Left shoulder with abnormal rhythm glenohumeral crepitation posterior translation increased with [id number] test painful active and passive range of motion range of motion limited with 100 degrees flexion 90 degrees abduction 60 degrees external rotation 35 degrees internal rotation internal rotation behind her back to S1, normal strength, neurovascular exam normal Skin: no rashes, warm and dry Neurologic: normal touch/pain/proprioception Psychiatric: A+Ox3, euthymic affect Results & Data Diagnostic Findings X-rays demonstrate [id number] glenohumeral joint with type C glenoid with posterior glenoid bone loss.
[~2024-03-06 08:16] MED LIST changes: -ACETAMINOPHEN 500 MG TAB PO SCH; +ATROPINE SULFATE 0.1 MG/ML 10ML SYR IV PRN; -BUPIVACAINE 0.5 % 5 MG/1 ML MPF 30ML VIAL ONE; -CeleBREX 200 MG CAP PO SCH; -FAMOTIDINE 20 MG TAB PO SCH; -GABAPENTIN 300 MG CAP PO SCH; +HYDROmorphone INJ 1 MG/ML SYRINGE IV PRN; -LACTATED RINGER'S 1,000 ML IV SCH; -LR 500ML BOLUS IV SCH; -METOCLOPRAMIDE HCL 10 MG TABLET PO SCH; +ONDANSETRON INJ 2 MG/ML 2 ML VIAL IV PRN; +PROMETHAZINE HCL 6.25 MG in SODIUM CHLORIDE 0.9% 50 ML IV PRN; -ROPIVACAINE 0.5% HCL/PF 150 MG, BUPIVACAINE 0.75% MPF 20 ML, EPINEPHrine 30MG/30ML (OR ... INFIL SCH; -TRANEXAMIC ACID 1,000 MG **IV Intra-op IV SCH; -TRANEXAMIC ACID 1,000 MG **IV Pre-op IV SCH; -ceFAZolin 2000MG 2,000 MG/15 ML SYR IV SCH; -dexAMETHasone 4 MG TAB PO SCH; +ePHEDrine sulfate 50 MG/ML AMP IV PRN; +fentaNYL citrate PF 100 MCG/2 ML VIAL IV PRN
[2024-03-06] MEDS ORDERED: PROPOFOL IV EMULSION 10 MG/ML 20 ML VIAL IV ONE (08:18)
[2024-03-06] MEDS ORDERED: DEXAMETHASONE SOD INJ 4 MG/ML VIAL ONE (08:18)
[2024-03-06] MEDS ORDERED: MIDAZOLAM HCL 1 MG/ML 2ML VIAL ONE (08:18)
[2024-03-06] MEDS ORDERED: ROCURONIUM BROMIDE 10 MG/ML 5 ML VIAL IV ONE ×2 (08:18→11:02)
[2024-03-06] MEDS ORDERED: fentaNYL citrate PF 100 MCG/2 ML VIAL ONE ×2 (08:18→12:31)
[2024-03-06] MEDS ORDERED: SUGAMMADEX SODIUM 200 MG/2 ML VIAL IV ONE (08:18)
[2024-03-06] MEDS ORDERED: ONDANSETRON INJ 2 MG/ML 2 ML VIAL ONE (08:18)
[2024-03-06] MEDS: LR 15ML/HR IV SCH (09:15)
[2024-03-06] MEDS: LR 60ML/HR IV SCH (09:15)
[2024-03-06] MEDS: FAMOTIDINE 20 MG TAB PO SCH (09:15)
[2024-03-06] MEDS: METOCLOPRAMIDE HCL 10 MG TABLET PO SCH (09:15)
[2024-03-06] MEDS: GABAPENTIN 300 MG CAP PO SCH (09:15)
[2024-03-06] MEDS: ACETAMINOPHEN 500 MG TAB PO SCH ×2 (09:15→15:11)
[2024-03-06] MEDS: CeleBREX 200 MG CAP PO SCH (09:16)
[2024-03-06] MEDS: dexAMETHasone**PF** 10 MG/ML VIAL IV SCH (09:16)
--- NOTE | 2024-03-06 09:37 | History & Physical Bridge Note ---
Date of Service March 06, 2024 History & Physical Bridge Note I have examined the patient, reviewed the History & Physical and in the interval since the performance of the History & Physical I have noted the following changes of clinical significance: no changes noted
--- OUTSIDE RECORDS SUMMARY | 2024-03-06 09:57 | External Medical Summary | Summary of Care ---
Author Name Unknown Organization [facility] Address [address] [place] [address] Phone [phone] Care Team Providers Care Director Of Marketing Operations Name Role Phone New Hilton DO Primary Care Provider [phone] Reason for Referral * Precert (Within 24 hrs (call dept; emergent)) - Authorized Specialty Diagnoses / Procedures Referred By Contac t Referred To Contact Radiology Diagnoses Abnormal findings on diagnostic imaging of other specified body structures Procedures CT CHEST W CONTRAST Radiology, [address] [address] Phone: tel: fax: Referral ID Status Reason Start Date Expiration Date V isits Requested Visits Authorized [id number] Authorized 02/26/2024 [id number] Reason for Visit * Precert (Within 24 hrs (call dept; emergent)) - Authorized Specialty Diagnoses / Procedures Referred By Contac t Referred To Contact Radiology Diagnoses Abnormal findings on diagnostic imaging of other specified body structures Procedures CT CHEST W CONTRAST Radiology, [address] [address] Phone: tel: fax: Referral ID Status Reason Start Date Expiration Date V isits Requested Visits Authorized [id number] Authorized 02/26/2024 [id number] Encounter Details Date Type Department Care Team (Latest Contact Info) Description 02/27/2024 4:19 PM EST - 02/27/2024 11:59 PM EST Hospital Encounter Radiology, [facility] [address] JUAREZ [id number] Arrived Discharge Disposition: Home - Self Care Allergies Active Allergy Reactions Criticality Noted Date Comments Codeine 08/06/2014 documented as of this encounter (statuses as of 02/28/2024) Medications TRIAMTERENE-HCT Z 37.5-25 MG PO CAPS 1 cap daily Active Meloxicam 15 MG Tablet Take 15 mg by mouth daily. 2 04/13/2015 Active loratadine (CLARITIN) 10 MG Tablet Take 10 mg by mouth daily. Active ibuprofen (MOTRIN) 200 MG Tablet Take 200 mg by mouth every 4 hours as needed for Pain. Active omeprazole (PRILOSEC) 20 MG CPDR Take 20 mg by mouth daily. 11/08/2016 Active FLUoxetine (PROZAC) 20 MG Capsule Take 1 Cap by mouth daily. 01/17/2017 Active DENTA 5000 PLUS 1.1 % cream 12/20/2016 Active Aspirin 81 MG Tablet Take 81 mg by mouth daily. Active allopurinol (ZYLOPRIM) 100 MG Tablet Take 100 mg by mouth daily. Active amLODIPine (NORVASC) 2.5 MG Tablet Take 10 mg by mouth daily. Active Famotidine 20 MG Oral Tablet (Pepcid) Take 20 mg by mouth at bedtime as needed for Heartburn. Active Ruxolitinib Phosphate 10 MG Oral Tablet (Jakafi)Indicat ions:Polycythem ia vera (HCC) Take 10 mg by mouth daily. 30 Tab 11 09/16/2020 Active Pravastatin Sodium 20 MG Oral Tablet (Pravachol) Take 20 mg by mouth daily. Active Hydroxyurea 500 MG Oral Capsule (Hydrea)Indicat ions:Polycythem ia vera (HCC) TAKE 1 CAPSULE BY MOUTH DAILY 90 Capsule 3 06/01/2021 Active documented as of this encounter (statuses as of 02/28/2024) Active Problems Problem Noted Date Diagnosed Date Polycythemia vera 02/08/2018 documented as of this encounter (statuses as of 02/28/2024) Immunizations Name Administration Dates Next Due COVID-19 mRNA, LNP-s, No Pre serve, 2-Dose Series (TBi Connect) 11/07/2020,02/24/2020,02/03/2020 COVID-19, MRNA-LNP, PF, 30 M CG/0.3 mL, 12 YRS AND ABOVE, IM (PFIZER-Comirnaty) 11/23/2023 Seasonal Influenza, High Dos e, Trivalent, PF, IM (Fluzone HD) 11/23/2023,11/03/2020 Seasonal Influenza, PF, 6 M & above, IM , (FluLaval or Fluzone) 11/22/2021 Seasonal Influenza, Quadriva lent Hd (Fluzone Hd) 11/08/2022 Seasonal Influenza, Quadriva lent, No Preserve, IM 11/28/2019,12/07/2018,10/27/2017 documented as of this encounter Social History Tobacco Use Types Packs/Day Years Used Date Smoking Tobacco: Never Smokeless Tobacco: Never Alcohol Use Standard Drinks/Week Comments Yes 0 (1 standard drink = 0.6 oz pur e alcohol) occasionally Comments No Sex and Gender Information Value Date Recorded Sex Assigned at Not on file Legal Sex Female 5:44 AM EST Gender Identity Not on file Sexual Orientation Not on file documented as of this encounter Plan of Treatment Scheduled Procedures Name Priority Associated Diagnoses Date/Ti me COLONOSCOPY FLEXIBLE PROXIMAL DIAGNOSTIC Recall Colon cancer screening Health Maintenance Due Date Last Done Comments DXA Scan 1955 Lipid Panel 1953 Depression Screening 1965 Hepatitis C Screening 1971 DTap/Tdap Vaccines (1 - Tdap) 1972 Pneumococcal Vaccine: 50+ Years (1 of 2 - PCV) 1972 Zoster Vaccines (1 of 2) 1972 Cologuard 1998 Fecal Occult Blood Test 1998 Sigmoidoscopy 1998 Mammogram 01/17/2013 01/18/2012 Colonoscopy 12/15/2026 12/15/2016, 12/15/2016 Colorectal Cancer Screening 12/15/2026 COVID-19 Vaccine Completed 11/23/2023, 03/2020, 02/24/2020, Additional history exists Influenza Vaccine (FLU shot) Completed , 11/08/2022, 11/22/2021, Additional history exists HPV (Gardasil) Vaccine Aged Out No lo nger eligible based on patient's age to complete this topic Hepatitis B Vaccine Aged Out No longe r eligible based on patient's age to complete this topic MENINGOCOCCAL (MENACTRA/MENVEO) Aged Out No longer eligible based on patient's age to complete this topic documented as of this encounter Medical Devices Not on filedocumented as of this encounter Procedures Procedure Name Priority Date/Time Associated Diagnosis Comments CT CHEST W CONTRAST STAT 02/27/2024 4 :56 PM EST Abnormal findings on diagnostic imaging of other specified body structures documented in this encounter Results * CT CHEST W CONTRAST (02/27/2024 4:56 PM EST) Anatomical Region Laterality Modality Chest, Body, Cardio Computed Dinh ography 02/27/2024 8:08 PM EST Impressions 02/27/2024 8:06 PM EST IMPRESSION 1. No acute findings in the chest. 2. Two [address]. Optional [address] chest in 12 months is recommended if high risk (history of smoking or lung disease). 3. Splenomegaly. Added to radiology results pathway communication system at 8:05 pm on 02/27/2024. Narrative 02/27/2024 8:06 PM EST EXAM EXAM: CT CHEST W CONTRAST DATE and TIME: 02/27/2024 4:56 pm HISTORY CLINICAL INFORMATION: Abnormal findings on diagnostic imaging of other specified body structures TECHNIQUE Axial images of the chest were obtained. Sagittal and coronal reformats were submitted. IV contrast: IV contrast was administered. COMPARISON Chest x-ray 02/11/2019 FINDINGS Lines and devices: None. Lungs and pleura: 4 mm lingular subpleural nodule (3:136) and 4 mm right upper lobe nodule (3:66). No consolidation or pleural effusion. Trachea and bronchi: Unremarkable. Mediastinum, brendon and lymph nodes: Small hiatal hernia. No lymphadenopathy. Heart and pericardium: Normal in size. No pericardial effusion. Vessels: Aortic atherosclerotic calcifications. No aneurysm. Six Soft tissues: Unremarkable. Upper abdomen: Splenomegaly 16 cm. Bones: Right shoulder arthroplasty.Degenerative osseous changes. Procedure Note Mohan Avalos MD - 02/27/2024 EXAM EXAM: CT CHEST W CONTRAST DATE and TIME: 02/27/2024 4:56 pm HISTORY CLINICAL INFORMATION: Abnormal findings on diagnostic imaging of otherspecified body structures TECHNIQUE Axial images of the chest were obtained. Sagittal and coronal reformatswere submitted. IV contrast: IV contrast was administered. COMPARISON Chest x-ray 02/11/2019 FINDINGS Lines and devices: None. Lungs and pleura: 4 mm lingular subpleural nodule (3:136) and 4 mm rightupper lobe nodule (3:66). No consolidation or pleural effusion. Trachea and bronchi: Unremarkable. Mediastinum, brendon and lymph nodes: Small hiatal hernia. Nolymphadenopathy. Heart and pericardium: Normal in size. No pericardial effusion. Vessels: Aortic atherosclerotic calcifications. No aneurysm. Six Soft tissues: Unremarkable. Upper abdomen: Splenomegaly 16 cm. Bones: Right shoulder arthroplasty.Degenerative osseous changes. IMPRESSION IMPRESSION 1. No acute findings in the chest. 2. Two [address]. Optional [address] chest in 12 months isrecommended if high risk (history of smoking or lung disease). 3. Splenomegaly. Added to radiology results pathway communication system at 8:05 pm on02/27/2024. Lisa Tran PA-C RAD CT F inal Result documented in this encounter Visit Diagnoses Diagnosis Abnormal findings on diagnostic imaging of other specified body structures documented in this encounter Administered Medications Inactive Administered Medications - up to 3 most recent administrations Medication Order MAR Action Action Date Dose Rate Site Iopamidol (Isovue 370) inj 80 mL 80 mL, Intravenous, ONCE, On 02/27/24 at 1659, For 1 dose, Radiology Medication Routing (Non-IR) Given 02/27/2024 4:57 PM EST 80 mL documented in this encounter Care Teams Director Of Marketing Operations Relationship Specialty Start Date End Date New Hilton DO PCP - General Family Medicine 02/08/18 documented as of this encounter
--- OUTSIDE RECORDS SUMMARY | 2024-03-06 09:57 | External Medical Summary | Summary of Care ---
Author Name Unknown Organization [facility] Address [address] [place] [address] Phone [phone] Care Team Providers Care [place] Reporter Name Role Phone New Hilton DO Primary Care Provider [phone] Reason for Referral * Precert (Within 24 hrs (call dept; emergent)) - Authorized Specialty Diagnoses / Procedures Referred By Contac t Referred To Contact Radiology Diagnoses Abnormal findings on diagnostic imaging of other specified body structures Procedures CT CHEST W CONTRAST Radiology, [address] [address] Phone: tel: fax: Referral ID Status Reason Start Date Expiration Date V isits Requested Visits Authorized [id number] Authorized 02/26/2024 [id number] Encounter Details Date Type Department Care Team (Late st Contact Info) Description 02/26/2024 Orders Only Radiology, [address] [address] Requisition, External Radiology [address] [place] [address] Abnormal findings on diagnostic imaging of other specified body structures* Allergies Active Allergy Reactions Criticality Noted Date Comments Codeine 08/06/2014 documented as of this encounter (statuses as of 02/26/2024) Medications TRIAMTERENE-HCT Z 37.5-25 MG PO CAPS [...] as of this encounter (statuses as of 02/26/2024) Active Problems Problem Noted Date Diagnosed Date Polycythemia vera 02/08/2018 documented as of this encounter (statuses as of 02/26/2024) Immunizations Name Administration Dates Next Due COVID-19 mRNA, LNP-s, No Pre serve, 2-Dose Series ([employer]) 11/07/2020,02/24/2020,02/03/2020 COVID-19, MRNA-LNP, PF, 30 M CG/0.3 mL, 12 YRS AND ABOVE, IM ([employer]) 11/23/2023 Seasonal Influenza, High Dos e, Trivalent, [...] as of this encounter Plan of Treatment Upcoming Encounters Date Type Department Care Team (Late st Contact Info) Description 02/27/2024 4:45 PM EST Appointment Radiology, [address] [address] Scheduled Orders Name Type Priority Associated Diagnoses Orde r Schedule CT CHEST W CONTRAST Medical Imaging STAT Abnormal findings on diagnostic imaging of other specified body structures Expected: 02/26/2024, Expires: 03/28/2025 Scheduled Procedures Name Priority Associated Diagnoses Date/Ti me COLONOSCOPY FLEXIBLE PROXIMAL DIAGNOSTIC Recall Colon cancer screening Health Maintenance Due Date Last Done Comments DXA Scan 1953 Lipid Panel 1953 Depression Screening 1965 Hepatitis C Screening 1971 DTap/Tdap Vaccines (1 - Tdap) 1972 Pneumococcal Vaccine: 50+ Years (1 of 2 - PCV) 1972 Zoster Vaccines (1 of 2) 1972 Mammogram 1993 Cologuard 1998 Fecal Occult Blood Test 1998 Sigmoidoscopy 1998 Colonoscopy 12/15/2026 12/15/2016, 12/15/2016 Colorectal Cancer Screening [...] Not on filedocumented as of this encounter Visit Diagnoses Diagnosis Abnormal findings on diagnostic imaging of other specified body structures- Primary documented in this encounter Care Teams [place] Reporter Relationship Specialty Start Date End Date New Hilton DO PCP - General Family Medicine 02/08/18 documented as of this encounter
[2024-03-06] MEDS: TRANEXAMIC ACID 1,000 MG **IV Pre-op IV SCH (10:02)
[2024-03-06] MEDS: ceFAZolin 2000MG 2,000 MG/15 ML SYR IV SCH ×2 (10:13→17:34)
[2024-03-06] MEDS ORDERED: ePHEDrine sulfate 50 MG/5 ML SYR ONE (10:33)
[2024-03-06] MEDS: TRANEXAMIC ACID 1,000 MG **IV Intra-op IV SCH (12:34)
--- NOTE | 2024-03-06 13:11 | Operative Report ---
Post Operative Report Pre & Post Diagnosis Operation Date: 03/06/24 09:40 Pre-Op Diagnosis: Left Shoulder glenohumeral osteoarthritis end-stage with biceps tendinopathy and rotator cuff tendinopathy Post-Op Diagnosis: Left Shoulder glenohumeral osteoarthritis end-stage with biceps tendinopathy and rotator cuff tendinopathy I identified the patient and participated in the time-out.: Yes Procedure Operation Date: 03/06/24 09:40 Actual Procedures p Left Reverse Total Shoulder Arthroplasty(Left)With augmented glenoid baseplate, biceps tenodesis- Fady Gómez MD Surgeon Fady Gómez MD Flat Lock Machine Operator Zaheer GOINS Estimated Blood Loss 125 Findings Consistent with Post-Op Diagnosis Specimens Humeral head Drains 2 Hemovac Anesthesia Type General Regional Complications none Disposition Disposition: Recovery Room Indications 68-year-old female with the chronic progressive left shoulder pain and decreased function. Radiographs demonstrate she is msko-up-meaj glenohumeral joint with a type C shaped glenoid with posterior glenoid bone loss. Description of Procedure The patient was taken to the operating room and anesthetized under regional block and general anesthetic. The patient was positioned on the operating table in a 30 beach chair position with a towel roll under the medial border of the left scapula. The arm was draped free to be able to manipulate the shoulder as needed. The left upper extremity was prepped and draped in usual sterile fashion. Exam demonstrated [id number] crepitation left shoulder with 80 degrees abduction 120 degrees forward flexion and 30 degrees external rotation. An anterior deltopectoral approach was performed. A longitudinal incision was made in the deltopectoral interval. The skin was incised sharply. Subcutaneous flaps were elevated off the fascia. The cephalic vein was dissected out and retracted lateral with the deltoid. The clavipectoral fascia was divided at the lateral margin of the conjoined tendon and extended up to the CA ligament. The following findings were noted: There was a large subacromial bursal fluid collection. There was rotator cuff tendinopathy supraspinatus but no full- thickness tear. The subscapularis tendon was intact superficially but deep subscapularis tendon had partial tearing and tendinopathy. There was some biceps tendinopathy and subluxation and proximal biceps was widened and had tendinopathy and splitting into the joint. The bursal fluid collection was all resected.. The upper centimeter of the pectoralis was released for inferior exposure. The biceps tendon sheath was resected around the biceps and the biceps tendon was tenodesed to the pectoralis tendon with #2 FiberWire rwajtz-sl-ysere and whipstitch type suture.. The proximal biceps was resected. The subscapularis tendon was taken down off the lesser tuberosity using a subperiosteal dissection. This revealed the partial tear of the subscapularis tendon which was debrided. A #1 Vicryl traction suture was placed into the free end of the subscapularis tendon and capsule. The subscapularis muscle fibers were split longitudinally at the level of the circumflex vessels. The circumflex vessels were identified and tied off with silk ties and divided laterally. A Kitner elevator was used to free up the inferior fibers of the subscapularis off of the capsule. The axillary nerve was identified with a tug test and protected with a blunt Souleymane retractor between the nerve and the capsule. The subscapularis tendon was then taken down off of the lesser tuberosity subperiosteally and subperiosteal dissection was performed along the neck of the humerus as the arm is gradually actually rotated exposing the humeral head. Humeral head was completely eburnated bone with circumferential osteophytes retractors were readjusted and the inferior osteophytes were all resected using an osteotome. A Witt elevator was used to assist in releasing the capsule of the neck of the humerus. The capsule was divided with Finney scissors down to the glenoid released off the anterior glenoid and the rotator interval was released to meet the capsular release and a 360 release of the subscapularis was accomplished. Some of the capsule was resected A Fukuda retractor was placed into the joint retracting the humeral head posterior. Glenoid findings demonstrated eburnated bone with a C-shaped posterior sloped glenoid with posterior superior bone loss. The labrum and biceps tendon remnant was resected. an anterior-inferior and posterior inferior capsular release were performed with electrocautery and a Witt elevator on bone with the axillary nerve protected inferiorly by the retractor. Attention was then taken to the humeral preparation. First I released the supraspinatus maintaining the infraspinatus and teres minor and resecting the supraspinatus tendon tissue. The cutting guide was placed into the humeral head. It was positioned at 20 of retroversion. Oscillating saw was used to resect the humeral head giving the cut above the level of the posterior rotator cuff insertion site. The humerus was then prepared for the stem. I used the ascend flex stem from [employer]. The sizing broaches were used followed by trial broaches up to a size 3B Long which had the appropriate fit and fill. The appropriate sized cut protector was placed. The humerus was then retracted posterior to the glenoid. The glenoid was sized for a [address] scan blueprint preoperative templating including custom guide fabrication. The guide for the baseplate was positioned and the central drill pin was placed. The full wedge 15 degree reamer for the 25 mm augmented baseplate was used. The reamer for the central boss was used. The depth gauge was used to measure for the central screw. The 25 mm full wedge augmented baseplate, perform [employer], with 6.5 x 35 mm central screw was screwed into the glenoid with a tight screw fixation and tight fit with a wedge placed posterior superior at the 2 o'clock position. The base plate was transfixed with posterior superior compression screw at the maximum augment wedge level followed by 3 additional locking screws with excellent fixation and hard sclerotic bone. The fan reamer was used for the 39 millimeter glenoid sphere. After irrigation the 39 centered glenoid sphere was impacted onto the baseplate and the screw was tightened. Attention was taken back to the humerus. The cut protector was removed and the +0 low offset humeral tray trial was assembled to the trial stem rotated appropriately to get bony coverage and then screwed in position. A trial reduction was performed. A +6/39 trial insert demonstrated good stability and no shuck. The trials were removed. 3 drill holes are made into the harder bone in the bicipital groove area and 3 #5 FiberWire sutures were placed transosseously. The canal was irrigated with pulsatile saline solution. The final component was assembled. The final component was ascend Flex 3B Long stem +0 low offset humeral tray with a 39/+6 reversed polyethylene flex insert. This was then impacted into the humerus with a tight press-fit. It was reduced to the glenoid sphere. Stability was verified. Subscapularis was repaired with the #5 FiberWire sutures using Jimi-Eugene suture technique. Lateral row soft tissue repair was performed with #2 FiberWire [id number]-[id number] sutures. The pectoralis was repaired with #2 FiberWire hocvrd-pd-kagoo sutures reinforcing the biceps tendon tenodesis. The arm was taken through a range of motion which demonstrated 130 degrees forward flexion 100 degrees abduction and 50 to 60 degrees external rotation without tension on repair. The implant was stable through the range of motion tested. The wound was copiously irrigated. 2 Hemovac drains were placed. The deltopectoral interval was closed with [id number]-lr-[id number] #1 Vicryl sutures. The subcutaneous tissues were closed with 2- 0 Vicryl sutures. The skin was closed with surgical rui. Silverlon sterile dressing was applied and a shoulder immobilizer. Zaheer Christensen my physician school bus driver/teacher assistant assisted in the procedure to the entire procedure including patient positioning arm positioning prepping and draping soft tissue retraction instrument management suture management and performed the subcutaneous and skin closure and will participate in the postoperative care of the patient. I attest to the content of the Intraoperative Record and any orders documented therein. Any exceptions are noted below.
--- NOTE | 2024-03-06 13:53 | Anesthesiology Progress Note ---
Date of Service March 06, 2024 Anesthesia Post Procedure Vital Signs Vital Signs: Temp Pulse Pulse Resp BP Pulse Ox O2 Del Method 03/06/24 13:40 37.4 C 76 14 150/88 H 94 Nasal Cannula 03/06/24 13:30 77 19 137/97 93 Oxymask 03/06/24 13:20 80 14 135/76 94 Oxymask 03/06/24 13:10 83 14 155/89 H 94 Oxymask 03/06/24 13:02 36 C L 79 17 159/100 H 95 Oxymask 03/06/24 08:50 36.8 C 73 20 157/92 H 96 Room Air O2 Flow Rate 03/06/24 13:40 2 03/06/24 13:30 3 03/06/24 13:20 8 03/06/24 13:10 8 03/06/24 13:02 8 03/06/24 08:50 Transfer of Care Handoff Completed per policy Notes Mental Status: alert / awake / arousable and participated in evaluation Patient Amnestic to Procedure: Yes Nausea / Vomiting: adequately controlled Pain: adequately controlled Airway Patency, RR, SpO2: stable & adequate BP & HR: stable & adequate Hydration State: stable & adequate Anesthetic Complications: no major complications apparent and Pt Satisfied with anesthetic care
--- NOTE | 2024-03-06 13:54 | XRay Report ---
XR shoulder LT min 2V routine CLINICAL HISTORY: Post shoulder surgery COMPARISON: None FINDINGS: Left shoulder prosthesis shows no hardware complication. Postoperative drain and skin stap les are present. There is expected soft tissue gas. IMPRESSION: Unremarkable postoperative exam. ACT 112: Negative or not required by law. Electronically signed by: Phillip Soriano M.D. 03/06/2024 1:52 PM
[2024-03-06] MEDS ORDERED: METOCLOPRAMIDE HCL INJ 5 MG/ML 2 ML VIAL IV PRN (14:10)
[2024-03-06] MEDS ORDERED: MAGNESIUM HYDROXIDE SUSP 30 ML UDC PO PRN (14:10)
[2024-03-06] MEDS ORDERED: NALOXONE HCL 0.4 MG/1 ML VIAL/CARP IV PRN (14:10)
[2024-03-06] MEDS ORDERED: ONDANSETRON INJ 2 MG/ML 2 ML VIAL IV PRN (14:10)
[2024-03-06] MEDS ORDERED: oxyCODONE HCL IR 5 MG TAB (IMMEDIATE RELEASE) PO PRN (14:10)
[2024-03-06] MEDS ORDERED: KETOROLAC TROMETHAMINE 15 MG/ML VIAL IV PRN (14:10)
[2024-03-06] MEDS ORDERED: hydrOXYzine HCl 10 MG TAB PO PRN (14:10)
[2024-03-06] MEDS ORDERED: bisacodyL 10 MG SUPP PR PRN (14:10)
[2024-03-06] MEDS ORDERED: diphenhydrAMINE Capsule 25 MG CAP PO PRN (14:10)
[2024-03-06] MEDS ORDERED: HYDROmorphone INJ 0.5 MG/0.5 ML SYR IV PRN (14:10)
[2024-03-06] MEDS ORDERED: ALUMINUM/MAGNESIUM SUSP 30 ML UDC PO PRN (14:10)
[2024-03-06] MEDS: TRANEXAMIC ACID / 0.7% NACL 1,000 MG/100 ML BAG IV SCH (18:36)
[2024-03-06] MEDS: SENNA 8.6 MG TAB PO SCH (21:49)
[2024-03-06] MEDS: DOCUSATE SODIUM 100 MG CAP PO SCH (21:49)
[2024-03-06] MEDS: APIXABAN 2.5 MG TAB PO SCH (21:49)
[2024-03-06] MEDS: PANTOprazole 40 MG TAB PO SCH (21:49)
[2024-03-06] MEDS: RUXOLITINIB PHOSPHATE PO SCH (21:50)
[2024-03-06] MEDS: PRAVASTATIN SOD 10 MG TAB PO SCH (21:50)
[2024-03-06] MEDS: HYDROXYUREA 500 MG CAP PO SCH (21:50)
[2024-03-07 07:08] VITALS: BP 129/73; PULSE 67; RESP 18; TEMP 97.5; O2SAT 95
[2024-03-07] MEDS: allopurinoL 300 MG TAB PO SCH (07:19)
[2024-03-07] MEDS: FLUoxetine HCL 20 MG CAP PO SCH (07:19)
[2024-03-07] MEDS: amLODIPine BESYLATE 5 MG TAB PO SCH (07:19)
[2024-03-07] MEDS: MULTIVITAMIN TAB PO SCH (07:20)
[2024-03-07] MEDS: TRIAMTERENE/HCTZ 37.5/25MG TAB PO SCH (07:20)
[2024-03-07] MEDS: CETIRIZINE HCL 10 MG TABLET PO SCH (07:20)
[2024-03-07] MEDS: CALCIUM 600MG + VIT D 400 IU TAB PO SCH (07:20)
[2024-03-07] MEDS: dexAMETHasone 10 MG in SYRINGE 0 ML IV SCH (07:21)
--- NOTE | 2024-03-07 07:56 | Orthopedic Progress Note ---
Date of Service March 07, 2024 Assessment & Plan (1) Osteoarthritis of left shoulder region: Plan: Severe glenohumeral osteoarthritis with bone loss glenoid. Patient had successful right shoulder replacement which required bio RSA technique with bone grafting glenoid. Left shoulder is amenable to wedge augmented component. Patient had CT blueprint preoperative templating with custom guide. Proceed with left reverse total shoulder replacement. Postop day 1 left shoulder placement. Patient stable doing well. Should be able to be discharged home pending lab review. Patient just do home exercises for a few weeks and will start PT after 2 weeks. She needs follow-up in 2 weeks get rui removed. Will discontinue drain prior to discharge. Admission and Anticipated Discharge Date Admission Date: March 06, 2024 Subjective Still numb from nerve block no pain feels well Review of Systems Review of Systems: No chest pain shortness of breath or any medical issues. Physical Exam Musculoskeletal: Dressing dry and intact, still numb from nerve block and no pain in shoulder at this time. Circulation normal. Results & Data Vital Signs (Past 12 Hours) Vital Signs Temp Pulse Resp BP Pulse Ox O2 Del Method O2 Flow Rate 03/07/24 07:07 36.4 C L 67 18 129/73 95 Nasal Cannula 2 03/07/24 03:09 36.5 C 69 16 112/70 93 Nasal Cannula 2 03/06/24 23:10 36.9 C 72 16 108/69 93 Nasal Cannula 2 Diagnostic Findings Well aligned left reverse total shoulder replacement (1) Osteoarthritis of left shoulder region Osteoarthritis type: primary Qualified Code(s): M19.012 - Primary osteoarthritis, left shoulder
[2024-03-07 08:04] LABS: Hematocrit (blood only) 32.4 % (37.0-47.0); Hemoglobin 10.2 g/dl (12.0-16.0); Mean Corpuscular Hemoglobin 27.9 pg (25.0-34.0); Mean Corpuscular Hgb Conc 31.5 g/dL (32.0-36.0); Mean Corpuscular Volume 88.8 fL (80.0-100.0); Mean Platelet Volume 11.5 fL (9.4-12.4); Platelet Count 445 K/uL (130-400); RDW Coefficient of Variation 17.6 % (11.5-14.5); RDW Standard Deviation 56.1 fL (36.4-46.3); Red Blood Count 3.65 M/uL (4.20-5.40); White Blood Count 11.53 K/ul (4.8-10.8)
[2024-03-07 08:07] LABS: BUN Creatinine Ratio 25.4 (10-20); Calcium 8.6 mg/dl (8.6-10.3); Creatinine Clr Calc Pharmacy 48.8 ml/min; Potassium 4.2 mmol/L (3.5-5.1)
[2024-03-07 08:44] LABS: Basophils # (auto) 0.02 K/uL (0.00-0.20); Basophils % (auto) 0.2 %; Immature Granulocytes # (auto) 0.17 K/uL (0.01-0.20); Immature Granulocytes % (auto) 1.5 %; Lymphocytes # (auto) 0.37 K/uL (1.20-3.40); Lymphocytes % (auto) 3.2 %; Monocytes # (auto) 0.45 K/uL (0.11-0.59); Monocytes % (auto) 3.9 %; Neutrophils # (auto) 10.52 K/uL (1.40-6.50); Neutrophils % (auto) 91.2 %
--- NOTE | 2024-03-07 11:34 | Communication Note ---
Date of Service: March 07, 2024 Hospitalist consult not completed prior to discharge order being entered. Reviewed patient chart, vitals, and labs. No acute medical needs. She was di scharged home without services.
== END 2024-03-07 11:00 | disposition home or self-care (01) ==
LOC: ASU 08:16 → 3E 08:16